=== PATIENT | male | born 1975 | race Caucasian/White ===

== ENCOUNTER 2018-07-30 11:19 | Emergency (ER) | payer BC, OTHER ==
[~2018-07-30] VITALS: Ht 188 cm; Wt 99.8 kg
[2018-07-30] MEDS ORDERED: ONDANSETRON HCL 4 MG/2 ML VIAL IV ONE (11:45)
[2018-07-30 11:51] LABS: Basophils # (auto) 0.1 uL; Basophils % (auto) 0.5 % (0.0-2.0); Eosinophils # (auto) 0 uL; Eosinophils % (auto) 0.3 % (0.0-7.0); Hematocrit 48.7 % (41.0-53.0); Hemoglobin 16.9 g/dL (13.5-17.5); Lymphocytes # (auto) 1.5 uL; Lymphocytes % (auto) 13.5 % (10.0-50.0); Mean Corpuscular Hemoglobin 31.6 pg (28.0-32.0); Mean Corpuscular Hgb Conc. 34.6 g/dL (32.0-36.0); Mean Corpuscular Volume 91.2 fL (80.0-100.0); Monocytes # (auto) 1.6 uL; Monocytes % (auto) 14.3 % (0.0-12.0); Neutrophils # (auto) 8.2 uL; Neutrophils % (auto) 71.4 % (37.0-80.0); Nucleated Red Blood Cells % 0.1 %; Platelet Count (auto) 261 10^3/uL (140-450); Red Blood Cells 5.34 10^6/uL (4.5-5.90); Red Cell Distribution Width 14.4 % (11.8-14.3); White Blood Cell 11.4 10^3/uL (4.4-10.8)
[2018-07-30] MEDS ORDERED: SODIUM CHLORIDE 0.9% 1,000 ML IV ONE ×2 (11:54→14:00)
[2018-07-30] MEDS ORDERED: PANTOPRAZOLE 40 MG/10 ML VIAL IV ONE (12:00)
[2018-07-30 12:18] LABS: Albumin 3.6 g/dL (3.4-5.0); Calcium 9.1 mg/dL (8.5-10.1)
[2018-07-30 12:30] LABS: BUN/Creatinine Ratio 10.8; Bilirubin, Total 0.7 mg/dL (0.2-1.0); Total Protein 7.4 g/dL (6.4-8.2)
[2018-07-30 16:08] VITALS: BP 125/68
== END 2018-07-30 16:57 | disposition home or self-care (01) ==
LOC: ER 11:24
DX: R11.2 Nausea with vomiting, unspecified (principal); T45.1X5A Adverse effect of antineoplastic and immunosuppressive drugs, initial encounter; E78.5 Hyperlipidemia, unspecified; F17.210 Nicotine dependence, cigarettes, uncomplicated; Z88.1 Allergy status to other antibiotic agents; Y92.89 Other specified places as the place of occurrence of the external cause
CPT/HCPCS: 36415; 70450; 80053; 83735; 85025; 94761; 96361; 96374; 96375; 99284; C9113; J2405; J7030

== ENCOUNTER 2018-08-16 15:43 | Inpatient (IN) | payer BC ==
[~2018-08-16] VITALS: Ht 188 cm; Wt 90.7 kg
[2018-08-16 16:56] LABS: Potassium 4.4 mmol/L (3.5-5.1)
[2018-08-16 16:58] LABS: Hematocrit 46.9 % (41.0-53.0); Hemoglobin 15.7 g/dL (13.5-17.5); Mean Corpuscular Hemoglobin 29.8 pg (28.0-32.0); Mean Corpuscular Hgb Conc. 33.6 g/dL (32.0-36.0); Mean Corpuscular Volume 88.9 fL (80.0-100.0); Platelet Count (auto) 380 10^3/uL (140-450); Red Blood Cells 5.27 10^6/uL (4.5-5.90); Red Cell Distribution Width 14.5 % (11.8-14.3); White Blood Cell 5.9 10^3/uL (4.4-10.8)
[2018-08-16 17:07] LABS: BUN/Creatinine Ratio 8.5; Bilirubin, Total 0.8 mg/dL (0.2-1.0); Total Protein 7.4 g/dL (6.4-8.2)
[2018-08-16 17:32] LABS: Basophils % (manual) 0 (0.0-2.0); Blast Cells 0; Metamyelocytes % 0; Myelocytes % 0; Promyelocytes % 0
[2018-08-16] MEDS ORDERED: PANTOPRAZOLE 40 MG/10 ML VIAL IV STA (18:26)
[2018-08-16] MEDS ORDERED: PROCHLORPERAZINE EDISYLATE 5 MG/ML 2ML VIAL IV ONE (18:30)
[2018-08-16 18:50] LABS: Band Neutrophils % (manual) 9; Eosinophils % (manual) 3 (0-7); Lymphocytes % (manual) 28 (10.0-50.0); Monocytes % (manual) 18 (0-12); Reactive Lymphocytes 1
[2018-08-16 19:11] LABS: Amylase 52 U/L (25-115); Lipase 428 U/L (73-393)
[2018-08-16] MEDS ORDERED: LORazepam 0.5 MG TAB PO PRN (21:45)
[2018-08-16] MEDS ORDERED: ACETAMINOPHEN 500 MG TAB PO PRN (21:45)
[2018-08-16] MEDS: SODIUM CHLORIDE 0.9% 1,000 ML IV SCH (21:55)
[2018-08-16] MEDS: PANTOPRAZOLE 40 MG/10 ML VIAL IV SCH (23:16)
--- NOTE | 2018-08-16 23:20 | NUR ---
MS admit from ER ROOT,MELANIA admitted to tele/MS after SBAR received. Patient oriented to MELIZA MAY, primary RN, unit, room, bed, and unit policies regarding patient care and visiting hours. Patient weighed by bed scale and encouraged to call if they need something. All questions and concerns addressed, patient verbalized understanding. Patient has 4 bottles of medications, will send to pharmacy. No active vomiting noted. IV fluids continued, infusing at 75ml/hr to right forearm IV. Skin intact. Denies Pain.
[2018-08-16 23:36] VITALS: BP 111/61
[2018-08-17] MEDS ORDERED: NAP500T PO (01:26)
[2018-08-17] MEDS ORDERED: SIMV5TAB50 PO (01:26)
[2018-08-17] MEDS ORDERED: METO5TAB2 PO (01:26)
[2018-08-17] MEDS ORDERED: PRO10T PO (01:26)
[2018-08-17 04:53] LABS: Hematocrit 38.9 % (41.0-53.0); Mean Corpuscular Hemoglobin 29.8 pg (28.0-32.0); Mean Corpuscular Hgb Conc. 33.5 g/dL (32.0-36.0); Mean Corpuscular Volume 88.8 fL (80.0-100.0); Platelet Count (auto) 290 10^3/uL (140-450); Red Blood Cells 4.38 10^6/uL (4.5-5.90); Red Cell Distribution Width 14.4 % (11.8-14.3); White Blood Cell 5.7 10^3/uL (4.4-10.8)
[2018-08-17 05:00] VITALS: BP 103/58
[2018-08-17 05:12] LABS: Basophils % (manual) 0 (0.0-2.0); Blast Cells 0; Metamyelocytes % 0; Myelocytes % 0; Promyelocytes % 0; Reactive Lymphocytes 0
[2018-08-17 05:15] LABS: BUN/Creatinine Ratio 12.5; Calcium 7.9 mg/dL (8.5-10.1); Potassium 4.3 mmol/L (3.5-5.1)
--- NOTE | 2018-08-17 07:20 | NUR ---
Opening Shift Note Assumed care of patient, awake and alert. No S/S of distress/SOB or pain. Instructed on POC and to call for assist PRN, will continue to monitor for changes Q1hr and PRN.
[2018-08-17 07:33] LABS: Band Neutrophils % (manual) 5; Eosinophils % (manual) 1 (0-7); Lymphocytes % (manual) 26 (10.0-50.0); Monocytes % (manual) 15 (0-12)
[2018-08-17 08:00] VITALS: BP 98/64
[2018-08-17 09:00] VITALS: BP 98/64
[2018-08-17] MEDS: PANTOPRAZOLE 40 MG/10 ML VIAL IV SCH ×2 (09:25→22:01)
[2018-08-17] MEDS: NICOTINE 21MG/24 HR TOPICAL PATCH TD SCH (09:25)
[2018-08-17] MEDS: SODIUM CHLORIDE 0.9% 1,000 ML IV SCH ×2 (09:26→22:14)
[2018-08-17 12:50] VITALS: BP 100/61
[2018-08-17] MEDS ORDERED: GOLYTELY 4L KIT PO ONE (14:45)
[2018-08-17 17:27] VITALS: BP 123/77
--- NOTE | 2018-08-17 19:20 | NUR ---
Opening Shift Note Assumed care of patient, awake and alert. No S/S of distress/SOB or pain. Instructed on POC and to call for assist PRN. Bed in lowest locked position, call light within reach, side rails up x2. Will continue to monitor for changes Q1hr and PRN.
[2018-08-17 20:29] LABS: Urine Bacteria NONE SEEN /hpf (None Seen); Urine Blood Negative /uL (Negative); Urine Specific Gravity 1.013 (1.001-1.035); Urine WBC 1 /hpf (0 - 3)
[2018-08-17 22:00] VITALS: BP 119/72
[2018-08-18 05:12] VITALS: BP 96/60
[2018-08-18 05:54] LABS: Hematocrit 36.9 % (41.0-53.0); Hemoglobin 12.7 g/dL (13.5-17.5); Mean Corpuscular Hemoglobin 30.8 pg (28.0-32.0); Mean Corpuscular Hgb Conc. 34.4 g/dL (32.0-36.0); Mean Corpuscular Volume 89.4 fL (80.0-100.0); Platelet Count (auto) 278 10^3/uL (140-450); Red Blood Cells 4.13 10^6/uL (4.5-5.90); Red Cell Distribution Width 14.3 % (11.8-14.3); White Blood Cell 5.5 10^3/uL (4.4-10.8)
[2018-08-18] MEDS ORDERED: GOLYTELY 4L KIT PO ONE (06:00)
[2018-08-18 06:06] LABS: INR 1.03 (0.9-1.15)
[2018-08-18 06:14] LABS: Basophils % (manual) 0 (0.0-2.0); Blast Cells 0; Metamyelocytes % 0; Myelocytes % 0; Promyelocytes % 0; Reactive Lymphocytes 0
[2018-08-18 06:18] LABS: Potassium 3.8 mmol/L (3.5-5.1)
--- NOTE | 2018-08-18 07:00 | NUR ---
Opening Shift Note Assumed care of the patient from the supervisor grading RN. The patient is A&Ox4, no signs or symptoms of distress. Educated the patient on POC and patient verbalized understanding. The patient's call light is within reach and bed is in the lowest, locked position. Will round hourly and continue to monitor.
[2018-08-18 08:00] VITALS: BP 103/61
[2018-08-18 08:01] LABS: Band Neutrophils % (manual) 15; Eosinophils % (manual) 2 (0-7); Lymphocytes % (manual) 24 (10.0-50.0); Monocytes % (manual) 28 (0-12)
[2018-08-18 09:00] VITALS: BP 103/61
[2018-08-18] MEDS: PANTOPRAZOLE 40 MG/10 ML VIAL IV SCH (09:41)
[2018-08-18] MEDS ORDERED: NALOXONE HCL 0.4 MG/ML VIAL ONE (10:40)
[2018-08-18] MEDS ORDERED: SODIUM CHLORIDE LOCK 10 ML ONE (10:40)
[2018-08-18] MEDS ORDERED: FLUMAZENIL 0.1 MG/ML INJ 10ML MDV IV ONE (10:40)
[2018-08-18] MEDS ORDERED: LIDOCAINE VISCOUS 2% 15ML UD ONE (10:40)
[2018-08-18] MEDS ORDERED: diphenhdrAMINE HCL 50 MG/1 ML VL ONE (10:41)
[2018-08-18] MEDS ORDERED: MIDAZOLAM HCL 5 MG/ML-1ML VIAL ONE (10:42)
[2018-08-18] MEDS ORDERED: fentaNYL CITRATE 100 MCG/2 ML VL ONE (10:43)
--- NOTE | 2018-08-18 11:10 | NUR ---
Patient down for procedure. Taken by myself via wheelchair. Patient is stable with no signs or symptoms of distress.
[2018-08-18] MEDS: MIDAZOLAM HCL 5 MG/ML-1ML VIAL ONE ×3 (11:54→12:08)
[2018-08-18] MEDS: fentaNYL CITRATE 100 MCG/2 ML VL ONE ×3 (11:54→15:05)
--- NOTE | 2018-08-18 12:00 | NUR ---
UNABLE TO OBTAIN VITALS, PT IS NOT IN THE ROOM AT THIS TIME.
--- NOTE | 2018-08-18 12:45 | NUR ---
Patient back on floor Patient A&Ox4 and says he's hungry. Will carry out dietary order.
[2018-08-18] MEDS: NICOTINE 21MG/24 HR TOPICAL PATCH TD SCH (13:50)
[2018-08-18] MEDS: SODIUM CHLORIDE 0.9% 1,000 ML IV SCH (13:50)
[2018-08-18 17:00] VITALS: BP 115/69
[2018-08-18] MEDS: ONDANSETRON HCL 4 MG/2 ML VIAL IV PRN (17:16)
[2018-08-18] MEDS: PANTOPRAZOLE 40 MG TAB PO SCH (21:33)
[2018-08-18 21:56] VITALS: BP 104/67
[2018-08-19] MEDS: SODIUM CHLORIDE 0.9% 1,000 ML IV SCH (03:05)
[2018-08-19 05:17] VITALS: BP 111/69
--- NOTE | 2018-08-19 07:00 | NUR ---
Opening Shift Note Assumed care of the patient from the shiftman RN. The patient is A&Ox4, no signs or symptoms of distress. Educated the patient on POC and patient verbalized understanding.The patient's call light is within reach and bed is in the lowest, locked position. Will round hourly and continue to monitor.
[2018-08-19 07:51] VITALS: BP 101/60
[2018-08-19 08:00] VITALS: BP 101/60
[2018-08-19] MEDS ORDERED: metroNIDAZOLE 500 MG TAB PO ONE (09:30)
[2018-08-19] MEDS ORDERED: LEVOFLOXACIN 500 MG TAB PO ONE (09:30)
[2018-08-19] MEDS: PANTOPRAZOLE 40 MG TAB PO SCH (09:36)
[2018-08-19] MEDS: NICOTINE 21MG/24 HR TOPICAL PATCH TD SCH (09:36)
[2018-08-19 10:11] VITALS: BP 101/60
[2018-08-19] MEDS: ONDANSETRON HCL 4 MG/2 ML VIAL IV PRN (12:40)
[2018-08-19 14:18] VITALS: BP 100/63
--- NOTE | 2018-08-19 15:10 | NUR ---
Reported to Dr. Givens that the patient has had no nausea or vomiting since eating his lunch. He is cleared for discharge. Will carryout discharge orders.
--- NOTE | 2018-08-19 15:40 | NUR ---
Discharge instructions given as ordered. Encourage to follow up with PMD as instructed. All questions and concerns addressed. Patient verbalized understanding. Medication reconciliation form completed and copy given to patient. Home medications held in Pharmacy returned to patient, and needed vaccines given. IV removed with catheter intact, pressure dressing applied.Patient taken to vehicle via wheelchair with all personal belongings, accompanied by staff and family member. No distress noted at time of departure.
--- NOTE | 2018-08-19 15:50 | NUR ---
Spoke with patient's brother The patient's brother gave a 2 RN lieutenant shift supervisor for authorization for records from [facility] from his last admission. The 2nd RN is Rema. Will sign and fax order.
== END 2018-08-19 15:40 | disposition home or self-care (01) | DRG 379 ==
LOC: ER 15:43 → OVERFLOW 21:43 → CENTRAL 23:01
PROVIDERS: ADMIT Nurse Practitioner Family; ATTEND Internal Medicine
PROC: 0DB68ZX Excision of Stomach, Via Natural or Artificial Opening Endoscopic, Diagnostic (ICD-10-PCS; principal; 2018-08-18 11:50)
PROC: 0DBE8ZX Excision of Large Intestine, Via Natural or Artificial Opening Endoscopic, Diagnostic (ICD-10-PCS; 2018-08-18 11:50)
DX: K29.71 Gastritis, unspecified, with bleeding (principal); E78.5 Hyperlipidemia, unspecified; F17.210 Nicotine dependence, cigarettes, uncomplicated; K20.9 Esophagitis, unspecified; K52.9 Noninfective gastroenteritis and colitis, unspecified; K57.90 Diverticulosis of intestine, part unspecified, without perforation or abscess without bleeding; Z85.820 Personal history of malignant melanoma of skin; Z92.21 Personal history of antineoplastic chemotherapy; Z88.1 Allergy status to other antibiotic agents
CPT/HCPCS: 36415; 74176; 80048; 80053; 81001; 82150; 83690; 85007; 85027; 85610; 85730; 86850; 86900; 86901; 87045; 87493; 87899; 94761; 96374; 96375; 96376; C9113; G0378; J2250; J2405

== ENCOUNTER 2018-09-05 19:16 | Inpatient (IN) | payer BC ==
[~2018-09-05] VITALS: Ht 188 cm; Wt 82.1 kg
[~2018-09-05 19:16] MED LIST: METO5TAB2 PO; PRO10T PO; SIMV5TAB50 PO
[2018-09-05] MEDS ORDERED: SODIUM CHLORIDE 0.9% 1,000 ML IV ONE (20:15)
[2018-09-05 20:19] LABS: Basophils # (auto) 0 uL; Eosinophils # (auto) 0 uL; Eosinophils % (auto) 0.1 % (0.0-7.0); Lymphocytes # (auto) 0.7 uL; Mean Corpuscular Hemoglobin 29.3 pg (28.0-32.0); Mean Corpuscular Hgb Conc. 34.6 g/dL (32.0-36.0); Mean Corpuscular Volume 84.5 fL (80.0-100.0)
[2018-09-05 20:25] LABS: Basophils % (auto) 0.1 % (0.0-2.0); Hematocrit 50.2 % (41.0-53.0); Hemoglobin 17.4 g/dL (13.5-17.5); Lymphocytes % (auto) 5.1 % (10.0-50.0); Monocytes % (auto) 13.7 % (0.0-12.0); Platelet Count (auto) 447 10^3/uL (140-450); Red Blood Cells 5.94 10^6/uL (4.5-5.90); Red Cell Distribution Width 14.3 % (11.8-14.3); White Blood Cell 14.8 10^3/uL (4.4-10.8)
[2018-09-05 20:29] LABS: INR 1.6 (0.9-1.15); Partial Thromboplastin Time 31.5 sec (23.78-33.04); Prothrombin Time 16.7 sec (9.27-12.13)
[2018-09-05 20:31] LABS: Alanine Aminotransferase 15 U/L (16-61); Aspartate Aminotransferase 17 U/L (15-37); BUN/Creatinine Ratio 15.9; Blood Urea Nitrogen 17 mg/dL (7-18); Calcium 8.6 mg/dL (8.5-10.1); Carbon Dioxide 20 mmol/L (21-32); GFR African American 97 mL/min; GFR Non-African American 80 mL/min; Glucose 106 mg/dL (74-106); Magnesium 2.8 mg/dL (1.6-2.6); Sodium 121 mmol/L (136-145)
[2018-09-05 20:49] LABS: Albumin 2.8 g/dL (3.4-5.0); Alkaline Phosphatase 129 U/L (45-117); Bilirubin, Total 1.2 mg/dL (0.2-1.0); Total Protein 7.1 g/dL (6.4-8.2)
[2018-09-05 21:17] LABS: Anion Gap 16 (5-15); Chloride 85 mmol/L (98-107); Potassium 2.1 mmol/L (3.5-5.1)
[2018-09-05] MEDS ORDERED: POTASSIUM CHL 20MEQ/100ML 100 ML IV ONE ×2 (21:30→23:15)
[2018-09-05] MEDS ORDERED: HYDROmorphone HCL 2 MG/ML VL IV ONE (21:30)
[2018-09-06 02:29] LABS: Urine Bacteria FEW /hpf (None Seen); Urine Blood TRACE /uL (Negative); Urine Hyaline Cast FEW /lpf (0 - 2); Urine Specific Gravity 1.019 (1.001-1.035); Urine WBC 2 /hpf (0 - 3)
[2018-09-06] MEDS ORDERED: POTASSIUM CHL 20MEQ/100ML 100 ML IV SCH (12:15)
[2018-09-06] MEDS ORDERED: POTASSIUM CHL 20 Meq TABLET PO ONE (12:15)
[2018-09-06] MEDS ORDERED: ONDANSETRON HCL 4 MG/2 ML VIAL IV PRN (12:15)
[2018-09-06] MEDS ORDERED: MORPHINE SULF INJ 2 MG/ML SYRINGE 1ML IV PRN ×2 (12:15)
[2018-09-06] MEDS ORDERED: SODIUM CHLORIDE 0.9% 1,000 ML IV ONE (12:15)
[2018-09-06] MEDS ORDERED: NITROGLYCERIN 0.4 MG SL TAB SL PRN (12:15)
[2018-09-06] MEDS ORDERED: PANTOPRAZOLE 40 MG TAB PO ONE (13:00)
[2018-09-06] MEDS ORDERED: LEVOFLOXACIN 500MG 100 ML IV ONE (13:00)
[2018-09-06] MEDS ORDERED: PROMETHAZINE HCL 25 MG/ML 1ML ONE (14:28)
[2018-09-06 14:30] LABS: BUN/Creatinine Ratio 21.7
[2018-09-06 14:32] LABS: Potassium 2.2 mmol/L (3.5-5.1)
[2018-09-06] MEDS: PROMETHAZINE HCL 25 MG/ML 1ML IV PRN (15:13)
[2018-09-06] MEDS ORDERED: POTASSIUM CHLORIDE 20 MEQ, LIDOCAINE 1% (LOCAL ANESTH.) 2 ML in SODIUM CHL 0.9% 100 ML IV ONE (16:15)
[2018-09-06] MEDS: POTASSIUM CHL 20MEQ/100ML 100 ML IV SCH ×4 (17:00→22:59)
[2018-09-06] MEDS: metroNIDAZOLE 500MG/100ML 100 ML IV SCH ×2 (17:00→21:56)
[2018-09-06 20:08] LABS: BUN/Creatinine Ratio 22.2; Calcium 8.4 mg/dL (8.5-10.1)
[2018-09-06 20:15] LABS: Potassium 2.8 mmol/L (3.5-5.1)
[2018-09-07 03:04] LABS: Basophils # (auto) 0 uL; Basophils % (auto) 0.1 % (0.0-2.0); Eosinophils # (auto) 0.1 uL; Eosinophils % (auto) 0.6 % (0.0-7.0); Hematocrit 44.5 % (41.0-53.0); Hemoglobin 15.1 g/dL (13.5-17.5); Lymphocytes # (auto) 1.3 uL; Lymphocytes % (auto) 9.1 % (10.0-50.0); Mean Corpuscular Hemoglobin 29.3 pg (28.0-32.0); Mean Corpuscular Volume 86.1 fL (80.0-100.0); Monocytes # (auto) 1.6 uL; Monocytes % (auto) 11.3 % (0.0-12.0); Neutrophils # (auto) 10.9 uL; Neutrophils % (auto) 78.9 % (37.0-80.0); Nucleated Red Blood Cells % 0.1 %; Platelet Count (auto) 347 10^3/uL (140-450); Red Blood Cells 5.17 10^6/uL (4.5-5.90); Red Cell Distribution Width 14.5 % (11.8-14.3); White Blood Cell 13.8 10^3/uL (4.4-10.8)
[2018-09-07 03:28] LABS: BUN/Creatinine Ratio 19.7; Calcium 8.1 mg/dL (8.5-10.1); Potassium 3.1 mmol/L (3.5-5.1)
[2018-09-07] MEDS: metroNIDAZOLE 500MG/100ML 100 ML IV SCH ×3 (06:17→21:00)
--- NOTE | 2018-09-07 08:30 | NUR ---
PATIENT ARRIVED TO UNIT VIA WHEELCHAIR. PT AWAKE, ALERT, ORIENTED x4 DENIES DISCOMFORT AT MOMENT. ABLE TO VERBALIZE NEEDS. IV PRESENT TO RAC#20, RIGHT HAND#20. PT REPORTS SKIN INTACT. EFFORTLESS BREATHING ON ROOM AIR. BED IN LOWEST POSITION, WHEELS LOCKED, ORIENTED TO ROOM ENVIRONMENT. CALL LIGHT WITHIN REACH.
[2018-09-07 09:00] VITALS: BP 96/61
--- NOTE | 2018-09-07 09:00 | NUR ---
MRSA NARES SPECIMEN COLLECTED, SENT TO LAB.
[2018-09-07] MEDS: PANTOPRAZOLE 40 MG/10 ML VIAL INJ IV SCH (10:00)
[2018-09-07] MEDS ORDERED: PANTOPRAZOLE 40 MG TAB PO SCH (10:00)
[2018-09-07] MEDS: LEVOFLOXACIN 500MG 100 ML IV SCH (10:22)
[2018-09-07 13:00] VITALS: BP 100/65
[2018-09-07] MEDS: POTASSIUM CHL 20MEQ/100ML 100 ML IV SCH ×3 (13:48→17:34)
[2018-09-07] MEDS: methylPREDNISolone SOD SUCC 125 MG/2 ML VL IV SCH ×2 (13:48→21:00)
[2018-09-07 17:00] VITALS: BP 102/70
--- NOTE | 2018-09-07 19:15 | NUR ---
OPENING NOTE ASSUMED CARE OF PATIENT FROM DAY SHIFT MARE BROWN. PATIENT IS A/OX4 AND IS RESTING IN BED WITH EVEN AND UNLABORED RESPIRATIONS. HE DENIES ANY PAIN OR NAUSEA AT THIS TIME. NO S/S OF DISTRESS ARE NOTED. DISCUSSED POC WITH PATIENT AND ANSWERED QUESTIONS AND CONCERNS. BED IS LOW, LOCKED, CALL LIGHT IS IN REACH. WILL CONTINUE TO MONITOR FOR CHANGES Q1 AND PRN. .
[2018-09-07] MEDS: PROMETHAZINE HCL 25 MG/ML 1ML IV PRN (21:20)
[2018-09-07 22:00] VITALS: BP 106/69
[2018-09-08 05:00] VITALS: BP 100/64
[2018-09-08] MEDS: metroNIDAZOLE 500MG/100ML 100 ML IV SCH (05:02)
[2018-09-08] MEDS: methylPREDNISolone SOD SUCC 125 MG/2 ML VL IV SCH ×3 (05:03→21:12)
[2018-09-08] MEDS: PROMETHAZINE HCL 25 MG/ML 1ML IV PRN ×3 (05:40→20:42)
[2018-09-08 06:35] LABS: Basophils # (auto) 0 uL; Basophils % (auto) 0.1 % (0.0-2.0); Eosinophils # (auto) 0 uL; Eosinophils % (auto) 0.1 % (0.0-7.0); Hematocrit 44.1 % (41.0-53.0); Hemoglobin 14.8 g/dL (13.5-17.5); Lymphocytes # (auto) 1.3 uL; Lymphocytes % (auto) 8.8 % (10.0-50.0); Mean Corpuscular Hgb Conc. 33.6 g/dL (32.0-36.0); Mean Corpuscular Volume 86.3 fL (80.0-100.0); Monocytes # (auto) 0.7 uL; Monocytes % (auto) 4.9 % (0.0-12.0); Neutrophils # (auto) 12.3 uL; Neutrophils % (auto) 86.1 % (37.0-80.0); Platelet Count (auto) 324 10^3/uL (140-450); Red Blood Cells 5.11 10^6/uL (4.5-5.90); Red Cell Distribution Width 14.8 % (11.8-14.3); White Blood Cell 14.3 10^3/uL (4.4-10.8)
[2018-09-08 06:40] LABS: Calcium 6.7 mg/dL (8.5-10.1); Magnesium 3.1 mg/dL (1.6-2.6)
[2018-09-08 06:42] LABS: BUN/Creatinine Ratio 18.1
[2018-09-08 06:57] LABS: Potassium 2.6 mmol/L (3.5-5.1)
--- NOTE | 2018-09-08 06:58 | NUR ---
CRITICAL LAB VALUE K-2.6/HOSPITALIST PAGED
--- NOTE | 2018-09-08 07:12 | NUR ---
MARINE STRUCTURAL WELDER BONDS/NEW ORDERS RECEIVED FOR K 2.6 ORDER RECEIVED FOR 60MEQ POTASSIUM IV
[2018-09-08] MEDS ORDERED: POTASSIUM CHLORIDE 60 MEQ, LIDOCAINE 1% (LOCAL ANESTH.) 6 ML in SODIUM CHL 0.9% 500 ML IV ONE (07:15)
--- NOTE | 2018-09-08 07:30 | NUR ---
OPENING SHIFT NOTE: Received report from NOC RNMichaela. Assumed care of patient. Patient resting in bed, denies pain. Attempting to eat breakfast after receiving Phengren earlier. Bed in lowest position, rails x2 up and call light within reach. Updated on plan of care. Will continue to monitor.
--- NOTE | 2018-09-08 07:30 | NUR ---
CARE TRANSFERRED TO DAY SHIFT MARE WETZEL
[2018-09-08 08:00] VITALS: BP 103/70
[2018-09-08 08:39] VITALS: BP 103/70
[2018-09-08] MEDS: PANTOPRAZOLE 40 MG/10 ML VIAL INJ IV SCH (10:00)
[2018-09-08] MEDS: LEVOFLOXACIN 500MG 100 ML IV SCH (11:01)
[2018-09-08 13:00] VITALS: BP 108/73
--- NOTE | 2018-09-08 15:08 | NUR ---
Nutrition consult/assessment Notes please see attached link for complete assessment Est. Needs BW [id number] kcal (30-33 kcal/kgBW), 78-94 gms pro (1.0-1.2 gms/kgBW). Will continue to monitor pertinent labs and reassess nutrient need prn Addendum: 09/08/18 at [address] Amended: Links added.
--- NOTE | 2018-09-08 15:30 | NUR ---
EMESIS: PATIENT HAD ONE EPISODE OF EMESIS. 500MLS OF CLOUDY EMESIS WITH FOOD PARTICLES OUT. Signed: 09/08/18 at 1928 by SN ESTIVEN <Co-Signature Required> Co-Signed: 09/08/18 at 1928 by DAMARI REIS RN
[2018-09-08 17:00] VITALS: BP 107/73
--- NOTE | 2018-09-08 19:18 | NUR ---
CLOSING SHIFT NOTE: Report given to NOC RNMichaela. Endorsed care of patient.
[2018-09-08 19:20] LABS: Calcium 8.3 mg/dL (8.5-10.1); Potassium 3.1 mmol/L (3.5-5.1)
--- NOTE | 2018-09-08 19:25 | NUR ---
OPENING NOTE ASSUMED CARE OF PATIENT FROM DAY SHIFT RN DAMARI. PATIENT IS A/OX4 AND IS RESTING IN BED WITH EVEN AND UNLABORED RESPIRATIONS. HE DENIES ANY PAIN OR NAUSEA AT THIS TIME AND IS CURRENTLY EATING DINNER. NO S/S OF DISTRESS ARE NOTED. DISCUSSED POC WITH PATIENT AND ANSWERED QUESTIONS AND CONCERNS. BED IS LOW, LOCKED, CALL LIGHT IS IN REACH. WILL CONTINUE TO MONITOR FOR CHANGES Q1 AND PRN. .
[2018-09-08 22:00] VITALS: BP 112/75
--- NOTE | 2018-09-08 23:53 | NUR ---
DINNER PATIENT ATE 25%. TOLERATED WELL. HE WAS GIVEN PHENERGAN AT 1308 AND 2042. NO VOMITING.
[2018-09-09 05:20] VITALS: BP 104/70
[2018-09-09] MEDS: methylPREDNISolone SOD SUCC 125 MG/2 ML VL IV SCH ×3 (05:48→21:55)
[2018-09-09] MEDS: PROMETHAZINE HCL 25 MG/ML 1ML IV PRN ×3 (05:48→17:59)
[2018-09-09 06:56] LABS: BUN/Creatinine Ratio 17.7; Magnesium 2.9 mg/dL (1.6-2.6)
[2018-09-09] MEDS: ENSURE CLEAR Mixed Berry 8oz Carton PO SCH ×3 (07:32→17:07)
--- NOTE | 2018-09-09 07:32 | NUR ---
CARE TRANSFERRED TO DAY SHIFT MARE ARENAS
[2018-09-09 07:33] VITALS: BP 103/72
[2018-09-09 07:33] LABS: Potassium 2.6 mmol/L (3.5-5.1)
--- NOTE | 2018-09-09 07:33 | NUR ---
Opening Shift Note Received report from Michaela GARVEY. Assumed care of patient, awake and alert. No S/S of distress/SOB or pain. Instructed on POC and to call for assist PRN, will continue to monitor for changes Q1hr and PRN.
--- NOTE | 2018-09-09 07:33 | NUR ---
RECEIVED CALL FROM LAB, POTASSIUM OF 2.6. PAGED HOSPITALIST.
--- NOTE | 2018-09-09 07:35 | NUR ---
returned call Álvaro MACHADO returned call, updated on patient status and reason for call, orders received to give patient Potassium 40meqs PO x 1. Continue care.
[2018-09-09] MEDS ORDERED: POTASSIUM CHL 20 Meq TABLET PO ONE (07:45)
[2018-09-09 08:00] VITALS: BP 103/72
[2018-09-09] MEDS: PANTOPRAZOLE 40 MG TAB PO SCH (09:36)
[2018-09-09 13:17] VITALS: BP 104/66
--- NOTE | 2018-09-09 15:45 | NUR ---
Dr. Givens at bedside. Received new verbal orders, verified. See orders.
[2018-09-09] MEDS: POTASSIUM CHL 20MEQ/100ML 100 ML IV SCH ×3 (16:35→20:59)
[2018-09-09 17:22] VITALS: BP 106/69
--- NOTE | 2018-09-09 18:12 | NUR ---
K-RIDER 1ST BAG STILL ONGOING.
--- NOTE | 2018-09-09 19:53 | NUR ---
OPENING NOTES RECEIVED REPORT FROM DAY SHIFT NURSE. PT IS A/OX4 WITH NO S/S OF DISTRESS NOR PAIN WHILE ON 2 L. PT SHOWS NO S/S OF SOB. PT CURRENTLY INFUSING POTASSIUM. BED IS IN LOWEST POSITION WITH SIDE RAILS UP X 2 AND CALL LIGHT IS WITH IN REACH. BED BRAKES ARE LOCKED AND HOB IS 30 DEGREES. DISCUSSED POC WITH PATIENT. PT VERBALIZED UNDERSTANDING.
--- NOTE | 2018-09-09 20:58 | NUR ---
2ND BAG OF POTASSIUM 2ND BAG OF POTASSIUM FINISHED, WILL INFUSE 3RD BAG OF POTASSIUM.
[2018-09-09 22:00] VITALS: BP 107/70
--- NOTE | 2018-09-09 23:09 | NUR ---
3RD BAG OF POTASSIUM INFUSED
[2018-09-10 05:43] VITALS: BP 104/66
[2018-09-10] MEDS: methylPREDNISolone SOD SUCC 125 MG/2 ML VL IV SCH ×2 (05:48→14:32)
[2018-09-10] MEDS: PROMETHAZINE HCL 25 MG/ML 1ML IV PRN ×3 (05:56→18:51)
--- NOTE | 2018-09-10 07:18 | NUR ---
CLOSING NOTES ENDORSED CARE TO DAY SHIFT NURSELINDA.
--- NOTE | 2018-09-10 07:20 | NUR ---
Opening Shift Note Assumed care of patient, awake and alert. No S/S of distress/SOB or pain. Per patient, his diarrhea is getting less watery and has some particles now compared to yesterday. Instructed on POC and to call for assist PRN, will continue to monitor for changes Q1hr and PRN.
[2018-09-10 07:43] VITALS: BP 100/64
[2018-09-10] MEDS: ENSURE CLEAR Mixed Berry 8oz Carton PO SCH ×3 (10:17→18:51)
[2018-09-10] MEDS: PANTOPRAZOLE 40 MG TAB PO SCH (10:21)
[2018-09-10 11:54] VITALS: BP 96/66
[2018-09-10 15:11] LABS: Hematocrit 39.5 % (41.0-53.0); Hemoglobin 13.3 g/dL (13.5-17.5); Mean Corpuscular Hemoglobin 29.2 pg (28.0-32.0); Mean Corpuscular Hgb Conc. 33.7 g/dL (32.0-36.0); Mean Corpuscular Volume 86.8 fL (80.0-100.0); Platelet Count (auto) 289 10^3/uL (140-450); Red Blood Cells 4.55 10^6/uL (4.5-5.90); Red Cell Distribution Width 15.1 % (11.8-14.3); White Blood Cell 16.3 10^3/uL (4.4-10.8)
[2018-09-10 15:37] LABS: Basophils % (manual) 0 (0.0-2.0); Blast Cells 0; Eosinophils % (manual) 0 (0-7); Myelocytes % 0; Promyelocytes % 0; Reactive Lymphocytes 0
[2018-09-10 16:25] VITALS: BP 97/64
[2018-09-10 17:33] LABS: Band Neutrophils % (manual) 1; Lymphocytes % (manual) 11 (10.0-50.0); Metamyelocytes % 1; Monocytes % (manual) 5 (0-12)
[2018-09-10] MEDS ORDERED: POTASSIUM CHL 20 Meq TABLET PO ONE ×3 (17:45→20:30)
[2018-09-10] MEDS ORDERED: POTASSIUM EFFERVESENT TAB 25 MEQ PO ONE (18:00)
[2018-09-10 18:26] VITALS: BP 97/64
--- NOTE | 2018-09-10 19:10 | NUR ---
Patient and mom requested to have potassium level checked before he goes home [place]. Called lab and put in a stat order for potassium. Patient was also given Potassium Effervescent tablet 50 mEq one time dose karis per Dr. Givens's order to give prior to discharge.
--- NOTE | 2018-09-10 19:15 | NUR ---
Closing Note Patient is in bed, having his dinner. Mom at bedside. Patient is awaiting potassium result and pending discharge. Endorsed care to night RN.
--- NOTE | 2018-09-10 19:25 | NUR ---
OPENING NOTES RECEIVED PASS OFF FROM DAY SHIFT RN. THE PATIENT IS A/OX4 WITH NO S/S OF DISTRESS OR PAIN WHILE ON 2 L. THE PATIENT SHOWS NO S/S OF SOB. THE PATIENT IS CURRENTLY RESTING IN BED AND HIS MOTHER IS PRESENT AT BEDSIDE. THE BED IS IN LOWEST POSITION WITH SIDE RAILS UP X 2 AND CALL LIGHT IS WITH IN REACH. BED BRAKES ARE LOCKED AND HOB IS 30 DEGREES. DISCUSSED POC WITH PATIENT. PT VERBALIZED UNDERSTANDING.
--- NOTE | 2018-09-10 20:10 | NUR ---
THE PATIENT'S POTASSIUM IS 3.[address] DIAZ ABOUT RESULTS.
--- NOTE | 2018-09-10 20:20 | NUR ---
Received new verbal orders, from Dr. Givens. Order has been verified. See orders. Dr. Givens states that patient can be discharged after he receives additional potassium PO.
[2018-09-10] MEDS ORDERED: POTASSIUM EFFERVESENT TAB 25 MEQ GT ONE (21:00)
--- NOTE | 2018-09-10 21:40 | NUR ---
The patient was educated on his discharge instruction. The patient verbalized his understanding. The patient has been transported off the unit by the DIRECTOR OF OCCUPATIONAL THERAPY.
[2018-09-10 22:00] VITALS: BP 97/58
[2018-09-13 10:19] LABS: Hepatitis B Surface Antibody Positive
[2018-09-13 10:56] LABS: Hepatitis A Total Antibody Positive
[2018-09-13 14:02] LABS: Hepatitis C Antibody Negative (Negative)
[2018-09-13 14:03] LABS: Hepatitis B Core Total AB Negative; Hepatitis B Surface Antigen Negative (Negative)
== END 2018-09-10 21:40 | disposition home or self-care (01) | DRG 394 ==
LOC: EDBD 19:16 → ER 19:23 → TELE 09-06 12:14 → TELE-EAST 09-07 08:21
PROVIDERS: ADMIT Internal Medicine; ATTEND Internal Medicine
DX: K52.1 Toxic gastroenteritis and colitis (principal); E87.1 Hypo-osmolality and hyponatremia; C79.9 Secondary malignant neoplasm of unspecified site; E44.0 Moderate protein-calorie malnutrition; R55 Syncope and collapse; C43.9 Malignant melanoma of skin, unspecified; Z92.21 Personal history of antineoplastic chemotherapy; E87.6 Hypokalemia; Z88.8 Allergy status to other drugs, medicaments and biological substances; T45.1X5A Adverse effect of antineoplastic and immunosuppressive drugs, initial encounter; Y92.89 Other specified places as the place of occurrence of the external cause; Z68.23 Body mass index [BMI] 23.0-23.9, adult; E86.0 Dehydration; F17.210 Nicotine dependence, cigarettes, uncomplicated; K21.9 Gastro-esophageal reflux disease without esophagitis; Z80.0 Family history of malignant neoplasm of digestive organs; Z82.49 Family history of ischemic heart disease and other diseases of the circulatory system; Z82.5 Family history of asthma and other chronic lower respiratory diseases
CPT/HCPCS: 36415; 70450; 71045; 74176; 80048; 80053; 81001; 82962; 83735; 84100; 84132; 84484; 85007; 85025; 85027; 85610; 85730; 86704; 86706; 86708; 86803; 87081; 87340; 87493; 93005; 96361; 96365; 96366; G0378; J1956; J2001; J3480; J3490

== ENCOUNTER 2018-09-27 17:29 | Inpatient (IN) | payer BC ==
[~2018-09-27] VITALS: Ht 188 cm; Wt 75.9 kg
[2018-09-27 18:08] LABS: Basophils # (auto) 0.1 uL; Basophils % (auto) 0.5 % (0.0-2.0); Eosinophils # (auto) 0.2 uL; Eosinophils % (auto) 1.4 % (0.0-7.0); Hematocrit 46.2 % (41.0-53.0); Hemoglobin 15.8 g/dL (13.5-17.5); Lymphocytes % (auto) 13.7 % (10.0-50.0); Mean Corpuscular Hemoglobin 29.9 pg (28.0-32.0); Mean Corpuscular Hgb Conc. 34.1 g/dL (32.0-36.0); Mean Corpuscular Volume 87.6 fL (80.0-100.0); Monocytes % (auto) 7.1 % (0.0-12.0); Neutrophils # (auto) 11.4 uL; Neutrophils % (auto) 77.3 % (37.0-80.0); Platelet Count (auto) 328 10^3/uL (140-450); Red Blood Cells 5.27 10^6/uL (4.5-5.90); Red Cell Distribution Width 17.5 % (11.8-14.3); White Blood Cell 14.7 10^3/uL (4.4-10.8)
[2018-09-27 18:25] LABS: Albumin 3.4 g/dL (3.4-5.0); Calcium 8.3 mg/dL (8.5-10.1)
[2018-09-27 18:28] LABS: Bilirubin, Total 1.4 mg/dL (0.2-1.0); Total Protein 7.1 g/dL (6.4-8.2)
[2018-09-27 18:39] LABS: Potassium 1.9 mmol/L (3.5-5.1)
[2018-09-27] MEDS ORDERED: SODIUM CHLORIDE 0.9% 1,000 ML IVB ONE (18:59)
[2018-09-27] MEDS ORDERED: ONDANSETRON HCL 4 MG/2 ML VIAL IV ONE (19:00)
[2018-09-27] MEDS ORDERED: POTASSIUM CHL 20 Meq TABLET PO ONE (19:15)
[2018-09-27] MEDS ORDERED: POTASSIUM CHL 20MEQ/100ML 100 ML IV ONE (19:15)
[2018-09-27 19:16] LABS: Magnesium 2.7 mg/dL (1.6-2.6)
[2018-09-27] MEDS ORDERED: POTASSIUM EFFERVESENT TAB 25 MEQ GT ONE (20:00)
[2018-09-27] MEDS: metroNIDAZOLE 500MG/100ML 100 ML IV SCH (22:00)
[2018-09-27 22:14] LABS: Urine Bacteria NONE SEEN /hpf (None Seen); Urine Blood Negative /uL (Negative); Urine Specific Gravity 1.005 (1.001-1.035); Urine WBC 2 /hpf (0 - 3)
[2018-09-27] MEDS ORDERED: ACETAMINOPHEN 500 MG TAB PO PRN (22:30)
[2018-09-27] MEDS ORDERED: MORPHINE SULF INJ 2 MG/ML SYRINGE 1ML IV PRN (22:30)
[2018-09-27] MEDS ORDERED: HYDROcodone-ACET 5/325MG TAB PO PRN (22:30)
[2018-09-27] MEDS: SODIUM CHLORIDE 0.9% 1,000 ML IV SCH (22:43)
[2018-09-27 23:38] VITALS: BP 121/75
--- NOTE | 2018-09-28 | NUR ---
Telemetry admit from ER ROOT,MELANIA admitted to Telemetry unit after SBAR received. Patient oriented to TAWANA AHMADI, RN primary RN, unit, room, bed, and unit policies regarding patient care and visiting hours. Patient now on continuous telemetry monitoring, tele box #[id number] and telemetry reading on arrival to unit is NSR. Patient IS ON ROOM AIR, weighed by bedscale and encouraged to call if they need something. All questions and concerns addressed, patient verbalized understanding. Note: A&O X 4, NS INFUSING AT 100ML/HR, DENIES ANY PAIN AND NAUSEA, INSTRUCTED TO COLLECT 3RD LOOSE STOOL FOR CDIFF TEST.
[2018-09-28] MEDS ORDERED: DIPH2.5T73 PO (01:45)
[2018-09-28] MEDS ORDERED: CHL4PW PO (01:45)
[2018-09-28] MEDS ORDERED: CIPR-187 PO (01:45)
[2018-09-28] MEDS ORDERED: PANT40TA2 PO (01:45)
[2018-09-28] MEDS ORDERED: FAM20T PO (01:45)
[2018-09-28 05:00] VITALS: BP 103/64
[2018-09-28] MEDS: metroNIDAZOLE 500MG/100ML 100 ML IV SCH (05:37)
[2018-09-28 06:23] LABS: Calcium 8.1 mg/dL (8.5-10.1)
[2018-09-28 06:26] LABS: Basophils # (auto) 0 uL; Basophils % (auto) 0.2 % (0.0-2.0); Eosinophils # (auto) 0.3 uL; Eosinophils % (auto) 2.4 % (0.0-7.0); Hemoglobin 14.3 g/dL (13.5-17.5); Lymphocytes # (auto) 2.9 uL; Lymphocytes % (auto) 23.1 % (10.0-50.0); Mean Corpuscular Hemoglobin 29.9 pg (28.0-32.0); Monocytes % (auto) 7.6 % (0.0-12.0); Neutrophils # (auto) 8.5 uL; Neutrophils % (auto) 66.7 % (37.0-80.0); Platelet Count (auto) 280 10^3/uL (140-450); Red Blood Cells 4.77 10^6/uL (4.5-5.90); Red Cell Distribution Width 17.4 % (11.8-14.3); White Blood Cell 12.7 10^3/uL (4.4-10.8)
[2018-09-28 06:33] LABS: Potassium 2.3 mmol/L (3.5-5.1)
--- NOTE | 2018-09-28 06:42 | NUR ---
PAGED HOSPITALIST FOR CRITICAL LAB OF K-2.3. WAITING FOR CALL BACK.
--- NOTE | 2018-09-28 07:06 | NUR ---
ORDER TO GIVE 40 MEQ POTASSIUM IVX1 AND 60MEQ POTASSIUM PO X1 PER HOSPITALIST.
[2018-09-28] MEDS ORDERED: POTASSIUM EFFERVESENT TAB 25 MEQ PO ONE ×2 (07:15→20:45)
--- NOTE | 2018-09-28 07:15 | NUR ---
STOOL FOR CDIFF SENT.
[2018-09-28] MEDS: POTASSIUM CHL 20MEQ/100ML 100 ML IV SCH ×2 (08:14→09:37)
[2018-09-28 08:38] VITALS: BP 118/72
[2018-09-28] MEDS: PANTOPRAZOLE 40 MG TAB PO SCH (09:37)
[2018-09-28] MEDS: SODIUM CHLORIDE 0.9% 1,000 ML IV SCH ×2 (09:40→18:32)
[2018-09-28 13:00] VITALS: BP 112/71
--- NOTE | 2018-09-28 16:20 | NUR ---
STOOL SAMPLE SENT TO LAB FOR STOOL WBC AND STOOL CULTURE.
[2018-09-28 17:00] VITALS: BP 98/62
--- NOTE | 2018-09-28 18:45 | NUR ---
pt had total of 7 BM watery green color in moderate amount.
--- NOTE | 2018-09-28 19:30 | NUR ---
OPENING SHIFT NOTE ASSUMED CARE OF PATIENT FROM DAY SHIFT RN BALJEET. PATIENT IS A/OX4 WITH EVEN AND UNLABORED RESPIRATIONS. NO S/S OF DISTRESS NOTED. PATIENT DENIES ANY PAIN OR NAUSEA AT THIS TIME. BED IS IN LOWEST POSITION, LOCKED, AND CALL LIGHT IS IN REACH. REVERSE ISO IN PLACE. PATIENT INSTRUCTED ON POC AND TO CALL FOR ASSIST PRN. WILL CONTINUE TO MONITOR FOR CHANGES Q1 AND PRN.
--- NOTE | 2018-09-28 20:10 | NUR ---
CRITICAL LAB POTASSIUM LEFT A MESSAGE FOR DR HERNANDEZ. WAITING FOR CALL BACK.
[2018-09-28 20:12] LABS: BUN/Creatinine Ratio 7.8; Calcium 7.8 mg/dL (8.5-10.1)
[2018-09-28 20:14] LABS: Potassium 2.2 mmol/L (3.5-5.1)
--- NOTE | 2018-09-28 20:30 | NUR ---
DR MUSTAFA RETURNED CALL UPDATED ON PATIENT STATUS AND CRITICAL POTASSIUM LEVEL. NEW ORDERS RECEIVED BY TELEPHONE AND VERIFIED BY READ BACK. WILL CONTINUE CARE.
[2018-09-28] MEDS ORDERED: POTASSIUM CHL 20 Meq TABLET PO ONE (20:45)
[2018-09-28] MEDS ORDERED: POTASSIUM CHLORIDE 40 MEQ, LIDOCAINE 1% (LOCAL ANESTH.) 4 ML in SODIUM CHL 0.9% 100 ML IV ONE (20:45)
[2018-09-28] MEDS: ONDANSETRON HCL 4 MG/2 ML VIAL IV PRN (21:30)
[2018-09-28 21:59] VITALS: BP 114/61
[2018-09-29] MEDS ORDERED: POTASSIUM EFFERVESENT TAB 25 MEQ PO ONE ×5 (01:15→23:45)
[2018-09-29] MEDS: SODIUM CHLORIDE 0.9% 1,000 ML IV SCH ×2 (04:30→14:30)
[2018-09-29 04:55] VITALS: BP 109/67
[2018-09-29] MEDS: ONDANSETRON HCL 4 MG/2 ML VIAL IV PRN ×3 (06:30→18:50)
[2018-09-29 06:45] LABS: Basophils # (auto) 0 uL; Basophils % (auto) 0.4 % (0.0-2.0); Eosinophils # (auto) 0.3 uL; Eosinophils % (auto) 2.9 % (0.0-7.0); Hematocrit 39.6 % (41.0-53.0); Hemoglobin 13.4 g/dL (13.5-17.5); Lymphocytes # (auto) 2.8 uL; Lymphocytes % (auto) 24.1 % (10.0-50.0); Mean Corpuscular Hemoglobin 29.4 pg (28.0-32.0); Mean Corpuscular Hgb Conc. 33.9 g/dL (32.0-36.0); Mean Corpuscular Volume 86.8 fL (80.0-100.0); Monocytes % (auto) 8.3 % (0.0-12.0); Neutrophils # (auto) 7.5 uL; Neutrophils % (auto) 64.3 % (37.0-80.0); Nucleated Red Blood Cells % 0.1 %; Platelet Count (auto) 277 10^3/uL (140-450); Red Blood Cells 4.56 10^6/uL (4.5-5.90); Red Cell Distribution Width 17.2 % (11.8-14.3); White Blood Cell 11.7 10^3/uL (4.4-10.8)
[2018-09-29 06:49] LABS: INR 1.06 (0.9-1.15); Partial Thromboplastin Time 27.2 sec (23.64-32.05)
[2018-09-29 07:00] LABS: BUN/Creatinine Ratio 6.2
--- NOTE | 2018-09-29 07:30 | NUR ---
CARE TRANSFERRED TO DAY SHIFT MARE GARCIA
[2018-09-29 07:31] LABS: Potassium 2.8 mmol/L (3.5-5.1)
[2018-09-29] MEDS ORDERED: POTASSIUM CHLORIDE 40 MEQ, LIDOCAINE 1% (LOCAL ANESTH.) 4 ML in SODIUM CHL 0.9% 100 ML IV ONE ×2 (07:45→16:00)
[2018-09-29] MEDS ORDERED: POTASSIUM CHL 20 Meq TABLET PO ONE ×2 (07:45→09:30)
--- NOTE | 2018-09-29 08:00 | NUR ---
ASSESSMENT NOTE PATIENT IS ALERT ORIENTED X4, RESTING IN BED COMFORTABLY, NO DISTRESS NOTED, CONTINUE SLEEPY, GENERALIS WEAKNESS SNOTED, PAIN 0/10 AT THIS TIME, ABLE TO SELF REPOSITION AND VERBALIS HIS NEEDS, CALL LIGHT WITHIN REACH.
[2018-09-29 08:38] VITALS: BP 105/63
--- NOTE | 2018-09-29 09:22 | NUR ---
DR HERNANDEZ AT BED SIDE, DISCUSSING WITH PT THE DISCHARGE PLANING FOR TODAY
[2018-09-29] MEDS: PANTOPRAZOLE 40 MG TAB PO SCH (09:48)
--- NOTE | 2018-09-29 10:15 | NUR ---
FAMILY PATIENT'S MOM AT BED SIDE OPPOSING THE DISCHARGE HOME, DR HERNANDEZ MADE AWARE
[2018-09-29] MEDS ORDERED: DIPHENOXYLATE W/ATROPINE 2.5 MG TAB PO PRN (10:30)
--- NOTE | 2018-09-29 11:15 | NUR ---
SPOKE WITH DR HERNANDEZ NEW ORDERS RECEIVED REGARDING POTASSIUM LAB LEVELS. ORDER TO GIVE 50 MEQ POTASSIUM PO EFFERVESCENT NOW AND AWAIT PENDING POTASSIUM LEVEL. IF LEVEL LESS THAN 3.3 GIVE 40 MEQ IV OVER 4 HOURS. WILL CARRY OUT NEW ORDERS. Addendum: 09/30/18 at 0023 by TEODORO ELLIOTT RN RN WRONG TIME. RIGHT TIME [id number]
[2018-09-29 12:38] VITALS: BP 106/71
[2018-09-29] MEDS ORDERED: POTA-180 PO (12:48)
--- NOTE | 2018-09-29 14:07 | NUR ---
PATIENT IS DONE WITH THE [facility]ER ORDER PER DR MAURO REQUEST.
--- NOTE | 2018-09-29 14:51 | NUR ---
ss order faxed to [facility]
[2018-09-29] MEDS: DIPHENOXYLATE W/ATROPINE 2.5 MG TAB PO PRN ×3 (14:56→21:46)
--- NOTE | 2018-09-29 14:57 | NUR ---
BM PT HAS LARGE WATERY DIARRHEA ON THE FLOOR WAS UNABLE TO MAKE IT TO BATHROOM , KEPT CLEAN AND DRY, LOMOTIL GIVEN TO PT.
--- NOTE | 2018-09-29 15:19 | NUR ---
per Estrellita from [facility], auth for is [id number]
[2018-09-29 15:28] LABS: BUN/Creatinine Ratio 8.5; Calcium 8.1 mg/dL (8.5-10.1)
--- NOTE | 2018-09-29 15:30 | NUR ---
HOME HEALTH PATIENT IS APPROVED WITH [facility]
--- NOTE | 2018-09-29 15:39 | NUR ---
PAGE DR HERNANDEZ K+ 3.0
--- NOTE | 2018-09-29 15:51 | NUR ---
DR HERNANDEZ CALLED BACK WITH NEW ORDERS TO GIVE POTASSIUM K RIDER OF 40 NOW AND 50 PO AT 1830, THEN REPEAT LAB AFTER ITS DONE
[2018-09-29 16:38] VITALS: BP 102/68
[2018-09-29 17:00] VITALS: BP 106/65
--- NOTE | 2018-09-29 18:30 | NUR ---
BM PT HAS 3 WATERY DIARRHEA TODAY
--- NOTE | 2018-09-29 19:00 | NUR ---
K RIDER CONTINUE INFUSING, PT TOLERATED WELL, REPORT GIVEN TO NAIL SETTER
--- NOTE | 2018-09-29 19:35 | NUR ---
OPENING SHIFT NOTE ASSUMED CARE OF PATIENT FROM DAY SHIFT RN JOSE. PATIENT IS A/OX4 WITH EVEN AND UNLABORED RESPIRATIONS. NO S/S OF DISTRESS NOTED. PATIENT DENIES ANY PAIN OR NAUSEA AT THIS TIME. HIS POTASSIUM IS CURRENTLY 3.0 AND HE IS RUNNING 40 MEQ IV. WILL ORDER BMP ORDERED ONE HOUR AFTER INFUSION IS FINISHED. BED IS IN LOWEST POSITION, LOCKED, AND CALL LIGHT IS IN REACH. REVERSE ISO IN PLACE. PATIENT INSTRUCTED ON POC AND TO CALL FOR ASSIST PRN. WILL CONTINUE TO MONITOR FOR CHANGES Q1 AND PRN.
[2018-09-29 22:00] VITALS: BP 99/62
[2018-09-29 23:39] LABS: Calcium 7.7 mg/dL (8.5-10.1)
[2018-09-29 23:46] LABS: BUN/Creatinine Ratio 8.6
[2018-09-29 23:47] LABS: Potassium 2.9 mmol/L (3.5-5.1)
--- NOTE | 2018-09-30 | NUR ---
CRITICAL POTASSIUM LAB 2.[address] HERNANDEZ ORDERS AND GIVE 40 MEQ IV OVER 4 HOURS
[2018-09-30] MEDS ORDERED: POTASSIUM CHLORIDE 40 MEQ, LIDOCAINE 1% (LOCAL ANESTH.) 4 ML in SODIUM CHL 0.9% 100 ML IV ONE (00:30)
[2018-09-30] MEDS ORDERED: POTASSIUM CHLORIDE 20 MEQ, LIDOCAINE 1% (LOCAL ANESTH.) 2 ML in SODIUM CHL 0.9% 100 ML IV ONE (00:45)
[2018-09-30] MEDS: SODIUM CHLORIDE 0.9% 1,000 ML IV SCH ×2 (00:56→10:51)
[2018-09-30] MEDS: POTASSIUM CHL 20MEQ/100ML 100 ML IV SCH ×2 (01:01→03:22)
[2018-09-30 05:26] VITALS: BP 95/65
[2018-09-30] MEDS: ONDANSETRON HCL 4 MG/2 ML VIAL IV PRN ×2 (05:35→11:31)
[2018-09-30] MEDS: DIPHENOXYLATE W/ATROPINE 2.5 MG TAB PO PRN (05:36)
--- NOTE | 2018-09-30 07:04 | NUR ---
K BRITTNEY DONE/POTASSIUM LAB ORDERED STAT K BRITTNEY FINISHED AT 0556. BMP ORDERED ONE HOUR LATER STAT. MORNING NURSE TO AWAIT NEW POTASSIUM LAB RESULT.
--- NOTE | 2018-09-30 07:06 | NUR ---
CARE TRANSFERRED TO DAY SHIFT RN
--- NOTE | 2018-09-30 07:20 | NUR ---
Opening Shift Note Assumed care of patient, awake and alert. No S/S of distress/SOB or pain. Instructed on POC and to call for assist PRN, will continue to monitor for changes Q1hr and PRN. Bed locked in lowest position with two side rails up and call light in reach.
[2018-09-30 07:58] LABS: BUN/Creatinine Ratio 10.4; Calcium 7.6 mg/dL (8.5-10.1)
[2018-09-30 08:00] VITALS: BP 99/58
[2018-09-30 08:05] LABS: Potassium 2.9 mmol/L (3.5-5.1)
--- NOTE | 2018-09-30 08:08 | NUR ---
RECEIVED CALL FROM LAB ([facility]) PATIENTS POTASSIUM LEVEL 2.9 . WILL PAGE DOCTOR Ada HERNANDEZ TO NOTIFY.
[2018-09-30 09:00] VITALS: BP 99/58
--- NOTE | 2018-09-30 09:44 | NUR ---
RECEIVED CALL FROM DR HERNANDEZ , ORDERS RECEIVED AND WILL IMPLEMENT FOLLOWED [facility] 4GRAMS PO X1 40 MEQ POTASSIUM IV ONCE OVER 4 HOURS LOPERIMIDE 4MG NOW AND 2MG AFTER FOR EVERY LOSE STOOL WITH MAX DOSE IN 24 HOURS OF 16 MG 50 MEQ EFFERVESCENT PO ONE NOW AND ONE REPEATED IN 4 HOURS. REPEAT BMP ONCE IV POTASSIUM IS DONE.
[2018-09-30] MEDS ORDERED: LOPERAMIDE HCL 2 MG CAP PO PRN (09:45)
[2018-09-30] MEDS ORDERED: POTASSIUM EFFERVESENT TAB 25 MEQ PO ONE (09:45)
[2018-09-30] MEDS ORDERED: CHOLESTYRAMINE 4 GM POWDER PO ONE (09:45)
[2018-09-30] MEDS ORDERED: POTASSIUM CHL 20MEQ/100ML 100 ML IV SCH ×2 (09:45→12:30)
[2018-09-30] MEDS ORDERED: LOPERAMIDE HCL 2 MG CAP PO ONE (09:45)
[2018-09-30] MEDS ORDERED: LOPE1TAB9 PO (10:59)
[2018-09-30] MEDS: PANTOPRAZOLE 40 MG TAB PO SCH (11:31)
[2018-09-30 13:07] VITALS: BP 109/65
[2018-09-30] MEDS: POTASSIUM EFFERVESENT TAB 25 MEQ PO ONE ×2 (14:39→15:48)
[2018-09-30 15:23] LABS: BUN/Creatinine Ratio 4.8; Calcium 7.8 mg/dL (8.5-10.1)
--- NOTE | 2018-09-30 15:55 | NUR ---
CALLED AND LEFT MESSAGE FOR DR Davion HERNANDEZ TO LET HIM KNOW NEW LAB VALUE POTASSIUM 4.0
[2018-09-30 16:59] VITALS: BP 98/61
--- NOTE | 2018-09-30 18:44 | NUR ---
Discharge instructions given as ordered. Encourage to follow up with PMD as instructed. All questions and concerns addressed. Patient verbalized understanding. Medication reconciliation form completed and copy given to patient. No Home medications held in Pharmacy and none to be returned to patient, and no needed vaccines given. IV removed with catheter intact, pressure dressing applied.. Telemetry unit returned to ICU. Patient taken to vehicle via wheelchair with all personal belongings, accompanied by staff and family member. No distress noted at time of departure.
== END 2018-09-30 18:40 | disposition home health service (06) | DRG 392 ==
LOC: EDBD 17:29 → ER 17:34 → TELE 22:11 → TELE-EAST 23:09
PROVIDERS: ADMIT Nurse Practitioner Family; ATTEND Internal Medicine
DX: K29.00 Acute gastritis without bleeding (principal); K52.1 Toxic gastroenteritis and colitis; T45.1X5A Adverse effect of antineoplastic and immunosuppressive drugs, initial encounter; F17.210 Nicotine dependence, cigarettes, uncomplicated; E87.6 Hypokalemia; E86.0 Dehydration; C43.9 Malignant melanoma of skin, unspecified; E78.5 Hyperlipidemia, unspecified; Z88.0 Allergy status to penicillin; Z79.899 Other long term (current) drug therapy; Y92.89 Other specified places as the place of occurrence of the external cause; Z82.5 Family history of asthma and other chronic lower respiratory diseases; Z82.49 Family history of ischemic heart disease and other diseases of the circulatory system; Z83.49 Family history of other endocrine, nutritional and metabolic diseases
CPT/HCPCS: 36415; 80048; 80053; 81001; 83690; 83735; 85025; 85048; 85610; 85730; 87045; 87081; 87493; 87899; 93005; 94761; 96361; 96365; 96375; 99291; G0378; J2001; J2405; J3480; J3490

== ENCOUNTER 2021-12-31 12:10 | Inpatient (IN) | payer BC, MEDICARE ==
[~2021-12-31] VITALS: Ht 188 cm; Wt 71.0 kg
[~2021-12-31 12:10] MED LIST changes: +CHL4PW PO; +DIPH2.5T73 PO; +FAMO20TA10 PO; +LOPE1TAB9 PO; -METO5TAB2 PO; +PANT40TA2 PO; +POTA-180 PO; -PRO10T PO; +PROC10TA2 PO
[2021-12-31] MEDS ORDERED: ACCU-CHEK COMFORT CURVE STRIP VI ONE (13:00)
[2021-12-31] MEDS ORDERED: SODIUM CHLORIDE 0.9% 1,000 ML IV ONE ×2 (13:45→16:15)
[2021-12-31 13:52] LABS: Urine Bacteria NONE SEEN /hpf (None Seen); Urine Blood Negative /uL (Negative); Urine Specific Gravity 1.017 (1.001-1.035); Urine WBC <1 /hpf (0 - 3)
[2021-12-31 13:55] LABS: Basophils # (auto) 0 10 ^3/uL (0-0.2); Basophils % (auto) 0.7 % (0.0-2.0); Eosinophils # (auto) 0.5 10 ^3/uL (0-0.8); Eosinophils % (auto) 8.3 % (0.0-7.0); Hematocrit 38.2 % (41.0-53.0); Hemoglobin 12.6 g/dL (13.5-17.5); Lymphocytes # (auto) 2.5 10 ^3/uL (0.4-5.4); Lymphocytes % (auto) 37.8 % (10.0-50.0); Mean Corpuscular Hemoglobin 28.7 pg (28.0-32.0); Mean Corpuscular Hgb Conc. 32.9 g/dL (32.0-36.0); Mean Corpuscular Volume 87.1 fL (80.0-100.0); Monocytes # (auto) 0.6 10 ^3/uL (0-1.3); Monocytes % (auto) 9.7 % (0.0-12.0); Neutrophils # (auto) 2.9 10 ^3/uL (1.6-8.6); Neutrophils % (auto) 43.5 % (37.0-80.0); Nucleated Red Blood Cells % 0.2 %; Red Blood Cells 4.39 10^6/uL (4.5-5.90); Red Cell Distribution Width 13.5 % (11.8-14.3); White Blood Cell 6.6 10^3/uL (4.4-10.8)
[2021-12-31 14:14] LABS: Albumin 2.9 g/dL (3.4-5.0); Calcium 7.7 mg/dL (8.5-10.1); Potassium 3.5 mmol/L (3.5-5.1)
[2021-12-31 14:17] LABS: BUN/Creatinine Ratio 11.8; Bilirubin, Total 0.8 mg/dL (0.2-1.0); Total Protein 5.9 g/dL (6.4-8.2)
[2021-12-31] MEDS ORDERED: FOLIC ACID 1 MG, MULTIPLE VITAMIN 10 ML, MAGNESIUM SULF SDV 50% 8 MEQ, THIAMINE INJ 100... INJ ONE ×5 (16:15)
[2021-12-31] MEDS ORDERED: MORPHINE SULFATE INJ 2 MG/ml SYRG IV PRN (17:15)
[2021-12-31] MEDS ORDERED: NITROGLYCERIN 0.4 MG SL TAB SL PRN (17:15)
[2021-12-31] MEDS: Ensure HIGH Protein Chocolate 8oz Bottle PO SCH (18:54)
[2021-12-31 22:00] VITALS: BP 83/52
[2021-12-31 22:15] VITALS: BP 87/68
[2021-12-31 23:00] VITALS: BP_SYST 90; BP_SYST 95; BP_DIAS 54; BP_DIAS 68
[2021-12-31 23:15] VITALS: BP 87/54
[2021-12-31 23:30] VITALS: BP 88/55
[2021-12-31 23:45] VITALS: BP 90/53
[2022-01-01] VITALS (77 sets, daily range): BP systolic 69–148; BP diastolic 30–95
[2022-01-01] MEDS: Ensure HIGH Protein Chocolate 8oz Bottle PO SCH ×3 (08:00→18:00)
[2022-01-01] MEDS ORDERED: SODIUM CHLORIDE 0.9% 1,000 ML IV ONE (10:45)
[2022-01-01] MEDS ORDERED: NOREPINEPHRINE 8 MG/250ML KIT 250 ML IV ONE (11:56)
[2022-01-01] MEDS: NOREPINEPHRINE 8 MG/250ML KIT 250 ML IV SCH (12:00)
[2022-01-01] MEDS ORDERED: LEVO50TA7 PO (13:13)
[2022-01-01] MEDS ORDERED: CHOL100046 PO (13:13)
[2022-01-01] MEDS ORDERED: CHOL20007 PO (13:13)
[2022-01-01] MEDS ORDERED: SUMA100T15 PO (13:15)
[2022-01-01] MEDS: ACETAMINOPHEN 325 MG TAB PO PRN (14:13)
[2022-01-01 16:26] LABS: INR 1.19 (0.9-1.15)
[2022-01-02] VITALS (90 sets, daily range): BP systolic 74–125; BP diastolic 33–80
[2022-01-02] MEDS: levoFLOXacin 750MG 150 ML IV SCH ×2 (00:27→16:30)
[2022-01-02] MEDS: NOREPINEPHRINE 8 MG/250ML KIT 250 ML IV SCH (02:00)
[2022-01-02 06:54] LABS: Basophils # (auto) 0 10 ^3/uL (0-0.2); Basophils % (auto) 0.7 % (0.0-2.0); Eosinophils # (auto) 0.5 10 ^3/uL (0-0.8); Eosinophils % (auto) 8.2 % (0.0-7.0); Hematocrit 36.9 % (41.0-53.0); Hemoglobin 12.3 g/dL (13.5-17.5); Lymphocytes # (auto) 2.4 10 ^3/uL (0.4-5.4); Lymphocytes % (auto) 39.5 % (10.0-50.0); Mean Corpuscular Hgb Conc. 33.3 g/dL (32.0-36.0); Mean Corpuscular Volume 87.3 fL (80.0-100.0); Monocytes # (auto) 0.7 10 ^3/uL (0-1.3); Monocytes % (auto) 12.5 % (0.0-12.0); Neutrophils # (auto) 2.3 10 ^3/uL (1.6-8.6); Neutrophils % (auto) 39.1 % (37.0-80.0); Nucleated Red Blood Cells % 0.1 %; Red Blood Cells 4.23 10^6/uL (4.5-5.90); Red Cell Distribution Width 13.6 % (11.8-14.3); White Blood Cell 5.9 10^3/uL (4.4-10.8)
[2022-01-02 07:11] LABS: BUN/Creatinine Ratio 5.3; Calcium 7.6 mg/dL (8.5-10.1)
[2022-01-02] MEDS: ACETAMINOPHEN 325 MG TAB PO PRN (08:32)
[2022-01-02] MEDS: Ensure HIGH Protein Chocolate 8oz Bottle PO SCH ×3 (08:34→17:51)
[2022-01-03] VITALS (94 sets, daily range): BP systolic 73–111; BP diastolic 35–69
[2022-01-03 05:01] LABS: Basophils # (auto) 0.1 10 ^3/uL (0-0.2); Basophils % (auto) 0.9 % (0.0-2.0); Eosinophils # (auto) 0.8 10 ^3/uL (0-0.8); Eosinophils % (auto) 10.5 % (0.0-7.0); Hematocrit 37.1 % (41.0-53.0); Hemoglobin 12.3 g/dL (13.5-17.5); Lymphocytes # (auto) 2.6 10 ^3/uL (0.4-5.4); Lymphocytes % (auto) 35.7 % (10.0-50.0); Mean Corpuscular Hemoglobin 29.1 pg (28.0-32.0); Mean Corpuscular Hgb Conc. 33.1 g/dL (32.0-36.0); Monocytes # (auto) 0.9 10 ^3/uL (0-1.3); Monocytes % (auto) 12.3 % (0.0-12.0); Neutrophils % (auto) 40.6 % (37.0-80.0); Nucleated Red Blood Cells % 0.1 %; Red Blood Cells 4.21 10^6/uL (4.5-5.90); Red Cell Distribution Width 13.5 % (11.8-14.3); White Blood Cell 7.3 10^3/uL (4.4-10.8)
[2022-01-03 05:27] LABS: BUN/Creatinine Ratio 5.6; Calcium 7.9 mg/dL (8.5-10.1); Potassium 3.5 mmol/L (3.5-5.1)
[2022-01-03] MEDS: Ensure HIGH Protein Chocolate 8oz Bottle PO SCH ×3 (08:19→18:36)
[2022-01-03] MEDS ORDERED: SODIUM CHLORIDE 0.9% 500 ML IV ONE (10:15)
[2022-01-03] MEDS ORDERED: VANCOMYCIN PER PHARMACY 0 MG IV SCH (10:15)
[2022-01-03] MEDS: VANCOMYCIN 1GM/250ML 250 ML IV SCH ×2 (11:34→20:42)
[2022-01-03] MEDS: NOREPINEPHRINE 8 MG/250ML KIT 250 ML IV SCH (11:36)
[2022-01-03] MEDS: ACETAMINOPHEN 325 MG TAB PO PRN (11:42)
[2022-01-03] MEDS: levoFLOXacin 750MG 150 ML IV SCH (17:47)
[2022-01-04] VITALS (95 sets, daily range): BP systolic 82–126; BP diastolic 51–73
[2022-01-04 03:15] LABS: Basophils # (auto) 0.1 10 ^3/uL (0-0.2); Basophils % (auto) 0.8 % (0.0-2.0); Eosinophils # (auto) 0.9 10 ^3/uL (0-0.8); Eosinophils % (auto) 12.8 % (0.0-7.0); Hematocrit 36.5 % (41.0-53.0); Hemoglobin 12.1 g/dL (13.5-17.5); Lymphocytes # (auto) 2.7 10 ^3/uL (0.4-5.4); Mean Corpuscular Hemoglobin 28.6 pg (28.0-32.0); Mean Corpuscular Hgb Conc. 33.2 g/dL (32.0-36.0); Mean Corpuscular Volume 86.2 fL (80.0-100.0); Monocytes # (auto) 0.8 10 ^3/uL (0-1.3); Monocytes % (auto) 12.4 % (0.0-12.0); Neutrophils # (auto) 2.3 10 ^3/uL (1.6-8.6); Nucleated Red Blood Cells % 0.1 %; Red Blood Cells 4.23 10^6/uL (4.5-5.90); Red Cell Distribution Width 13.7 % (11.8-14.3); White Blood Cell 6.8 10^3/uL (4.4-10.8)
[2022-01-04 03:35] LABS: BUN/Creatinine Ratio 5.1; Calcium 7.8 mg/dL (8.5-10.1); Potassium 3.9 mmol/L (3.5-5.1)
[2022-01-04] MEDS: VANCOMYCIN 1GM/250ML 250 ML IV SCH ×3 (04:29→20:35)
[2022-01-04] MEDS: ACETAMINOPHEN 325 MG TAB PO PRN (09:00)
[2022-01-04] MEDS: Ensure HIGH Protein Chocolate 8oz Bottle PO SCH ×3 (11:48→18:35)
[2022-01-04] MEDS: NOREPINEPHRINE 8 MG/250ML KIT 250 ML IV SCH (12:19)
[2022-01-04] MEDS ORDERED: LEVOTHYROXINE SODIUM 50 MCG TAB PO ONE (12:45)
[2022-01-04] MEDS: levoFLOXacin 750MG 150 ML IV SCH (15:30)
[2022-01-05] VITALS (95 sets, daily range): BP systolic 83–110; BP diastolic 50–73
[2022-01-05] MEDS: VANCOMYCIN 1GM/250ML 250 ML IV SCH ×2 (04:05→18:12)
[2022-01-05] MEDS: LEVOTHYROXINE SODIUM 50 MCG TAB PO SCH (06:03)
[2022-01-05 07:53] LABS: Basophils # (auto) 0 10 ^3/uL (0-0.2); Basophils % (auto) 0.8 % (0.0-2.0); Eosinophils # (auto) 0.7 10 ^3/uL (0-0.8); Eosinophils % (auto) 11.4 % (0.0-7.0); Lymphocytes # (auto) 2.6 10 ^3/uL (0.4-5.4); Lymphocytes % (auto) 42.7 % (10.0-50.0); Mean Corpuscular Hemoglobin 29.1 pg (28.0-32.0); Mean Corpuscular Hgb Conc. 33.5 g/dL (32.0-36.0); Monocytes # (auto) 0.7 10 ^3/uL (0-1.3); Monocytes % (auto) 10.9 % (0.0-12.0); Neutrophils # (auto) 2.1 10 ^3/uL (1.6-8.6); Neutrophils % (auto) 34.2 % (37.0-80.0); Nucleated Red Blood Cells % 0.2 %; Red Blood Cells 4.14 10^6/uL (4.5-5.90); Red Cell Distribution Width 13.6 % (11.8-14.3); White Blood Cell 6.2 10^3/uL (4.4-10.8)
[2022-01-05] MEDS: Ensure HIGH Protein Chocolate 8oz Bottle PO SCH ×3 (08:00→17:50)
[2022-01-05 08:05] LABS: Calcium 7.8 mg/dL (8.5-10.1); Potassium 4.4 mmol/L (3.5-5.1)
[2022-01-05 08:12] LABS: Albumin 2.6 g/dL (3.4-5.0); BUN/Creatinine Ratio 4.5; Bilirubin, Total 0.5 mg/dL (0.2-1.0)
[2022-01-05] MEDS: NOREPINEPHRINE 8 MG/250ML KIT 250 ML IV SCH (12:12)
[2022-01-05] MEDS: levoFLOXacin 750MG 150 ML IV SCH (16:27)
[2022-01-05] MEDS: ONDANSETRON HCL 4 MG/2 ML VIAL IV PRN (18:55)
[2022-01-06] VITALS (94 sets, daily range): BP systolic 80–106; BP diastolic 39–69
[2022-01-06] MEDS: LEVOTHYROXINE SODIUM 50 MCG TAB PO SCH (06:45)
[2022-01-06] MEDS: VANCOMYCIN 1GM/250ML 250 ML IV SCH ×2 (06:45→17:02)
[2022-01-06] MEDS: Ensure HIGH Protein Chocolate 8oz Bottle PO SCH ×3 (07:53→17:02)
[2022-01-06] MEDS: NOREPINEPHRINE 8 MG/250ML KIT 250 ML IV SCH (09:04)
[2022-01-06] MEDS ORDERED: MIDODRINE HCL 10 MG TAB PO ONE (10:30)
[2022-01-06] MEDS ORDERED: SODIUM CHLORIDE 0.9% 500 ML IV ONE (10:30)
[2022-01-06] MEDS: levoFLOXacin 750MG 150 ML IV SCH (14:51)
[2022-01-06] MEDS: MIDODRINE HCL 10 MG TAB PO SCH (17:03)
[2022-01-06] MEDS: ONDANSETRON HCL 4 MG/2 ML VIAL IV PRN (18:39)
[2022-01-07] VITALS (87 sets, daily range): BP systolic 78–118; BP diastolic 43–69
[2022-01-07] MEDS: MIDODRINE HCL 10 MG TAB PO SCH ×3 (02:10→17:01)
[2022-01-07 04:58] LABS: Basophils # (auto) 0.1 10 ^3/uL (0-0.2); Eosinophils # (auto) 0.7 10 ^3/uL (0-0.8); Hematocrit 36.1 % (41.0-53.0); Hemoglobin 12.1 g/dL (13.5-17.5); Lymphocytes # (auto) 2.5 10 ^3/uL (0.4-5.4); Mean Corpuscular Hemoglobin 29.2 pg (28.0-32.0); Mean Corpuscular Hgb Conc. 33.5 g/dL (32.0-36.0); Mean Corpuscular Volume 87.3 fL (80.0-100.0); Monocytes # (auto) 0.7 10 ^3/uL (0-1.3); Monocytes % (auto) 10.8 % (0.0-12.0); Neutrophils # (auto) 2.6 10 ^3/uL (1.6-8.6); Neutrophils % (auto) 39.2 % (37.0-80.0); Nucleated Red Blood Cells % 0.1 %; Red Blood Cells 4.14 10^6/uL (4.5-5.90); Red Cell Distribution Width 14.2 % (11.8-14.3); White Blood Cell 6.7 10^3/uL (4.4-10.8)
[2022-01-07 05:12] LABS: BUN/Creatinine Ratio 9.1; Potassium 4.2 mmol/L (3.5-5.1)
[2022-01-07] MEDS: VANCOMYCIN 1GM/250ML 250 ML IV SCH ×2 (06:00→17:01)
[2022-01-07] MEDS: LEVOTHYROXINE SODIUM 50 MCG TAB PO SCH (07:00)
[2022-01-07] MEDS: Ensure HIGH Protein Chocolate 8oz Bottle PO SCH ×3 (07:15→18:05)
[2022-01-07] MEDS: NOREPINEPHRINE 8 MG/250ML KIT 250 ML IV SCH (08:16)
[2022-01-07] MEDS: levoFLOXacin 750MG 150 ML IV SCH (14:51)
[2022-01-07] MEDS ORDERED: SODIUM CHLORIDE 0.9% 500 ML IV ONE (20:00)
[2022-01-07] MEDS: ACETAMINOPHEN 325 MG TAB PO PRN (20:35)
[2022-01-08] VITALS (93 sets, daily range): BP systolic 83–120; BP diastolic 41–71
[2022-01-08] MEDS: MIDODRINE HCL 10 MG TAB PO SCH ×3 (02:10→21:37)
[2022-01-08] MEDS: NOREPINEPHRINE 8 MG/250ML KIT 250 ML IV SCH ×2 (03:28→14:28)
[2022-01-08 04:35] LABS: Basophils # (auto) 0.1 10 ^3/uL (0-0.2); Basophils % (auto) 1.1 % (0.0-2.0); Eosinophils # (auto) 0.8 10 ^3/uL (0-0.8); Eosinophils % (auto) 10.8 % (0.0-7.0); Hemoglobin 12.2 g/dL (13.5-17.5); Lymphocytes # (auto) 2.9 10 ^3/uL (0.4-5.4); Lymphocytes % (auto) 37.5 % (10.0-50.0); Mean Corpuscular Hemoglobin 28.9 pg (28.0-32.0); Mean Corpuscular Volume 87.5 fL (80.0-100.0); Monocytes # (auto) 0.8 10 ^3/uL (0-1.3); Monocytes % (auto) 11.1 % (0.0-12.0); Neutrophils % (auto) 39.5 % (37.0-80.0); Nucleated Red Blood Cells % 0.2 %; Red Blood Cells 4.23 10^6/uL (4.5-5.90); Red Cell Distribution Width 13.9 % (11.8-14.3); White Blood Cell 7.6 10^3/uL (4.4-10.8)
[2022-01-08 04:50] LABS: BUN/Creatinine Ratio 7.8; Calcium 7.7 mg/dL (8.5-10.1); Potassium 3.9 mmol/L (3.5-5.1)
[2022-01-08] MEDS: LEVOTHYROXINE SODIUM 50 MCG TAB PO SCH (06:46)
[2022-01-08] MEDS: Ensure HIGH Protein Chocolate 8oz Bottle PO SCH ×3 (08:00→18:00)
[2022-01-08] MEDS ORDERED: SODIUM CHLORIDE 0.9% 1,000 ML IV ONE ×2 (11:00→11:30)
[2022-01-08] MEDS ORDERED: MEGESTROL ACET 400MG/10ML ORAL SUSP GT ONE (12:30)
[2022-01-08] MEDS ORDERED: MEGESTROL ACET 400MG/10ML ORAL SUSP PO ONE (12:45)
[2022-01-09] VITALS (80 sets, daily range): BP systolic 75–118; BP diastolic 39–70
[2022-01-09 04:32] LABS: Basophils # (auto) 0.1 10 ^3/uL (0-0.2); Basophils % (auto) 1.1 % (0.0-2.0); Eosinophils # (auto) 0.7 10 ^3/uL (0-0.8); Eosinophils % (auto) 9.7 % (0.0-7.0); Hematocrit 36.7 % (41.0-53.0); Hemoglobin 12.4 g/dL (13.5-17.5); Lymphocytes # (auto) 3.6 10 ^3/uL (0.4-5.4); Lymphocytes % (auto) 48.4 % (10.0-50.0); Mean Corpuscular Hemoglobin 29.2 pg (28.0-32.0); Mean Corpuscular Hgb Conc. 33.7 g/dL (32.0-36.0); Mean Corpuscular Volume 86.6 fL (80.0-100.0); Monocytes # (auto) 0.9 10 ^3/uL (0-1.3); Monocytes % (auto) 12.2 % (0.0-12.0); Neutrophils # (auto) 2.1 10 ^3/uL (1.6-8.6); Neutrophils % (auto) 28.6 % (37.0-80.0); Nucleated Red Blood Cells % 0.1 %; Red Blood Cells 4.24 10^6/uL (4.5-5.90); Red Cell Distribution Width 13.9 % (11.8-14.3); White Blood Cell 7.4 10^3/uL (4.4-10.8)
[2022-01-09 04:48] LABS: Calcium 8.1 mg/dL (8.5-10.1)
[2022-01-09 04:51] LABS: BUN/Creatinine Ratio 8.3
[2022-01-09] MEDS: MIDODRINE HCL 10 MG TAB PO SCH ×3 (05:54→21:38)
[2022-01-09] MEDS: LEVOTHYROXINE SODIUM 50 MCG TAB PO SCH (06:46)
[2022-01-09] MEDS: Ensure HIGH Protein Chocolate 8oz Bottle PO SCH ×3 (08:00→18:00)
[2022-01-09] MEDS: MEGESTROL ACET 400MG/10ML ORAL SUSP PO SCH (09:39)
[2022-01-09] MEDS: NOREPINEPHRINE 8 MG/250ML KIT 250 ML IV SCH (14:22)
[2022-01-10] VITALS (78 sets, daily range): BP systolic 68–115; BP diastolic 34–69
[2022-01-10 04:41] LABS: Basophils # (auto) 0.1 10 ^3/uL (0-0.2); Basophils % (auto) 1.2 % (0.0-2.0); Eosinophils # (auto) 0.5 10 ^3/uL (0-0.8); Eosinophils % (auto) 5.3 % (0.0-7.0); Hematocrit 35.5 % (41.0-53.0); Hemoglobin 11.9 g/dL (13.5-17.5); Lymphocytes # (auto) 3.2 10 ^3/uL (0.4-5.4); Lymphocytes % (auto) 36.1 % (10.0-50.0); Mean Corpuscular Hemoglobin 28.9 pg (28.0-32.0); Mean Corpuscular Hgb Conc. 33.4 g/dL (32.0-36.0); Mean Corpuscular Volume 86.6 fL (80.0-100.0); Monocytes % (auto) 11.5 % (0.0-12.0); Neutrophils # (auto) 4.1 10 ^3/uL (1.6-8.6); Neutrophils % (auto) 45.9 % (37.0-80.0); Red Cell Distribution Width 13.9 % (11.8-14.3)
[2022-01-10 04:45] LABS: Calcium 8.1 mg/dL (8.5-10.1); Potassium 4.6 mmol/L (3.5-5.1)
[2022-01-10 04:48] LABS: BUN/Creatinine Ratio 13.6
[2022-01-10] MEDS: MIDODRINE HCL 10 MG TAB PO SCH ×3 (05:32→18:30)
[2022-01-10] MEDS: LEVOTHYROXINE SODIUM 50 MCG TAB PO SCH (07:02)
[2022-01-10] MEDS: Ensure HIGH Protein Chocolate 8oz Bottle PO SCH ×3 (08:00→19:26)
[2022-01-10] MEDS: MEGESTROL ACET 400MG/10ML ORAL SUSP PO SCH (09:46)
[2022-01-10] MEDS: CHOLESTYRAMINE 4 GM POWDER PO SCH (23:14)
[2022-01-11] VITALS (41 sets, daily range): BP systolic 73–105; BP diastolic 28–58
[2022-01-11 03:46] LABS: Basophils # (auto) 0.1 10 ^3/uL (0-0.2); Basophils % (auto) 1.2 % (0.0-2.0); Eosinophils # (auto) 0.5 10 ^3/uL (0-0.8); Eosinophils % (auto) 5.7 % (0.0-7.0); Hematocrit 33.3 % (41.0-53.0); Hemoglobin 11.3 g/dL (13.5-17.5); Lymphocytes # (auto) 3.2 10 ^3/uL (0.4-5.4); Lymphocytes % (auto) 38.9 % (10.0-50.0); Mean Corpuscular Hemoglobin 29.2 pg (28.0-32.0); Mean Corpuscular Hgb Conc. 33.9 g/dL (32.0-36.0); Mean Corpuscular Volume 86.2 fL (80.0-100.0); Monocytes # (auto) 0.7 10 ^3/uL (0-1.3); Monocytes % (auto) 8.7 % (0.0-12.0); Neutrophils # (auto) 3.7 10 ^3/uL (1.6-8.6); Neutrophils % (auto) 45.5 % (37.0-80.0); Red Blood Cells 3.86 10^6/uL (4.5-5.90); Red Cell Distribution Width 14.5 % (11.8-14.3); White Blood Cell 8.1 10^3/uL (4.4-10.8)
[2022-01-11 04:01] LABS: BUN/Creatinine Ratio 16.2; Calcium 8.4 mg/dL (8.5-10.1); Potassium 4.1 mmol/L (3.5-5.1)
[2022-01-11] MEDS: LEVOTHYROXINE SODIUM 50 MCG TAB PO SCH (06:04)
[2022-01-11] MEDS: MIDODRINE HCL 10 MG TAB PO SCH ×3 (06:04→17:19)
[2022-01-11] MEDS: Ensure HIGH Protein Chocolate 8oz Bottle PO SCH ×3 (08:00→17:20)
[2022-01-11] MEDS: CHOLESTYRAMINE 4 GM POWDER PO SCH ×2 (11:14→21:59)
[2022-01-11] MEDS: MEGESTROL ACET 400MG/10ML ORAL SUSP PO SCH (11:15)
[2022-01-11] MEDS ORDERED: ENOXAPARIN SOD 30 MG/0.3 ML SYRINGE SC ONE (13:45)
[2022-01-11] MEDS ORDERED: FAMOTIDINE 20 MG TAB PO ONE (13:45)
[2022-01-11] MEDS: NOREPINEPHRINE 8 MG/250ML KIT 250 ML IV SCH (19:00)
[2022-01-12] VITALS (25 sets, daily range): BP systolic 75–108; BP diastolic 34–65
[2022-01-12 04:31] LABS: Basophils # (auto) 0.1 10 ^3/uL (0-0.2); Basophils % (auto) 0.9 % (0.0-2.0); Eosinophils # (auto) 0.3 10 ^3/uL (0-0.8); Hematocrit 33.6 % (41.0-53.0); Hemoglobin 11.4 g/dL (13.5-17.5); Lymphocytes # (auto) 3.2 10 ^3/uL (0.4-5.4); Mean Corpuscular Hemoglobin 29.4 pg (28.0-32.0); Mean Corpuscular Hgb Conc. 33.8 g/dL (32.0-36.0); Mean Corpuscular Volume 86.9 fL (80.0-100.0); Monocytes # (auto) 0.7 10 ^3/uL (0-1.3); Monocytes % (auto) 8.8 % (0.0-12.0); Neutrophils # (auto) 3.7 10 ^3/uL (1.6-8.6); Neutrophils % (auto) 46.3 % (37.0-80.0); Red Blood Cells 3.87 10^6/uL (4.5-5.90); Red Cell Distribution Width 14.2 % (11.8-14.3); White Blood Cell 8.1 10^3/uL (4.4-10.8)
[2022-01-12 04:47] LABS: Calcium 8.2 mg/dL (8.5-10.1); Potassium 4.3 mmol/L (3.5-5.1)
[2022-01-12 04:49] LABS: BUN/Creatinine Ratio 21.2
[2022-01-12] MEDS: LEVOTHYROXINE SODIUM 50 MCG TAB PO SCH (06:49)
[2022-01-12] MEDS: MIDODRINE HCL 10 MG TAB PO SCH ×3 (06:50→18:03)
[2022-01-12] MEDS: Ensure HIGH Protein Chocolate 8oz Bottle PO SCH ×3 (08:00→19:09)
[2022-01-12] MEDS: MEGESTROL ACET 400MG/10ML ORAL SUSP PO SCH (09:48)
[2022-01-12] MEDS: FAMOTIDINE 20 MG TAB PO SCH (09:49)
[2022-01-12] MEDS: ENOXAPARIN SOD 30 MG/0.3 ML SYRINGE SC SCH (09:49)
[2022-01-12] MEDS: CHOLESTYRAMINE 4 GM POWDER PO SCH ×2 (11:03→23:01)
[2022-01-12] MEDS: NOREPINEPHRINE 8 MG/250ML KIT 250 ML IV SCH (12:00)
[2022-01-13] VITALS (21 sets, daily range): BP systolic 88–100; BP diastolic 50–63
[2022-01-13] MEDS: MIDODRINE HCL 10 MG TAB PO SCH ×3 (06:06→22:07)
[2022-01-13] MEDS: LEVOTHYROXINE SODIUM 50 MCG TAB PO SCH (07:03)
[2022-01-13] MEDS: Ensure HIGH Protein Chocolate 8oz Bottle PO SCH ×3 (08:00→17:52)
[2022-01-13] MEDS: MEGESTROL ACET 400MG/10ML ORAL SUSP PO SCH (10:00)
[2022-01-13] MEDS: ENOXAPARIN SOD 30 MG/0.3 ML SYRINGE SC SCH (10:00)
[2022-01-13] MEDS: FAMOTIDINE 20 MG TAB PO SCH (10:00)
[2022-01-13] MEDS ORDERED: MID10T PO (10:49)
[2022-01-13] MEDS: CHOLESTYRAMINE 4 GM POWDER PO SCH ×2 (11:20→23:17)
[2022-01-13] MEDS: NOREPINEPHRINE 8 MG/250ML KIT 250 ML IV SCH (12:00)
[2022-01-13] MEDS ORDERED: MIDODRINE HCL 10 MG TAB PO SCH (18:00)
[2022-01-14] VITALS (15 sets, daily range): BP systolic 85–121; BP diastolic 42–65
[2022-01-14] MEDS: MIDODRINE HCL 10 MG TAB PO SCH ×2 (05:44→14:25)
[2022-01-14] MEDS: LEVOTHYROXINE SODIUM 50 MCG TAB PO SCH (07:09)
[2022-01-14] MEDS: Ensure HIGH Protein Chocolate 8oz Bottle PO SCH ×2 (09:53→12:06)
[2022-01-14] MEDS: CHOLESTYRAMINE 4 GM POWDER PO SCH (10:44)
[2022-01-14] MEDS: MEGESTROL ACET 400MG/10ML ORAL SUSP PO SCH (10:45)
[2022-01-14] MEDS: FAMOTIDINE 20 MG TAB PO SCH (10:45)
[2022-01-14] MEDS: ENOXAPARIN SOD 30 MG/0.3 ML SYRINGE SC SCH (10:46)
[2022-01-14] MEDS: NOREPINEPHRINE 8 MG/250ML KIT 250 ML IV SCH (10:59)
[2022-01-14] MEDS ORDERED: MEGE1SUS5 PO (12:09)
== END 2022-01-14 15:20 | disposition home health service (06) | DRG 872 ==
LOC: ER 12:10 → EDBD 12:10 → TELE 17:17 → DOU IN ICU 22:20 → ICU CENTRL 01-02 06:17 → ICU WEST 01-07 17:39
PROVIDERS: ADMIT Nurse Practitioner Family; ATTEND Internal Medicine Pulmonary Disease
PROC: 05H933Z Insertion of Infusion Device into Right Brachial Vein, Percutaneous Approach (ICD-10-PCS; principal; 2022-01-01)
PROC: B54MZZA Ultrasonography of Right Upper Extremity Veins, Guidance (ICD-10-PCS; 2022-01-01)
DX: A41.9 Sepsis, unspecified organism (principal); C79.9 Secondary malignant neoplasm of unspecified site; E44.0 Moderate protein-calorie malnutrition; Z20.822 Contact with and (suspected) exposure to COVID-19; E03.9 Hypothyroidism, unspecified; E86.0 Dehydration; F17.210 Nicotine dependence, cigarettes, uncomplicated; I10 Essential (primary) hypertension; E78.5 Hyperlipidemia, unspecified; B96.81 Helicobacter pylori [H. pylori] as the cause of diseases classified elsewhere; R62.7 Adult failure to thrive; Z68.21 Body mass index [BMI] 21.0-21.9, adult; Z79.899 Other long term (current) drug therapy; Z85.820 Personal history of malignant melanoma of skin; Z86.19 Personal history of other infectious and parasitic diseases; Z88.0 Allergy status to penicillin; Z88.8 Allergy status to other drugs, medicaments and biological substances; Z89.011 Acquired absence of right thumb; T45.1X5A Adverse effect of antineoplastic and immunosuppressive drugs, initial encounter
CPT/HCPCS: 36415; 71045; 71250; 74176; 76705; 80048; 80053; 80202; 81001; 82533; 82565; 82962; 83605; 83735; 83880; 84436; 84439; 84443; 84484; 85025; 85610; 87040; 87070; 87077; 87081; 87186; 87205; 93005; 93306; 96361; 96365; 97110; 97116; 97163; 97530; 99291; G0378; J1956; J2405

== ENCOUNTER 2022-02-19 09:27 | Emergency (ER) | payer MEDICARE ==
[~2022-02-19] VITALS: Ht 188 cm; Wt 80.9 kg
[~2022-02-19 09:27] MED LIST changes: +CHOL100046 PO; +LEVO50TA7 PO; +MEGE1SUS5 PO; +MID10T PO; +SUMA100T15 PO
[2022-02-19 09:39] VITALS: BP 141/76
[2022-02-19] MEDS ORDERED: CEPH-510 PO (11:01)
== END 2022-02-19 11:06 | disposition home or self-care (01) ==
LOC: ER 09:27
DX: S71.112A Laceration without foreign body, left thigh, initial encounter (principal); R22.42 Localized swelling, mass and lump, left lower limb; E78.5 Hyperlipidemia, unspecified; E03.9 Hypothyroidism, unspecified; F17.210 Nicotine dependence, cigarettes, uncomplicated; Z79.899 Other long term (current) drug therapy; Z88.0 Allergy status to penicillin; Z88.1 Allergy status to other antibiotic agents; X58.XXXA Exposure to other specified factors, initial encounter; Y93.89 Activity, other specified; Y92.89 Other specified places as the place of occurrence of the external cause; Y99.8 Other external cause status
CPT/HCPCS: 12001; 99283; J2001

== ENCOUNTER 2024-02-28 13:10 | Emergency (ER) | payer OTHER ==
[~2024-02-28] VITALS: Ht 188 cm; Wt 92.5 kg
[~2024-02-28 13:10] MED LIST changes: +ACET-1304 PO; +BACDST PO; +CEPH-510 PO; +METR-344 PO; -PROC10TA2 PO; +PROC10TA6 PO; +SIME80CH49 PO; +SIMV5TAB14 PO; -SIMV5TAB50 PO
--- NOTE | 2024-02-28 13:35 | ED.PDOC ---
General HPI Comments 48y M who presents to the ED for chief complaint of urinary issues. Pt states he has been having trouble using the restroom with voiding his bladder for the past 2 days. Pt states he has been having associated pain , rating the pain 10/10, intermittent, with no associated exacerbating or relieving factors. Pt has associated hemorrhoids and states he has been having exacerbation of pain due to his hemorrhoids. Pt states he was on antibiotics for infection and states he was on clindamycin and had recent episode of colitis. Pt states otherwise he has history of BPH, melanoma, hyperlipidemia, and hypothyroidism. Pt otherwise denies any other symptoms at this time. Pt otherwise denies nausea, vomiting, di arrhea, fever, cough, chills, hematuria, or hematemesis. Chief Complaint: Urinary Time Seen by MD: 13:29 Primary Care Provider: LOPEZ Ferguson Reviewed notes: Medications, Allergies Allergies: Coded Allergies: Amoxicillin (Verified Allergy, Severe, 12/31/21) Ciprofloxacin (Verified Allergy, Severe, projectile vomiting, weakness, shaking, 01/16/24) Penicillins (Verified Allergy, Unknown, 12/31/21) Home Meds Active Scripts Hydrocortisone Acetate (Anusol-Hc) 25 Mg Sup, 1 SUPP DE BID, #14 SUPP Prov:AMARILIS KINCAID MD 02/28/24 Tamsulosin Hcl (Flomax) 0.4 Mg Cap, 1 CAP PO DAILY, #30 CAP 11 Refills Prov:AMARILIS KINCAID MD 02/28/24 Sulfamethoxazole W/Trimethopri (Bactrim Ds Tablet) 1 Tab Tb, 1 TAB PO BID for 7 Days, #14 TAB Prov:LEONEL TERRY MD 01/16/24 Acetaminophen (Tylenol Extra Strength) 500 Mg Tab, 1000 MG PO Q6HP PRN, #30 TAB prn fever or pain Prov:MANUEL GOMEZ MD 01/16/24 Simethicone (Simethicone) 80 Mg Chw, 2-4 TAB PO Q6HP PRN, #30 TAB.CHEW prn gas Prov:MANUEL GOMEZ MD 01/16/24 Metronidazole (Flagyl) 500 Mg Tab, 1 TAB PO TID for 10 Days, #30 TAB Prov:MANUEL GOMEZ MD 01/16/24 Cephalexin ( Keflex 500) 500 Mg Cap, 1 CAP PO QID PRN, #40 CAP Prov:FREDDY PALOMARES 02/19/22 Megestrol Acetate (Appetite) (Megestrol Acetate) 625 Mg/5 Ml Pilar, 625 MG PO DAILY PRN for 30 Days, #30 EA Prov:MALATHI LEBRON MD 01/14/22 Midodrine HCl (Midodrine HCl) 10 Mg Tab, 10 MG PO TID@0600,1200,1800 for 30 Days, #90 TAB Prov:MALATHI LEBRON MD 01/13/22 Loperamide HCl (Loperamide HCl) 2 Mg Tab, 2 MG PO Q2HPRN PRN, #40 TAB Prov:TAQUERIA HERNANDEZ MD 09/30/18 Potassium Chloride (Potassium Chloride ER) 20 Meq Tab, 20 MEQ PO DAILY, #3 Prov:TAQUERIA HERNANDEZ MD 09/29/18 Reported Medications Sumatriptan Succinate (Sumatriptan Succinate) 100 Mg Tab, 100 MG PO PRN, MG 01/01/22 Cholecalciferol (KP VITAMIN D) 1,000 Unit Cap, 5000 UNIT PO DAILY, CAP 01/01/22 Levothyroxine Sodium (Levothyroxine Sodium) 50 Mcg Tab, 50 MCG PO QAM for 30 Days, MCG 01/01/22 Cholestyramine (QUESTRAN POWDER) 4 Gm Pw, 4 GM PO BID 09/28/18 Diphenoxylate W/ Atropine (Lomotil) 2.5 Mg Tab, 2 TAB PO TID PRN for FOR DIARRHEA, #30 TAB 09/28/18 Pantoprazole Sodium Sesquihydr (Protonix) 40 Mg Tab, 40 MG PO DAILY, #30 TAB 09/28/18 Famotidine (PEPCID TABLET) 20 Mg Tb, 1 TAB PO HS, #60 TAB 5 Refills 09/28/18 Simvastatin (Simvastatin) 5 Mg Tab, 5 MG PO HS, TAB 08/17/18 Prochlorperazine Maleate (Compazine) 10 Mg Tb, 0.5 TAB PO TID, #30 TAB 3 Refills 08/17/18 Information Source: Patient Mode of Arrival: Ambulatory Brought in by: self Severity: Moderate Inability to void: Moderate Timing: Days Duration: Since onset Has not urinated for: Hours Prehospital treatment: None Onset: Spontaneous Symptoms: Inability to void History of: BPH Location: Suprapubic Penile discharge: None Modifying factors: None associated signs and symptoms: Inability to Void Past Medical History PAST MEDICAL HISTORY: Cancer, High Lipids, Thyroid Surgical History: Hernia Repair Surgical History (Other): R thumb amputation, partial gastric bypass Family History Family History: Unknown Social History Smoker: Quit Greater Than 1 Year Alcohol: Occasionally Drugs: Denies Drug Use Lives In: Home Constitutional: denies: chills, diaphoresis, fatigue, fever, malaise, sweats, weakness, others EENTM: denies: blurred vision, double vision, ear bleeding, ear discharge, ear drainage, ear pain, ear ringing, eye pain, eye redness, hearing loss, mouth pain, mouth swelling, nasal discharge, nose bleeding, nose congestion, nose pain, photophobia, tearing, throat pain, throat swelling, voice changes, others Respiratory: denies: cough, hemoptysis, orthopnea, SOB at rest, shortness of breath, SOB with excertion, stridor, wheezing, others Cardiovascular: denies: chest pain, dizzy spells, diaphoresis, Dyspnea on exertion, edema, irregular heart beat, left arm pain, lightheadedness, palpitations, PND, syncope, others Gastrointestinal: denies: abdomen distended, abdominal pain, blood streaked bowels, constipated, diarrhea, dysphagia, difficulty swallowing, hematemesis, melena, nausea, poor appetite, poor fluid intake, rectal bleeding, rectal pain, vomiting, others Genitourinary: reports: others (inability to void); denies: burning, dysuria, flank pain, frequency, hematuria, incontinence, penile discharge, penile sore, pain, testicle pain, testicle swelling, urgency Neurological: denies: dizziness, fainting, headache, left sided numbness, left sided weakness, numbness, paresthesia, pre-existing deficit, right sided numbness, right sided weakness, seizure, speech problems, tingling, tremors, weakness, others Musculoskeletal: denies: back pain, gout, joint pain, joint swelling, muscle pain, muscle stiffness, neck pain, others Integumetry: denies: bruises, change in color, change in hair/nails, dryness, laceration, lesions, lumps, rash, wounds, others Allergic/Immunocompromised: denies: Difficulty Healing, Frequent Infections, Hives, Itching, others Hematologic/Lymphatic: denies: anemia, blood clots, easy bleeding, easy bruising, swollen glands, others Endocrine: denies: excessive hunger, excessive sweating, excessive thirst, excessive urination, flushing, intolerance to cold, intolerance to heat, unexplained weight gain, unexplained weight loss, others Psychiatric: denies: anxiety, bipolar disorder, depression, hopeless, panic disorder, schizophrenia, sleepless, suicidal, others All Other Systems: Reviewed and Negative Physical Exam General Appearance: Mild Distress HEENT: Normal ENT Inspection, Pharynx Normal, TMs Normal Neck: Full Range of Motion, Non-Tender, Normal, Normal Inspection Respiratory: Chest Non-Tender, Lungs Clear, No Accessory Muscle Use, No Respiratory Distress, Normal Breath Sounds Cardiovascular: No Edema, No JVD, No Murmur, No Gallop, Normal Peripheral Pulses, Regular Rate/Rhythm Breast Exam: Deferred Gastrointestinal: No Organomegaly, No Pulsatile Mass, Normal Bowel Sounds, Soft, Suprapubic, Tenderness Genitalia: Deferred Pelvic: Deferred Rectal: Deferred Extremities: No calf tenderness, Normal capillary refill, Normal inspection, Normal range of motion, Non-tender, No pedal edema Musculoskeletal : Apperance: Normal Neurologic: Alert, bulwark carpenter II-XII nml as Tested, No Motor Deficits, Normal Affect, Normal Mood, No Sensory Deficits Cerebellar Function: Normal Reflexes: Normal Skin: Dry, Normal Color, Warm Lymphatic: No Adenopathy Was a procedure done? Was a procedure done?: No Differential Diagnosis Kidney stone (Female): N/A Kidney stone (Male): Pancreatitis, Pyelonephritis, Renal failure Urinary Problem (Male): Bladder Outlet, Bladder Obstruction, Prostatitis, Urethritis, Urinary Retention, Other (BPH) X-Ray, Labs, Meds, VS Vital Signs Date Time Temp Pulse Resp B/P (MAP) Pulse Ox O2 Delivery O2 Flow Rate FiO2 02/28/24 13:24 97.8 86 20 154/94 (114) 96 Lab Test 02/28/24 13:22 Range/Units Urine Color Light-yellow Yellow Urine Clarity Clear Clear Urine pH 6.5 5.0-9.0 Urine Specific [place] 1.015 1.001-1.035 Urine Protein Negative Negative Urine Ketones Negative Negative Urine Blood Negative Negative /uL Urine Nitrite Negative Negative Urine Bilirubin Negative Negative Urine Urobilinogen Normal Negative mg/dL Urine Leukocyte Esterase Negative Negative /uL Urine RBC 1 0 - 3 /hpf Urine WBC <1 0 - 3 /hpf Urine Squamous Epithelial Cells None seen <5 /hpf Urine Bacteria None seen None Seen /hpf Urine Glucose Normal Normal mg/dL The urine test is negative for any-infection The patient had a Hammond catheter placed with a proximally 1200 cc of clear urine output The patient is being discharged on Flomax The patient was placed in a leg bag The patient will return to the emergency department's the condition worsens. Time of 1ST Reevaluation: 14:00 Reevaluation 1ST: Unchanged Patient Education/Counseling: Diagnosis, Treatment, Prognosis, Need For Follow Up Family Education/Counseling: No Family Present Departure 1 Departure Time of Disposition: 14:26 Impression: Primary Impression: Urinary retention Additional Impression: Hemorrhoids Qualified Codes: K64.9 - Unspecified hemorrhoids Disposition: 01 HOME / SELF CARE / HOMELESS Condition: Fair e-Prescriptions Hydrocortisone Acetate (Anusol-Hc) 25 Mg Sup 1 SUPP DE BID, #14 SUPP Prov: AMARILIS KINCAID MD 02/28/24 Tamsulosin Hcl (Flomax) 0.4 Mg Cap 1 CAP PO DAILY, #30 CAP 11 Refills Prov: AMARILIS KINCAID MD 02/28/24 Discharged With: Self Critical Care Note Critical Care Time?: No Stability Stability form required: No Heart Score Heart Score: Heart Score Response (Comments) Value History N/A 0 EKG N/A 0 Age N/A 0 Risk Factors N/A 0 Troponin N/A 0 Total 0 I personally scribed for AMARILIS KINCAID MD ([email or web address]) on 02/28/24 at 13:35. Electronically submitted by Lashell Trinidad ([email or web address]). AMARILIS KINCAID MD Feb 28, 2024 13:35
[2024-02-28 14:04] LABS: Urine Bacteria None Seen /hpf (None Seen)
[2024-02-28 14:13] LABS: Urine Blood Negative /uL (Negative); Urine Clarity Clear (Clear); Urine Color Light-Yellow (Yellow); Urine Protein, UAD Negative (Negative); Urine Specific Gravity 1.015 (1.001-1.035); Urine Urobilinogen Normal (Negative); Urine WBC <1 /hpf (0 - 3); Urine pH 6.5 (5.0-9.0)
[2024-02-28] MEDS ORDERED: TAMS-35 PO (14:24)
[2024-02-28] MEDS ORDERED: HYDR25SU21 PR (14:24)
--- NOTE | 2024-02-28 16:13 | DVH ---
Exam: CT CT AB PEL WO CON-NO ORAL OR IV History: pain Comparison Study: 01/16/2024 Technique: Multidetector CT of the abdomen and pelvis without contrast. Axial, coronal and sagittal m ultiplanar reformats were performed by the technologist on a separate workstation. Radiation Dose Information: CT Dose: CTDI volume is 15.83 mGy. Dose-length product is 1129.51 mGy*cm Findings: The lung bases are clear. Partially visualized heart is unremarkable. Liver, spleen, moderately distended gallbladder, pancreas and adrenal glands are unremarkable. Kidneys, and ureters are unremarkable. Hammond catheter is noted within the mildly distended urinary bl adder. Foci of air within the urinary bladder which is most likely iatrogenic. Prostate is unremarkab le. Postsurgical changes of gastric bypass. Mild gastric wall thickening. Small bowel loops unremarkable. Appendix is unremarkable. Moderate to large amount of fecal material within the colon. Mild distal r ectal wall edema. 1.5 cm lipoma of the rectosigmoid. 1.9 cm partially calcified epiploic appendage wi thin the left hemipelvis. No evidence of intraperitoneal free air or free fluid. No evidence of aortic aneurysm. Mild atherosclerotic calcification of the aorta. No significant lymphadenopathy. 2.6 x 1.2 cm fluid density of the left anterior pelvis adjacent to the origin of the left inguinal ca nal ; unchanged from prior imaging. The soft tissues are unremarkable. No destructive osseous lesions are noted. IMPRESSION: Postsurgical changes of gastric bypass mild gastric wall thickening. Correlate for mild gastritis. Mild distal rectal wall edema. Correlate for proctitis. Additional findings as above.
[2024-02-28 16:36] VITALS: BP 136/91; PULSE 76; RESP 17; TEMP 99.2; O2SAT 98
== END 2024-02-28 17:05 | disposition home or self-care (01) ==
LOC: ER 13:10
DX: R33.8 Other retention of urine (principal); K64.9 Unspecified hemorrhoids; E78.5 Hyperlipidemia, unspecified; E03.9 Hypothyroidism, unspecified; Z79.899 Other long term (current) drug therapy; Z98.890 Other specified postprocedural states
CPT/HCPCS: 51702; 74176; 81001

== ENCOUNTER 2024-05-30 20:42 | Inpatient (IN) | payer OTHER ==
[~2024-05-30] VITALS: Ht 188 cm; Wt 108.9 kg
[~2024-05-30 20:42] MED LIST changes: +HYDR25SU21 PR; +TAMS-35 PO
[2024-05-30] MEDS: SODIUM CHLORIDE 0.9% 1,000 ML IV ONE (21:15)
--- NOTE | 2024-05-30 21:22 | ED.PDOC ---
History of Present Illness HPI Comments 48 y/o M is BIBA for c/o chills and generalized weakness, today. Per EMS report, patient endorses on having chill symptoms, intermittently, for the past 2x weeks, with additional onset of weakness all day, today. At time of assessment, patient comments on starting vancomycin, today, following recent C. Diff diagnosis. He denies having any chest pain, shortness of breath, nausea, vomiting, fever, or other associated symptoms or modifiers at this time. Patient's vitals were commented by EMS staff to have been stable and within normal limits on scene and en route. Chief Complaint: General Weakness Time Seen by MD: 21:00 Primary Care Provider: LOPEZ Ferguson Reviewed Notes: Nurses Notes, Top Lift Compressor Notes, Medications, Allergies Allergies: Coded Allergies: Amoxicillin (Verified Allergy, Severe, 12/31/21) Ciprofloxacin (Verified Allergy, Severe, projectile vomiting, weakness, shaking, 01/16/24) Penicillins (Verified Allergy, Unknown, 12/31/21) Home Meds Active Scripts Hydrocortisone Acetate (Anusol-Hc) 25 Mg Sup, 1 SUPP [place] BID, #14 SUPP Prov:AMARILIS KINCAID MD 02/28/24 Tamsulosin Hcl (Flomax) 0.4 Mg Cap, 1 CAP PO DAILY, #30 CAP 11 Refills Prov:AMARILIS KNICAID MD 02/28/24 Sulfamethoxazole W/Trimethopri (Bactrim Ds Tablet) 1 Tab Tb, 1 TAB PO BID for 7 Days, #14 TAB Prov:LEONEL TERRY MD 01/16/24 Acetaminophen (Tylenol Extra Strength) 500 Mg Tab, 1000 MG PO Q6HP PRN, #30 TAB prn fever or pain Prov:MANUEL GOMEZ MD 01/16/24 Simethicone (Simethicone) 80 Mg Chw, 2-4 TAB PO Q6HP PRN, #30 TAB.CHEW prn gas Prov:MANUEL GOMEZ MD 01/16/24 Metronidazole (Flagyl) 500 Mg Tab, 1 TAB PO TID for 10 Days, #30 TAB Prov:MANUEL GOMEZ MD 01/16/24 Cephalexin ( Keflex 500) 500 Mg Cap, 1 CAP PO QID PRN, #40 CAP Prov:FREDDY PALOMARES 02/19/22 Megestrol Acetate (Appetite) (Megestrol Acetate) 625 Mg/5 Ml Pilar, 625 MG PO DAILY PRN for 30 Days, #30 EA Prov:MALATHI LEBRON MD 01/14/22 Midodrine HCl (Midodrine HCl) 10 Mg Tab, 10 MG PO TID@0600,1200,1800 for 30 Days, #90 TAB Prov:MALATHI LEBRON MD 01/13/22 Loperamide HCl (Loperamide HCl) 2 Mg Tab, 2 MG PO Q2HPRN PRN, #40 TAB Prov:TAQUERIA HERNANDEZ MD 09/30/18 Potassium Chloride (Potassium Chloride ER) 20 Meq Tab, 20 MEQ PO DAILY, #3 Prov:TAQUERIA HERNANDEZ MD 09/29/18 Reported Medications Sumatriptan Succinate (Sumatriptan Succinate) 100 Mg Tab, 100 MG PO PRN, MG 01/01/22 Cholecalciferol (KP VITAMIN D) 1,000 Unit Cap, 5000 UNIT PO DAILY, CAP 01/01/22 Levothyroxine Sodium (Levothyroxine Sodium) 50 Mcg Tab, 50 MCG PO QAM for 30 Days, MCG 01/01/22 Cholestyramine (QUESTRAN POWDER) 4 Gm Pw, 4 GM PO BID 09/28/18 Diphenoxylate W/ Atropine (Lomotil) 2.5 Mg Tab, 2 TAB PO TID PRN for FOR DIARRHEA, #30 TAB 09/28/18 Pantoprazole Sodium Sesquihydr (Protonix) 40 Mg Tab, 40 MG PO DAILY, #30 TAB 09/28/18 Famotidine (PEPCID TABLET) 20 Mg Tb, 1 TAB PO HS, #60 TAB 5 Refills 09/28/18 Simvastatin (Simvastatin) 5 Mg Tab, 5 MG PO HS, TAB 08/17/18 Prochlorperazine Maleate (Compazine) 10 Mg Tb, 0.5 TAB PO TID, #30 TAB 3 Refills 08/17/18 Information Source: Patient, Emergency Med Personnel Mode of Arrival: EMS Severity: Moderate Timing: Weeks Duration: Since onset Prehospital treatment: 12 Lead EKG, Care Companion Past Medical History PAST MEDICAL HISTORY: Cancer, High Lipids, Thyroid (hypothyroidism ) Past Medical History (Other): C. Diff. chronic pain syndrome Surgical History: Hernia Repair Surgical History (Other): R thumb amputation, partial gastric bypass Family History Family History: Unknown Social History Smoker: Quit Greater Than 1 Year Alcohol: Occasionally Drugs: Denies Drug Use Lives In: Home Constitutional: reports: chills Neurological: reports: weakness All Other Systems: Reviewed and Negative (negative unless otherwise stated above or in HPI) Physical Exam General Appearance: Normal, Severe Distress HEENT: Normal ENT Inspection, Pharynx Normal, TMs Normal Neck: Full Range of Motion, Non-Tender, Normal, Normal Inspection Respiratory: Chest Non-Tender, Lungs Clear, No Accessory Muscle Use, No Respiratory Distress, Normal Breath Sounds Cardiovascular: No Edema, No JVD, No Murmur, No Gallop, Normal Peripheral Pulses, Regular Rate/Rhythm Breast Exam: Deferred Gastrointestinal: No Organomegaly, Non Tender, No Pulsatile Mass, Normal Bowel Sounds, Soft Genitalia: Deferred Pelvic: Deferred Rectal: Deferred Extremities: No calf tenderness, Normal capillary refill, Normal inspection, Normal range of motion, Non-tender, No pedal edema Musculoskeletal : Apperance: Normal Neurologic: Alert, quiller hand II-XII nml as Tested, No Motor Deficits, Normal Affect, Normal Mood, No Sensory Deficits Cerebellar Function: Normal Reflexes: Normal Skin: Dry, Pallor, Warm, Other (multiple sores to bilateral lower extremities ) Lymphatic: No Adenopathy Was a procedure done? Was a procedure done?: No Differential Dx Considerations may include: C. diff., inappropriate antibiotic medication, cellulitis X-Ray, Labs, Meds, VS Vital Signs Date Time Temp Pulse Resp B/P (MAP) Pulse Ox O2 Delivery O2 Flow Rate FiO2 05/31/24 02:45 91/55 05/31/24 01:47 94 05/31/24 01:25 68/37 05/30/24 23:47 102 05/30/24 22:54 128 05/30/24 20:57 97.9 100 24 100/58 (72) 95 05/30/24 20:57 100 24 95 Room Air 0 Lab Test 05/31/24 02:27 05/31/24 02:16 05/31/24 00:44 05/31/24 00:00 Range/Units Lactic Acid Level 1.9 3.5 *H 0.4-2.0 mmol/L Urine Color Yellow Yellow Urine Clarity Clear Clear Urine pH 6.0 5.0-9.0 Urine Specific [place] 1.021 1.001-1.035 Urine Protein 1+ H Negative Urine Ketones 2+ H Negative Urine Blood 1+ H Negative /uL Urine Nitrite Negative Negative Urine Bilirubin Negative Negative Urine Urobilinogen Normal Negative mg/dL Urine Leukocyte Esterase Negative Negative /uL Urine RBC 5 0 - 3 /hpf Urine Microscopic WBC 1 0-3 /HPF Urine Squamous Epithelial Cells Few <5 /hpf Urine Bacteria None seen None Seen /hpf Urine Hyaline Casts Few 0 - 2 /lpf Urine Glucose Normal Normal mg/dL Troponin I High Sensitivity 563 *H </=54 ng/L Test 05/30/24 22:45 05/30/24 21:39 Range/Units Sodium Level 133 L 136-145 mmol/L Potassium Level 3.5 3.5-5.1 mmol/L Chloride Level 102 98-107 mmol/L Carbon Dioxide Level 14 L 20-31 mmol/L Anion Gap 17 H 5-15 Blood Urea Nitrogen 9 9-23 mg/dL Creatinine 1.09 0.700-1.30 mg/dL Glomerular Filtration Rate Calc 83 >90 mL/min BUN/Creatinine Ratio 8.3 L 10.0-20.0 Serum Glucose 86 74-106 mg/dL Calcium Level 9.6 8.7-10.4 mg/dL Magnesium Level 1.9 1.6-2.6 mg/dL Total Bilirubin 1.0 0.2-1.0 mg/dL Aspartate Amino Transferase (AST) 56 H 13-40 U/L Alanine Aminotransferase (ALT) 42 H 7-40 U/L Alkaline Phosphatase 513 H 46-116 U/L Troponin I High Sensitivity 461 *H 425 *H </=54 ng/L Total Protein 7.4 5.7-8.2 g/dL Albumin 4.0 3.2-4.8 g/dL White Blood Count 14.1 H 4.4-10.8 10^3/uL Red Blood Count 3.82 L 4.5-5.90 10^6/uL Hemoglobin 11.0 L 13.5-17.5 g/dL Hematocrit 34.2 L 41.0-53.0 % Mean Corpuscular Volume 89.3 80.0-100.0 fL Mean Corpuscular Hemoglobin 28.6 28.0-32.0 pg Mean Corpuscular Hemoglobin Concent 32.1 32.0-36.0 g/dL Red Cell Distribution Width 14.8 H 11.8-14.3 % Platelet Count 462 H 140-450 10^3/uL Mean Platelet Volume 7.5 6.9-10.8 fL Neutrophils (%) (Auto) 73.4 37.0-80.0 % Lymphocytes (%) (Auto) 14.1 10.0-50.0 % Monocytes (%) (Auto) 9.9 0.0-12.0 % Eosinophils (%) (Auto) 2.3 0.0-7.0 % Basophils (%) (Auto) 0.3 0.0-2.0 % Neutrophils # (Auto) 10.3 H 1.6-8.6 10 ^3/uL Lymphocytes # (Auto) 2.0 0.4-5.4 10 ^3/uL Monocytes # (Auto) 1.4 H 0-1.3 10 ^3/uL Eosinophils # (Auto) 0.3 0-0.8 10 ^3/uL Basophils # (Auto) 0 0-0.2 10 ^3/uL Nucleated Red Blood Cells 0.0 % Lactic Acid Level 1.8 0.4-2.0 mmol/L Current Medications Medications (Trade) Dose Ordered Sig/Amanda Route Start Time Stop Time Status Last Admin Sodium Chloride 1,000 ml @ 1,000 mls/hr Q1H ONCE IV 05/30/24 21:15 05/30/24 22:14 DC 05/30/24 21:15 Ondansetron HCl (Zofran) 4 mg ONCE ONCE IV 05/30/24 21:15 05/30/24 21:16 DC 05/31/24 00:19 Ketorolac Tromethamine (Toradol Injection) 30 mg ONCE ONCE IV 05/30/24 21:15 05/30/24 21:16 DC 05/31/24 00:19 Aspirin (Ecotrin Enteric Coated Tablet) 325 mg ONCE ONCE PO 05/30/24 23:15 05/30/24 23:16 DC 05/31/24 00:18 Enoxaparin Sodium (Lovenox) 90 mg ONCE ONCE SC 05/30/24 23:15 05/30/24 23:16 DC 05/31/24 00:18 Sodium Chloride 2,000 ml @ 1,000 mls/hr Q2H ONCE IV 05/30/24 23:15 05/31/24 01:14 DC 05/30/24 23:29 Vancomycin HCl 250 ml @ 250 mls/hr ONCE ONCE IV 05/30/24 23:15 05/31/24 00:14 DC 05/31/24 00:26 Ceftriaxone Sodium 50 ml @ 100 mls/hr ONCE ONCE IV 05/31/24 00:00 05/31/24 00:29 DC 05/31/24 00:00 Norepinephrine Bitartrate 250 ml @ 3.75 mls/hr Q24H IV 05/31/24 01:15 05/31/24 01:25 Dopamine HCl/ Dextrose 250 ml @ 16.444 mls/ hr [id number] IV 05/31/24 02:30 05/31/24 02:45 [place] [id number] Ph: [phone] DIAGNOSTIC IMAGING Diagnostic Imaging Report : [id number] Signed PATIENT: MELANIA MAGUIRE ACCT: [id number] UNIT: [id number] : 1975 LOC: ER ROOM / BED: / AGE / SEX: 48 / M ADM STATUS: REG ER SERVICE 02 ORDERING PHYSICIAN: RAMSEY MACE MD PROCEDURE(s): CXRP - CHEST PORTABLE REASON: chills ORDER NUMBER(s): [id number], ACCESSION NUMBER(s): [id number] CHEST RADIOGRAPH Indication: chills Technique: Single frontal view of the chest was obtained COMPARISON: CHEST PORTABLE on DOS: 12/31/21, CXRP on DOS: 12/31/21 FINDINGS: Lines and Tubes: None Lungs: Left basilar subsegmental atelectasis. Pleura: No effusion. No pneumothorax. Cardiomediastinal contours: Unremarkable Bones: Unremarkable IMPRESSION: Left basilar subsegmental atelectasis. ATED BY: EFREN DOE MD DICTATED DATE/TIME: 05/30/242346 SIGNED BY: EFREN DOE MD SIGNED DATE/TIME: 05/30/242346 CC: PATIENT: MELANIA MAGUIRE ACCT: [id number] UNIT: [id number] : 1975 LOC: ER ROOM / BED: / AGE / SEX: 48 / M ADM STATUS: REG ER SERVICE 02 ORDERING PHYSICIAN: RAMSEY MACE MD PROCEDURE(s): ABPL - CT AB PEL WO CON-NO ORAL OR IV REASON: diarrhea ORDER NUMBER(s): [id number], ACCESSION NUMBER(s): [id number] Exam: CT CT AB PEL WO CON-NO ORAL OR IV History: diarrhea Comparison Study: CT CT AB PEL WO CON-NO ORAL OR IV on DOS: 02/28/24, CT CT AB PEL WO CON-NO ORAL OR IV on DOS: 01/16/24, ECIDC on DOS: 01/01/22 Technique: Multidetector spiral CT of the abdomen was performed from lung bases to pubic symphysis. Imaging was performed without IV contrast. Axial, coronal and sagittal multiplanar reformats were obtained from the axial data set by the technologist. Radiation Dose : 1. Abdomen/Pelvis: CTDIvol 14.8 mGy, DLP 826.03 mGy*cm. Findings: Evaluation of solid organs is limited due to lack of intravenous contrast use. Lung Bases: Left basilar subsegmental atelectasis. Liver: The liver is normal in size. No focal lesions. Gallbladder and Biliary Tree: Unremarkable Spleen: Unremarkable Pancreas: The pancreas is grossly normal in appearance. Adrenal Glands: Unremarkable Kidneys: Kidneys are grossly normal without calculi or hydronephrosis. Bladder: Grossly unremarkable for degree of distention. Bowel: The stomach is grossly normal in appearance. Moderate diffuse fluid- filled distended loops of colon. Moderate colonic bowel wall thickening involving the descending colon. The appendix is not visualized; however, no secondary findings of acute appendicitis identified. Ascites: Absent Lymphadenopathy: No mesenteric, retroperitoneal or periportal lymphadenopathy. Abdominal Wall and Mesentery: Unremarkable. Vasculature: The visualized abdominal aorta is normal in size and caliber. Evaluation of abdominal and pelvic vessels is limited due to lack of intravenous contrast. Pelvic Organs: Unremarkable Musculoskeletal: No aggressive focal bony lesions, acute fractures or dislocation. Degenerative changes of the spine. IMPRESSION: Findings are suspicious for diarrhea/ colitis. Radiation optimization: All CT scans at this facility use at least one of these dose optimization techniques: automated exposure control mA and/or kV adjustment per patient size (includes targeted exams where dose is matched to clinical indication) or iterative reconstruction. ATED BY: EFREN DOE MD DICTATED DATE/TIME: 05/31/2410 SIGNED BY: EFREN DOE MD SIGNED DATE/TIME: 05/31/2410 CC: 3.5. Second lactic acid is pending. The UA is negative Troponin is 461 and 563. EKG shows left bundle branch block. I spoke to Dr. Henri Weller and said he will consult the patient for catheterization in echo. The patient was placed on Lovenox and aspirin CT scan shows colitis. The patient is given vancomycin and Rocephin. The patient also has a lower extremity rash which he was told by the [facility] is in conjunction with alyse pretty. The patient will be admitted to the hospitalist for further evaluation and care. Time of 1ST Reevaluation: 21:30 Reevaluation 1ST: Unchanged Patient Education/Counseling: Diagnosis, Treatment Family Education/Counseling: No Family Present Departure 1 Departure Time of Disposition: 03:08 Impression: Primary Impression: Colitis Additional Impressions: Dehydration Sepsis Qualified Codes: A41.9 - Sepsis, unspecified organism Acute coronary syndrome Disposition: ADMITTED INPATIENT Admit to: ICU Condition: Critical Critical Care Note Critical Care Time?: Yes (55 min-critical care time only) Stability Stability form required: No Heart Score Heart Score: Heart Score Response (Comments) Value History N/A 0 EKG N/A 0 Age N/A 0 Risk Factors N/A 0 Troponin N/A 0 Total 0 I personally scribed for RAMSEY MACE MD ([email or web address]) on 05/30/24 at 21:22. Electronically submitted by Lino Corona ([email or web address]). I personally scribed for RAMSEY MACE MD ([email or web address]) on 05/30/24 at 21:48. Electronically submitted by Lino Corona ([email or web address]). RAMSEY MACE MD May 30, 2024 21:22
[2024-05-30 21:56] LABS: Basophils # (auto) 0 10 ^3/uL (0-0.2); Basophils % (auto) 0.3 % (0.0-2.0); Eosinophils # (auto) 0.3 10 ^3/uL (0-0.8); Eosinophils % (auto) 2.3 % (0.0-7.0); Hematocrit 34.2 % (41.0-53.0); Lymphocytes % (auto) 14.1 % (10.0-50.0); Mean Corpuscular Hemoglobin 28.6 pg (28.0-32.0); Mean Corpuscular Hgb Conc. 32.1 g/dL (32.0-36.0); Mean Corpuscular Volume 89.3 fL (80.0-100.0); Monocytes # (auto) 1.4 10 ^3/uL (0-1.3); Monocytes % (auto) 9.9 % (0.0-12.0); Neutrophils # (auto) 10.3 10 ^3/uL (1.6-8.6); Neutrophils % (auto) 73.4 % (37.0-80.0); Platelet Count (auto) 462 10^3/uL (140-450); Red Blood Cells 3.82 10^6/uL (4.5-5.90); Red Cell Distribution Width 14.8 % (11.8-14.3); White Blood Cell 14.1 10^3/uL (4.4-10.8)
[2024-05-30] MEDS: SODIUM CHLORIDE 0.9% 2,000 ML IV ONE (23:29)
[2024-05-30 23:30] VITALS: PULSE 110; RESP 26; O2SAT 94
[2024-05-30 23:37] LABS: Anion Gap 17 (5-15); BUN/Creatinine Ratio 8.3 (10.0-20.0); Calcium 9.6 mg/dL (8.7-10.4); Chloride 102 mmol/L (98-107); Glucose 86 mg/dL (74-106); Magnesium 1.9 mg/dL (1.6-2.6); Potassium 3.5 mmol/L (3.5-5.1)
[2024-05-30 23:38] LABS: Total Protein 7.4 g/dL (5.7-8.2)
[2024-05-30 23:45] LABS: Alanine Aminotransferase 42 U/L (7-40); Alkaline Phosphatase 513 U/L (46-116); Aspartate Aminotransferase 56 U/L (13-40); Blood Urea Nitrogen 9 mg/dL (9-23); Carbon Dioxide 14 mmol/L (20-31); Sodium 133 mmol/L (136-145)
--- NOTE | 2024-05-30 23:52 | DVH ---
CHEST RADIOGRAPH Indication: chills Technique: Single frontal view of the chest was obtained COMPARISON: CHEST PORTABLE on DOS: 12/31/21, CXRP on DOS: 12/31/21 FINDINGS: Lines and Tubes: None Lungs: Left basilar subsegmental atelectasis. Pleura: No effusion. No pneumothorax. Cardiomediastinal contours: Unremarkable Bones: Unremarkable IMPRESSION: Left basilar subsegmental atelectasis.
[2024-05-31] MEDS: cefTRIAXone 1GM/50ML D5W 50 ML IV ONE
--- NOTE | 2024-05-31 00:15 | DVH ---
Exam: CT CT AB PEL WO CON-NO ORAL OR IV History: diarrhea Comparison Study: CT CT AB PEL WO CON-NO ORAL OR IV on DOS: 02/28/24, CT CT AB PEL WO CON-NO ORAL OR IV on DOS: 01/16/24, ECIDC on DOS: 01/01/22 Technique: Multidetector spiral CT of the abdomen was performed from lung bases to pubic symphysis. Imaging was performed without IV contrast. Axial, coronal and sagittal multiplanar reformats were ob tained from the axial data set by the technologist. Radiation Dose : 1. Abdomen/Pelvis: CTDIvol 14.8 mGy, DLP 826.03 mGy*cm. Findings: Evaluation of solid organs is limited due to lack of intravenous contrast use. Lung Bases: Left basilar subsegmental atelectasis. Liver: The liver is normal in size. No focal lesions. Gallbladder and Biliary Tree: Unremarkable Spleen: Unremarkable Pancreas: The pancreas is grossly normal in appearance. Adrenal Glands: Unremarkable Kidneys: Kidneys are grossly normal without calculi or hydronephrosis. Bladder: Grossly unremarkable for degree of distention. Bowel: The stomach is grossly normal in appearance. Moderate diffuse fluid-filled distended loops of colon. Moderate colonic bowel wall thickening involving the descending colon. The appendix is not v isualized; however, no secondary findings of acute appendicitis identified. Ascites: Absent Lymphadenopathy: No mesenteric, retroperitoneal or periportal lymphadenopathy. Abdominal Wall and Mesentery: Unremarkable. Vasculature: The visualized abdominal aorta is normal in size and caliber. Evaluation of abdominal a nd pelvic vessels is limited due to lack of intravenous contrast. Pelvic Organs: Unremarkable Musculoskeletal: No aggressive focal bony lesions, acute fractures or dislocation. Degenerative escobar es of the spine. IMPRESSION: Findings are suspicious for diarrhea/ colitis. Radiation optimization: All CT scans at this facility use at least one of these dose optimization jennifer hniques: automated exposure control mA and/or kV adjustment per patient size (includes targeted exam s where dose is matched to clinical indication) or iterative reconstruction.
[2024-05-31] MEDS: ASPirin-EC 325mg tab PO ONE (00:18)
[2024-05-31] MEDS: ENOXAPARIN SOD 100 MG/1 ML SYRINGE SC ONE (00:18)
[2024-05-31] MEDS: ONDANSETRON HCL 4 MG/2 ML VIAL IV ONE (00:19)
[2024-05-31] MEDS: KETOROLAC TROMETH 30 MG/ML 1ML VIAL IV ONE (00:19)
[2024-05-31] MEDS: VANCOMYCIN 1GM/250ML KIT 250 ML IV ONE (00:26)
[2024-05-31 00:34] LABS: Lactic Acid w/Reflex 3.5 mmol/L (0.4-2.0)
--- NOTE | 2024-05-31 00:41 | ECG ---
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
[2024-05-31] MEDS: NOREPINEPHRINE 8 MG/250ML KIT 250 ML IV SCH (01:25)
[2024-05-31 02:18] LABS: Urine Bacteria None Seen /hpf (None Seen)
[2024-05-31 02:24] LABS: Urine Blood 1+ /uL (Negative); Urine Clarity Clear (Clear); Urine Color Yellow (Yellow); Urine Hyaline Cast FEW /lpf (0 - 2); Urine Protein, UAD 1+ (Negative); Urine Specific Gravity 1.021 (1.001-1.035); Urine Squamous Epithelial Cell FEW /hpf (<5); Urine Urobilinogen Normal (Negative); Urine WBC 1 /HPF (0-3)
[2024-05-31] MEDS: DOPamine 1600MCG/ML D5W 250 ML IV SCH (02:45)
[2024-05-31] MEDS: SODIUM CHLORIDE 0.9% 1,000 ML IV SCH (04:30)
[2024-05-31] MEDS ORDERED: VANCOMYCIN PER PHARMACY 0 MG IV SCH (04:30)
[2024-05-31] MEDS ORDERED: ONDANSETRON HCL 4 MG/2 ML VIAL IV PRN (04:30)
[2024-05-31] MEDS ORDERED: MORPHINE SULFATE INJ 2 MG/ml SYRG IV PRN (04:30)
[2024-05-31] MEDS ORDERED: NITROGLYCERIN 0.4 MG SL TAB SL PRN (04:30)
[2024-05-31] MEDS: SODIUM CHLORIDE 0.9% 1,000 ML IV ONE (04:36)
--- NOTE | 2024-05-31 04:55 | DVHHP2 ---
Admitting Diagnosis: Acute Colitis, Diarrhea, Dehydration, Sepsis, Elevated troponin, History of Present Illness History Source: Patient Exam Limitations: No limitations HPI Mr. Rolando Lu is a 48 year old male who presents with a chief complaint of chills and generalized weakness. Patient endorses having chills intermittently for the past 2x weeks, with additional onset of weakness all day, yesterday. Estela rubio reports he started vancomycin, yesterday following recent C. Diff diagnosis. Patient CT abdomen and pelvis resulted Findings are suspicious for diarrhea/ colitis. Patient WBC 14.1, H&H 11/34.2, Platelets 462, Na 133, K 3.5, BUN 9/1.09, Lactic 3.5, 1.9, AST 56, ALT 42, ALP 513, Troponin 461, 563. Patient admitted for further evaluation. Home Meds Active Scripts Hydrocortisone Acetate (Anusol-Hc) 25 Mg Sup, [address] BID, #14 SUPP Prov:AMARILIS KINCAID MD 02/28/24 Tamsulosin Hcl (Flomax) 0.4 Mg Cap, 1 CAP PO DAILY, #30 CAP 11 Refills Prov:AMARILIS KINCAID MD 02/28/24 Sulfamethoxazole W/Trimethopri (Bactrim Ds Tablet) 1 Tab Tb, 1 TAB PO BID for 7 Days, #14 TAB Prov:LEONEL TERRY MD 01/16/24 Acetaminophen (Tylenol Extra Strength) 500 Mg Tab, 1000 MG PO Q6HP PRN, #30 TAB prn fever or pain Prov:MANUEL GOMEZ MD 01/16/24 Simethicone (Simethicone) 80 Mg Chw, 2-4 TAB PO Q6HP PRN, #30 TAB.CHEW prn gas Prov:MANUEL GOMEZ MD 01/16/24 Metronidazole (Flagyl) 500 Mg Tab, 1 TAB PO TID for 10 Days, #30 TAB Prov:MANUEL GOMEZ MD 01/16/24 Cephalexin ( Keflex 500) 500 Mg Cap, 1 CAP PO QID PRN, #40 CAP Prov:FREDDY PALOMARES 02/19/22 Megestrol Acetate (Appetite) (Megestrol Acetate) 625 Mg/5 Ml Pilar, 625 MG PO DAILY PRN for 30 Days, #30 EA Prov:MALATHI LEBRON MD 01/14/22 Midodrine HCl (Midodrine HCl) 10 Mg Tab, 10 MG PO TID@0600,1200,1800 for 30 Days, #90 TAB Prov:MALATHI LEBRON MD 01/13/22 Loperamide HCl (Loperamide HCl) 2 Mg Tab, 2 MG PO Q2HPRN PRN, #40 TAB Prov:TAQUERIA HERNANDEZ MD 09/30/18 Potassium Chloride (Potassium Chloride ER) 20 Meq Tab, 20 MEQ PO DAILY, #3 Prov:TAQUERIA HERNANDEZ MD 09/29/18 Reported Medications Sumatriptan Succinate (Sumatriptan Succinate) 100 Mg Tab, 100 MG PO PRN, MG 01/01/22 Cholecalciferol (KP VITAMIN D) 1,000 Unit Cap, 5000 UNIT PO DAILY, CAP 01/01/22 Levothyroxine Sodium (Levothyroxine Sodium) 50 Mcg Tab, 50 MCG PO QAM for 30 Days, MCG 01/01/22 Cholestyramine (QUESTRAN POWDER) 4 Gm Pw, 4 GM PO BID 09/28/18 Diphenoxylate W/ Atropine (Lomotil) 2.5 Mg Tab, 2 TAB PO TID PRN for FOR DIARRHEA, #30 TAB 09/28/18 Pantoprazole Sodium Sesquihydr (Protonix) 40 Mg Tab, 40 MG PO DAILY, #30 TAB 09/28/18 Famotidine (PEPCID TABLET) 20 Mg Tb, 1 TAB PO HS, #60 TAB 5 Refills 09/28/18 Simvastatin (Simvastatin) 5 Mg Tab, 5 MG PO HS, TAB 08/17/18 Prochlorperazine Maleate (Compazine) 10 Mg Tb, 0.5 TAB PO TID, #30 TAB 3 Refills 08/17/18 Past Medical History Cardiac: No pertinent Hx Pulmonary: No pertinent Hx Central Nervous System: No pertinent Hx GI: No pertinent Hx Hemotology/Oncology: No pertinent Hx Hepatobiliary: No pertinent Hx Psychiatric: No pertinent Hx Musculoskeletal: No pertinent Hx Rheumotologic: No pertinent Hx Infectious Disease: No peritnent Hx ENT: No pertinent Hx Renal/: No pertinent Hx Endocrine: No pertinent Hx Dermatology: No pertinent Hx Patient Family History: Asthma G8 SISTER, Onset:Unknown Hypercholesterolemia G8 MOTHER, Onset:Unknown Hypertension G8 MOTHER, Onset:Unknown Smoker: No Hx (Negative) Alocohol: None Drugs: None Lives with: With family Domestic Violence: Neg Review of Systems Constitutional: Chills, Diaphoresis, Sweats, Weakness Ears, Nose, & Throat: No symptom reported Eyes: No symptom reported Pulmonary/Respiratory: No symptom reported Cardiovascular: No symptom reported Gastrointestinal: Diarrhea (x2 weeks) Genitourinary: No symptom reported Musculoskeletal: No symptom reported Skin: No symptom reported Psychiatric: No symptom reported Endocrine: No symptom reported Hemotologic/Lymphatic: No symptom reported H&P Exam Vital Signs Vital Signs Date Time Temp Pulse Resp B/P (MAP) Pulse Ox O2 Delivery O2 Flow Rate FiO2 05/31/24 04:00 111 05/31/24 04:00 22 104/52 (69) 90 05/30/24 23:30 98.3 98.3 05/30/24 20:57 Room Air 0 General Appeara: Well developed, Well nourished, Other (ill appearing) Head Exam: Normal inspection Neck Exam: Normal inspection, Non-tender, Normal alignment Eye Exam: bilateral eye Normal inspection, bilateral eye PERRL, bilateral eye EOMI Ear Exam: bilateral ear Auricle normal Nasal Exam: Normal inspection Mouth: Normal Inspection Pulmonary/Respiratory: Normal inspection, Normal breath sounds, Chest non- tender, Lungs clear Cardiovascular/Chest: Normal inspection, Regular rate, Normal Rhythm Peripheral Pulses: 2+ dorsalis pedis (R), 2+ dorsalis pedis (L), 2+ Radial (R), 2+ Radial (L) Abdominal Exam: Normal bowel sounds, Soft Abdominal Pain Onset Location: Generalized abdomen Rectal Exam: Deferred Back Exam: Normal inspection [employer]OR [employer] Exam: Normal hearing, Normal speech, PERRL Motor/Sensory: Normal sensory function, Normal motor function Neuro/Mental St: Alert, Oriented Appearance: Appropriate appearance, Appropriate insight Eye contact/ Speech: Cooperative, Good eye contact, Normal speech Thoughts/Psych: Normal thought pattern Skin Exam: Normal inspection, Other (pallor) Labs/Xrays Labs Test 05/31/24 02:27 05/31/24 02:16 05/31/24 00:44 05/30/24 22:45 Range/Units Lactic Acid Level 1.9 0.4-2.0 mmol/L Urine Color Yellow Yellow Urine Clarity Clear Clear Urine pH 6.0 5.0-9.0 Urine Specific [place] 1.021 1.001-1.035 Urine Protein 1+ H Negative Urine Ketones 2+ H Negative Urine Blood 1+ H Negative /uL Urine Nitrite Negative Negative Urine Bilirubin Negative Negative Urine Urobilinogen Normal Negative mg/dL Urine Leukocyte Esterase Negative Negative /uL Urine RBC 5 0 - 3 /hpf Urine Microscopic WBC 1 0-3 /HPF Urine Squamous Epithelial Cells Few <5 /hpf Urine Bacteria None seen None Seen /hpf Urine Hyaline Casts Few 0 - 2 /lpf Urine Glucose Normal Normal mg/dL Troponin I High Sensitivity 563 *H </=54 ng/L Sodium Level 133 L 136-145 mmol/L Potassium Level 3.5 3.5-5.1 mmol/L Chloride Level 102 98-107 mmol/L Carbon Dioxide Level 14 L 20-31 mmol/L Anion Gap 17 H 5-15 Blood Urea Nitrogen 9 9-23 mg/dL Creatinine 1.09 0.700-1.30 mg/dL Glomerular Filtration Rate Calc 83 >90 mL/min BUN/Creatinine Ratio 8.3 L 10.0-20.0 Serum Glucose 86 74-106 mg/dL Calcium Level 9.6 8.7-10.4 mg/dL Magnesium Level 1.9 1.6-2.6 mg/dL Total Bilirubin 1.0 0.2-1.0 mg/dL Aspartate Amino Transferase (AST) 56 H 13-40 U/L Alanine Aminotransferase (ALT) 42 H 7-40 U/L Alkaline Phosphatase 513 H 46-116 U/L Total Protein 7.4 5.7-8.2 g/dL Albumin 4.0 3.2-4.8 g/dL Test 05/30/24 21:39 Range/Units White Blood Count 14.1 H 4.4-10.8 10^3/uL Red Blood Count 3.82 L 4.5-5.90 10^6/uL Hemoglobin 11.0 L 13.5-17.5 g/dL Hematocrit 34.2 L 41.0-53.0 % Mean Corpuscular Volume 89.3 80.0-100.0 fL Mean Corpuscular Hemoglobin 28.6 28.0-32.0 pg Mean Corpuscular Hemoglobin Concent 32.1 32.0-36.0 g/dL Red Cell Distribution Width 14.8 H 11.8-14.3 % Platelet Count 462 H 140-450 10^3/uL Mean Platelet Volume 7.5 6.9-10.8 fL Neutrophils (%) (Auto) 73.4 37.0-80.0 % Lymphocytes (%) (Auto) 14.1 10.0-50.0 % Monocytes (%) (Auto) 9.9 0.0-12.0 % Eosinophils (%) (Auto) 2.3 0.0-7.0 % Basophils (%) (Auto) 0.3 0.0-2.0 % Neutrophils # (Auto) 10.3 H 1.6-8.6 10 ^3/uL Lymphocytes # (Auto) 2.0 0.4-5.4 10 ^3/uL Monocytes # (Auto) 1.4 H 0-1.3 10 ^3/uL Eosinophils # (Auto) 0.3 0-0.8 10 ^3/uL Basophils # (Auto) 0 0-0.2 10 ^3/uL Nucleated Red Blood Cells 0.0 % Assessment/Plan Problem List: (1) Colitis (2) Dehydration (3) Sepsis (4) Acute coronary syndrome Plan This is a 48 yo male who presents with chills and diarrhea. Patient was found to have 1. Acute colitis/Diarrhea 2. Hypovolemic shock 3. NSTEMI 4. rule out C diff 5. Dehydration Plan Admit ICU GI consultation, IV fluids, NPO Infectious Disease consultation, IV antibiotics Vancomycin per pharmacy protocol, Flagyl Blood cultures x2, urine culture, stool for C diff , leukocytes, culture Cardiology consultation , 2D echo, serial troponin levels, ASA, Statin, Lovenox SC Pulmonology consultation GI ppx Protonix Monitor electrolytes replenish as needed Monitor CBC, BMP, IV fluid resuscitation NS Vasopressors as needed for optimal blood pressure management Discussed all above with patient who verbalizes agreement and understanding of care plan. All questions were answered. Discussed assessment and care plan with supervising MD. Plan discussed with: Patient, Other Code Visit Code Visit Total Time (mins): 45 Additional Comments Additional Comments Additional Comments 48-year-old male with a known history of malignant melanoma, history of rectal fistula and fissures presented to the hospital with abdominal pain nausea vom iting found to have 1. Septic shock secondary to colitis 2. C diff colitis 3. Campylobacter enteritis 4. Left bundle branch block suspect NSTEMI 5. Hypovolemic and septic shock 6. History of Melanoma 7. Rectal fistulas and fistulas status post recent surgery at [facility] -vancomycin p.o. for C diff colitis, infectious disease consultation -patient was remains critical prognosis remained guarded, GI consultation. -please titrate IV vasopressor for systolic blood pressure more than 90. SHAQUILLE SCHOFIELD May 31, 2024 04:55 MARLENA DIAZ MD May 31, 2024 16:49
[2024-05-31] MEDS: VANCOMYCIN 1GM/250mL NS or D5W KIT IV ONE (05:07)
[2024-05-31 05:09] LABS: Basophils # (auto) 0.1 10 ^3/uL (0-0.2); Eosinophils # (auto) 0.6 10 ^3/uL (0-0.8); Mean Corpuscular Hemoglobin 28.9 pg (28.0-32.0); Red Cell Distribution Width 14.8 % (11.8-14.3)
[2024-05-31 05:10] LABS: Basophils % (auto) 0.5 % (0.0-2.0); Eosinophils % (auto) 2.9 % (0.0-7.0); Hematocrit 33.5 % (41.0-53.0); Hemoglobin 10.9 g/dL (13.5-17.5); Lymphocytes % (auto) 9.9 % (10.0-50.0); Mean Corpuscular Hgb Conc. 32.6 g/dL (32.0-36.0); Mean Corpuscular Volume 88.6 fL (80.0-100.0); Monocytes # (auto) 1.9 10 ^3/uL (0-1.3); Monocytes % (auto) 9.4 % (0.0-12.0); Neutrophils # (auto) 15.4 10 ^3/uL (1.6-8.6); Neutrophils % (auto) 77.3 % (37.0-80.0); Platelet Count (auto) 503 10^3/uL (140-450); Red Blood Cells 3.78 10^6/uL (4.5-5.90)
[2024-05-31 05:22] LABS: Chloride 107 mmol/L (98-107); Sodium 137 mmol/L (136-145)
[2024-05-31 05:23] LABS: Anion Gap 11 (5-15)
[2024-05-31 05:28] LABS: BUN/Creatinine Ratio 9.7 (10.0-20.0); Blood Urea Nitrogen 11 mg/dL (9-23)
[2024-05-31 05:29] LABS: Magnesium 1.7 mg/dL (1.6-2.6)
[2024-05-31 05:41] LABS: Calcium 8.1 mg/dL (8.7-10.4); Carbon Dioxide 19 mmol/L (20-31); Glucose 107 mg/dL (74-106); Potassium 2.6 mmol/L (3.5-5.1)
--- NOTE | 2024-05-31 06:43 | ECG ---
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
--- NOTE | 2024-05-31 06:43 | ECG ---
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
[2024-05-31] MEDS: POTASSIUM CHLORIDE 80 MEQ, LIDOCAINE 1% (LOCAL ANESTH.) 6 ML in SODIUM CHL 0.9% 500 ML IV ONE (07:15)
--- NOTE | 2024-05-31 07:57 | DVHNC2 ---
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: Attending Physician Indication: Hypotension, CVP monitoring Room prepared for procedure: Yes Building Trades Instructor performed hand hygien: Yes Maximal sterile barrier precau: Mask/Eye shield, Sterile gown Skin Preparation: Chlorhexidine gluconate, Providine iodine Skin preparation completely dr: Yes Insertion site: Right, Internal jugular Central line catheter type: Oiu-[id number] dialysis Number of lumens: 3 Antiseptic ointment applied to: Yes Post Assessment: Chest X-Ray Notes Tolerated the procedure Date of Service: May 31, 2024 Billing Provider: HUSSAIN ALEXADNRE MD Common Visit Codes: 13380-DLYEMCA INP/OBS CARE (HIGH) Secondary Visit Codes: 76261-[id number] STANDBY SERVICE Consultation Codes: 19862-IPYUKIUEM CONSULT <45MIN Procedure Codes: 50365-IVMQNF NON-TUNNEL CV CATH HUSSAIN ALEXANDRE MD May 31, 2024 07:57
[2024-05-31] MEDS: VASOPRESSIN 20 UNITS in SODIUM CHL 0.9% 99 ML IV SCH (08:13)
--- NOTE | 2024-05-31 08:24 | DVH ---
CHEST RADIOGRAPH Indication: S/P CENTRAL LINE PLACEMENT Technique: Single frontal view of the chest was obtained COMPARISON: XY CHEST PORTABLE on DOS: 05/30/24, CHEST PORTABLE on DOS: 12/31/21, CXRP on DOS: 12/31/21 FINDINGS: Lines and Tubes: Right central venous catheter in satisfactory position. Lungs: Clear Pleura: No effusion. No pneumothorax. Cardiomediastinal contours: Unremarkable Bones: Unremarkable IMPRESSION: Right central venous catheter in satisfactory position overlying the superior vena cava.
[2024-05-31 08:28] VITALS: PULSE 104; RESP 16; O2SAT 97
[2024-05-31] MEDS: metroNIDAZOLE 500MG/100ML 100 ML IV SCH (08:56)
[2024-05-31] MEDS ORDERED: cefTRIAXone 1GM/50ML D5W 50 ML IV SCH (10:00)
[2024-05-31] MEDS: PANTOPRAZOLE 40 MG/10 ML VIAL INJ IV SCH (10:03)
[2024-05-31] MEDS: ASPirin-EC 81 mg tab PO SCH (10:04)
[2024-05-31] MEDS: ENOXAPARIN SOD 100 MG/1 ML SYRINGE SC SCH (10:06)
--- NOTE | 2024-05-31 12:34 | DVHINCON2 ---
Date of service: May 31, 2024 History of Present Illness 48 yo M without previous CV history , recent being sick and bedbound for 5 months for colitis, admitted for c diff colitis and septic shock. pt found to have nstemi and LBBB on ecg Past Medical History reviewed Family History: Asthma G8 SISTER, Onset:Unknown Hypercholesterolemia G8 MOTHER, Onset:Unknown Hypertension G8 MOTHER, Onset:Unknown Allergies: Coded Allergies: Amoxicillin (Verified Allergy, Severe, 12/31/21) Ciprofloxacin (Verified Allergy, Severe, projectile vomiting, weakness, shaking, 01/16/24) Penicillins (Verified Allergy, Unknown, 12/31/21) Home Meds Active Scripts Hydrocortisone Acetate (Anusol-Hc) 25 Mg Sup, 1 SUPP [place] BID, #14 SUPP Prov:AMARILIS KINCAID MD 02/28/24 Tamsulosin Hcl (Flomax) 0.4 Mg Cap, 1 CAP PO DAILY, #30 CAP 11 Refills Prov:AMARILIS KINCAID MD 02/28/24 Sulfamethoxazole W/Trimethopri (Bactrim Ds Tablet) 1 Tab Tb, 1 TAB PO BID for 7 Days, #14 TAB Prov:LEONEL TERRY MD 01/16/24 Acetaminophen (Tylenol Extra Strength) 500 Mg Tab, 1000 MG PO Q6HP PRN, #30 TAB prn fever or pain Prov:MANUEL GOMEZ MD 01/16/24 Simethicone (Simethicone) 80 Mg Chw, 2-4 TAB PO Q6HP PRN, #30 TAB.CHEW prn gas Prov:MANUEL GOMEZ MD 01/16/24 Metronidazole (Flagyl) 500 Mg Tab, 1 TAB PO TID for 10 Days, #30 TAB Prov:MANUEL GOMEZ MD 01/16/24 Cephalexin ( Keflex 500) 500 Mg Cap, 1 CAP PO QID PRN, #40 CAP Prov:FREDDY PALOMARES 02/19/22 Megestrol Acetate (Appetite) (Megestrol Acetate) 625 Mg/5 Ml Pilar, 625 MG PO DAILY PRN for 30 Days, #30 EA Prov:MALATHI LEBRON MD 01/14/22 Midodrine HCl (Midodrine HCl) 10 Mg Tab, 10 MG PO TID@0600,1200,1800 for 30 Days, #90 TAB Prov:MALATHI LEBRON MD 01/13/22 Loperamide HCl (Loperamide HCl) 2 Mg Tab, 2 MG PO Q2HPRN PRN, #40 TAB Prov:TAQUERIA HERNANDEZ MD 09/30/18 Potassium Chloride (Potassium Chloride ER) 20 Meq Tab, 20 MEQ PO DAILY, #3 Prov:TAQUERIA HERNANDEZ MD 09/29/18 Reported Medications Sumatriptan Succinate (Sumatriptan Succinate) 100 Mg Tab, 100 MG PO PRN, MG 01/01/22 Cholecalciferol (KP VITAMIN D) 1,000 Unit Cap, 5000 UNIT PO DAILY, CAP 01/01/22 Levothyroxine Sodium (Levothyroxine Sodium) 50 Mcg Tab, 50 MCG PO QAM for 30 Days, MCG 01/01/22 Cholestyramine (QUESTRAN POWDER) 4 Gm Pw, 4 GM PO BID 09/28/18 Diphenoxylate W/ Atropine (Lomotil) 2.5 Mg Tab, 2 TAB PO TID PRN for FOR DIARRHEA, #30 TAB 09/28/18 Pantoprazole Sodium Sesquihydr (Protonix) 40 Mg Tab, 40 MG PO DAILY, #30 TAB 09/28/18 Famotidine (PEPCID TABLET) 20 Mg Tb, 1 TAB PO HS, #60 TAB 5 Refills 09/28/18 Simvastatin (Simvastatin) 5 Mg Tab, 5 MG PO HS, TAB 08/17/18 Prochlorperazine Maleate (Compazine) 10 Mg Tb, 0.5 TAB PO TID, #30 TAB 3 Refills 08/17/18 Current Medications Current Medications Medications (Trade) Dose Ordered Sig/Amanda Route PRN Reason Start Time Stop Time Status Last Admin Norepinephrine Bitartrate 250 ml @ 3.75 mls/hr Q24H IV 05/31/24 01:15 05/31/24 11:15 Dopamine HCl/ Dextrose 250 ml @ 16.444 mls/ hr [id number] IV 05/31/24 02:30 05/31/24 02:45 Nitroglycerin (Ntrostat Sublingual) 0.4 mg Q5MINP PRN SL FOR CHEST PAIN 05/31/24 04:30 Morphine Sulfate 2 mg Q30M PRN IV FOR CHEST PAIN 05/31/24 04:30 Vancomycin HCl 0 ml @ 0 mls/hr UD IV 05/31/24 04:30 Ceftriaxone Sodium 50 ml @ 100 mls/hr DAILY IV 05/31/24 10:00 05/31/24 04:46 DC Ondansetron HCl (Zofran) 4 mg Q6HP PRN IV NAUSEA / VOMITING 05/31/24 04:30 Atorvastatin Calcium (Lipitor) 40 mg HS PO 05/31/24 22:00 Pantoprazole Sodium (Protonix) 40 mg DAILY IV 05/31/24 10:00 05/31/24 10:03 Aspirin (Ecotrin Enteric Coated Tablet) 81 mg DAILY PO 05/31/24 10:00 05/31/24 10:04 Sodium Chloride 1,000 ml @ 125 mls/hr Q8H IV 05/31/24 04:30 05/31/24 04:30 Enoxaparin Sodium (Lovenox) 90 mg Q12HR SC 05/31/24 10:00 05/31/24 10:06 Metronidazole 100 ml @ 100 mls/hr Q8HR IV 05/31/24 06:00 05/31/24 08:56 Vasopressin 20 units/Sodium Chloride 100 ml @ 9 mls/hr Q11H7M IV 05/31/24 07:30 05/31/24 08:13 Review of Systems +diarrhea +fatigue 10 pt ros otherwise negative Vital Signs Vital Signs Date Time Temp Pulse Resp B/P (MAP) Pulse Ox O2 Delivery O2 Flow Rate FiO2 05/31/24 11:15 110/75 05/31/24 11:00 103 28 96 05/31/24 08:28 Nasal Cannula* 4 36 05/31/24 07:15 98.9 98.9 Physical Exam mild distress, frail ,pale s1 s2 rrr diffuse rhonchi abd soft nt/ Labs/Diagnostic Data Labs Test 05/31/24 11:43 05/31/24 08:38 05/31/24 04:52 05/31/24 02:16 Range/Units POC Glucose 94 70-106 mg/dl White Blood Count 20.0 #H 4.4-10.8 10^3/uL Red Blood Count 3.78 L 4.5-5.90 10^6/uL Hemoglobin 10.9 L 13.5-17.5 g/dL Hematocrit 33.5 L 41.0-53.0 % Mean Corpuscular Volume 88.6 80.0-100.0 fL Mean Corpuscular Hemoglobin 28.9 28.0-32.0 pg Mean Corpuscular Hemoglobin Concent 32.6 32.0-36.0 g/dL Red Cell Distribution Width 14.8 H 11.8-14.3 % Platelet Count 503 H 140-450 10^3/uL Mean Platelet Volume 6.9 6.9-10.8 fL Neutrophils (%) (Auto) 77.3 37.0-80.0 % Lymphocytes (%) (Auto) 9.9 L 10.0-50.0 % Monocytes (%) (Auto) 9.4 0.0-12.0 % Eosinophils (%) (Auto) 2.9 0.0-7.0 % Basophils (%) (Auto) 0.5 0.0-2.0 % Neutrophils # (Auto) 15.4 H 1.6-8.6 10 ^3/uL Lymphocytes # (Auto) 2.0 0.4-5.4 10 ^3/uL Monocytes # (Auto) 1.9 H 0-1.3 10 ^3/uL Eosinophils # (Auto) 0.6 0-0.8 10 ^3/uL Basophils # (Auto) 0.1 0-0.2 10 ^3/uL Nucleated Red Blood Cells 0.0 % Sodium Level 137 136-145 mmol/L Potassium Level 2.6 L 3.5-5.1 mmol/L Chloride Level 107 98-107 mmol/L Carbon Dioxide Level 19 L 20-31 mmol/L Anion Gap 11 5-15 Blood Urea Nitrogen 11 9-23 mg/dL Creatinine 1.13 0.700-1.30 mg/dL Glomerular Filtration Rate Calc 80 >90 mL/min BUN/Creatinine Ratio 9.7 L 10.0-20.0 Serum Glucose 107 H 74-106 mg/dL Lactic Acid Level 2.0 0.4-2.0 mmol/L Calcium Level 8.1 L 8.7-10.4 mg/dL Magnesium Level 1.7 1.6-2.6 mg/dL Troponin I High Sensitivity 703 *H </=54 ng/L Urine Color Yellow Yellow Urine Clarity Clear Clear Urine pH 6.0 5.0-9.0 Urine Specific [place] 1.021 1.001-1.035 Urine Protein 1+ H Negative Urine Ketones 2+ H Negative Urine Blood 1+ H Negative /uL Urine Nitrite Negative Negative Urine Bilirubin Negative Negative Urine Urobilinogen Normal Negative mg/dL Urine Leukocyte Esterase Negative Negative /uL Urine RBC 5 0 - 3 /hpf Urine Microscopic WBC 1 0-3 /HPF Urine Squamous Epithelial Cells Few <5 /hpf Urine Bacteria None seen None Seen /hpf Urine Hyaline Casts Few 0 - 2 /lpf Urine Glucose Normal Normal mg/dL Test 05/30/24 22:45 Range/Units Total Bilirubin 1.0 0.2-1.0 mg/dL Aspartate Amino Transferase (AST) 56 H 13-40 U/L Alanine Aminotransferase (ALT) 42 H 7-40 U/L Alkaline Phosphatase 513 H 46-116 U/L Total Protein 7.4 5.7-8.2 g/dL Albumin 4.0 3.2-4.8 g/dL Assessment cdiff colitis septic shock on pressor support LBBB nstemi hypokalemia Plan/Recommendation IVF pressors as needed abx--vanco per hospitalistk check echo to r/o cardiomyopathy given lbbb type 2 nstemi, no anticoag for now, no chest pain will eventually need cv workup once improved given hx of LBBB 40 mins critical care etime spent Plan discussed with: Patient, Other (rn) ALEENA ROACH MD May 31, 2024 12:34
--- NOTE | 2024-05-31 12:37 | DVHSR ---
APPROVED REPORT EXAM: Two-dimensional and M-mode echocardiogram with Doppler and color Doppler. Blood Pressure: 109/66 mmHg INDICATION NSTEMI RISK FACTORS Height: 74, Weight: 193 DIMENSIONS LVDd5.7 (3.8-5.7cm)LA (2D)4.2 (1.9-4.0cm)Aortic Root3.7 (2.0-3.7cm) LVDs5.0 (2.5-4.0cm)LA (MM) (1.9-4.0cm)Aortic Cusp Exc2.0 (1.5-2.0cm) EF (%) 25.0 (55-70%)Rt. Atrium4.5 (1.9-4.0cm)Asc. Aorta cm IVSd1.0 (0.7-1.1cm)RV (D) (1.8-2.4cm) PWd0.8 (0.7-1.1cm) Mitral Valve MitralMitral Stenosis E wave0.80m/sMV Mean GR.mmHg A wave1.00m/sMV Peak GR.110mmHg E/A ratio0.82D MVAcm2 DECEL [id number] 1/2 Qcfs69ls IVRTmsDop MVA3.92cm2 Aortic Valve Aortic ValveAortic Stenosis V10.97m/Sharad Mean GR.4mmHg V21.31m/Sharad Peak GR.7mmHg LVOT Diameter2.2 (1.8-2.4cm)Doppler AVA2.81cm2 Pulmonic Valve V20.82m/s Tricuspid Valve TR Velocity2.30m/s [id number] Other Information Technically limited study due to body habitus and patient laying flat on his back. Conclusion lvef 25-30% by visual estimate abnormal septal motion c/w LBBB dilated LV normal RV function left atrium mild enlarged no severe valve abnormalities noted
--- NOTE | 2024-05-31 15:56 | MEDREC ---
[facility] Intervention Section I [facility] Intervention: Review courses of therapy (PLEASE CONSIDER D/C VANCOMYCIN IV PER RX PROTOCOL SINCE IT IS NOT AN APPROPRIATE ROUTE OF ADMINISTRATION FOR C.DIFF TREATMENT) JESSICA RAO PHARMACIST May 31, 2024 15:56
[2024-05-31] MEDS: cefTRIAXone 2GM/50ML D5W 50 ML IV ONE (16:10)
[2024-05-31] MEDS: AZITHROMYCIN 500MG/ 250ML 250 ML IV ONE (16:58)
[2024-05-31] MEDS ORDERED: VANCOMYCIN HCL 250 MG CAP PO SCH (18:00)
--- NOTE | 2024-05-31 18:46 | CONS ---
Pharmacy Clinical Information: QTc = 501, consider changing azithromycin to doxycycline TRES BISWAS PHARMACIST May 31, 2024 18:46
[2024-05-31] MEDS: VANCOMYCIN HCL 250 MG CAP PO SCH (19:00)
--- NOTE | 2024-05-31 19:06 | DVHINCON2 ---
SAIDA MONROE RESIDENT 05/31/24 1906: Date of service: May 31, 2024 Referring Physician Adam Reason for Consultation Sepsis History of Present Illness Patient is a 48-year-old male with past medical history of malignant melanoma, diffuse colitis, esophagitis, receiving immunotherapy and received radiation therapy for same who came to the hospital with a chief complaint of worsening diarrhea over the past three weeks, as per patient he continued to have watery diarrhea , and he was recently diagnosed with C diff and start taking oral vancomycin few days however he continued to feel generalized weak, fatigued, not able to move around that leads to call ambulance to come to the hospital. Patient also complaining of fever of greater than 100 F at home, however not complaining of feeling feverish at the time of evaluation, continued to have today at least 3-4 bowel movements, during hospitalization patient continued to be on vasopressor to maintain blood pressure, IV fluid, started on oral vancomycin. CT scan of the abdomen pelvis suspicious for diarrhea and acute colitis. Stool culture came back positive for Campylobacter. No any other complaints from patient. Past Medical History Thyroidism, hyperlipidemia, melanoma with metastasis, H pylori infection, diffu se colitis Past Surgical History Cholecystectomy, gastric bypass Family History: Asthma G8 SISTER, Onset:Unknown Hypercholesterolemia G8 MOTHER, Onset:Unknown Hypertension G8 MOTHER, Onset:Unknown Family History As per HPI Social History As per HPI Allergies: Coded Allergies: Amoxicillin (Verified Allergy, Severe, 12/31/21) Ciprofloxacin (Verified Allergy, Severe, projectile vomiting, weakness, shaking, 01/16/24) Penicillins (Verified Allergy, Unknown, 12/31/21) Allergies As per HPI Home Meds Active Scripts Hydrocortisone Acetate (Anusol-Hc) 25 Mg Sup, 1 SUPP PA BID, #14 SUPP Prov:AMARILIS KINCAID MD 02/28/24 Tamsulosin Hcl (Flomax) 0.4 Mg Cap, 1 CAP PO DAILY, #30 CAP 11 Refills Prov:AMARILIS KINCAID MD 02/28/24 Sulfamethoxazole W/Trimethopri (Bactrim Ds Tablet) 1 Tab Tb, 1 TAB PO BID for 7 Days, #14 TAB Prov:LEONEL TERRY MD 01/16/24 Acetaminophen (Tylenol Extra Strength) 500 Mg Tab, 1000 MG PO Q6HP PRN, #30 TAB prn fever or pain Prov:MANUEL GOMEZ MD 01/16/24 Simethicone (Simethicone) 80 Mg Chw, 2-4 TAB PO Q6HP PRN, #30 TAB.CHEW prn gas Prov:MANUEL GOMEZ MD 01/16/24 Metronidazole (Flagyl) 500 Mg Tab, 1 TAB PO TID for 10 Days, #30 TAB Prov:MANUEL GOMEZ MD 01/16/24 Cephalexin ( Keflex 500) 500 Mg Cap, 1 CAP PO QID PRN, #40 CAP Prov:FREDDY PALOMARES 02/19/22 Megestrol Acetate (Appetite) (Megestrol Acetate) 625 Mg/5 Ml Pilar, 625 MG PO DAILY PRN for 30 Days, #30 EA Prov:MALATHI LEBRON MD 01/14/22 Midodrine HCl (Midodrine HCl) 10 Mg Tab, 10 MG PO TID@0600,1200,1800 for 30 Days, #90 TAB Prov:MALATHI LEBRON MD 01/13/22 Loperamide HCl (Loperamide HCl) 2 Mg Tab, 2 MG PO Q2HPRN PRN, #40 TAB Prov:TAQUERIA HERNANDEZ MD 09/30/18 Potassium Chloride (Potassium Chloride ER) 20 Meq Tab, 20 MEQ PO DAILY, #3 Prov:TAQUERIA HERNANDEZ MD 09/29/18 Reported Medications Sumatriptan Succinate (Sumatriptan Succinate) 100 Mg Tab, 100 MG PO PRN, MG 01/01/22 Cholecalciferol (KP VITAMIN D) 1,000 Unit Cap, 5000 UNIT PO DAILY, CAP 01/01/22 Levothyroxine Sodium (Levothyroxine Sodium) 50 Mcg Tab, 50 MCG PO QAM for 30 Days, MCG 01/01/22 Cholestyramine (QUESTRAN POWDER) 4 Gm Pw, 4 GM PO BID 09/28/18 Diphenoxylate W/ Atropine (Lomotil) 2.5 Mg Tab, 2 TAB PO TID PRN for FOR DIARRHEA, #30 TAB 09/28/18 Pantoprazole Sodium Sesquihydr (Protonix) 40 Mg Tab, 40 MG PO DAILY, #30 TAB 09/28/18 Famotidine (PEPCID TABLET) 20 Mg Tb, 1 TAB PO HS, #60 TAB 5 Refills 09/28/18 Simvastatin (Simvastatin) 5 Mg Tab, 5 MG PO HS, TAB 08/17/18 Prochlorperazine Maleate (Compazine) 10 Mg Tb, 0.5 TAB PO TID, #30 TAB 3 Refills 08/17/18 Current Medications Current Medications Medications (Trade) Dose Ordered Sig/Amanda Route PRN Reason Start Time Stop Time Status Last Admin Norepinephrine Bitartrate 250 ml @ 3.75 mls/hr Q24H IV 05/31/24 01:15 05/31/24 15:30 Dopamine HCl/ Dextrose 250 ml @ 16.444 mls/ hr [id number] IV 05/31/24 02:30 05/31/24 02:45 Nitroglycerin (Ntrostat Sublingual) 0.4 mg Q5MINP PRN SL FOR CHEST PAIN 05/31/24 04:30 Morphine Sulfate 2 mg Q30M PRN IV FOR CHEST PAIN 05/31/24 04:30 Vancomycin HCl 0 ml @ 0 mls/hr UD IV 05/31/24 04:30 05/31/24 15:51 DC Ceftriaxone Sodium 50 ml @ 100 mls/hr DAILY IV 05/31/24 10:00 05/31/24 04:46 DC Ondansetron HCl (Zofran) 4 mg Q6HP PRN IV NAUSEA / VOMITING 05/31/24 04:30 Atorvastatin Calcium (Lipitor) 40 mg HS PO 05/31/24 22:00 Pantoprazole Sodium (Protonix) 40 mg DAILY IV 05/31/24 10:00 05/31/24 10:03 Aspirin (Ecotrin Enteric Coated Tablet) 81 mg DAILY PO 05/31/24 10:00 05/31/24 10:04 Sodium Chloride 1,000 ml @ 125 mls/hr Q8H IV 05/31/24 04:30 05/31/24 12:30 Enoxaparin Sodium (Lovenox) 90 mg Q12HR SC 05/31/24 10:00 05/31/24 16:45 DC 05/31/24 10:06 Metronidazole 100 ml @ 100 mls/hr Q8HR IV 05/31/24 06:00 05/31/24 15:51 DC 05/31/24 13:54 Vasopressin 20 units/Sodium Chloride 100 ml @ 9 mls/hr Q11H7M IV 05/31/24 07:30 05/31/24 14:30 Vancomycin HCl (Vancomycin Hydrochloride) 250 mg QID PO 05/31/24 18:00 05/31/24 15:55 DC Vancomycin HCl (Vancomycin Hydrochloride) 500 mg QID PO 05/31/24 18:00 Hold Ceftriaxone Sodium/Dextrose 50 ml @ 50 mls/hr DAILY@0900 IV 06/01/24 09:00 Azithromycin 250 ml @ 125 mls/hr DAILY IV 06/01/24 10:00 Vancomycin HCl 0 ml @ 0 mls/hr UD IV 06/01/24 10:00 UNV Review of Systems general : worsening diarrhea for past three weeks, worsening generalized weakness, low energy, not able to move around, feels thirsty, generalized body ache gastrointestinal : worsening diarrhea for past three weeks Other review of system negative. Vital Signs Vital Signs Date Time Temp Pulse Resp B/P (MAP) Pulse Ox O2 Delivery O2 Flow Rate FiO2 05/31/24 18:30 96/54 05/31/24 18:30 101 29 93 05/31/24 08:28 Nasal Cannula* 4 36 05/31/24 07:15 98.9 98.9 Physical Exam general appearance : Tired,Generalized weakness cardiovascular : Tachycardia,Sinus rhythm,No murmurs gastrointestinal : Soft abdomen,Presence of bowel sounds neurological : Normal neurological examination musculoskeletal : Lower extremity sensory and motor intact Labs/Diagnostic Data Labs Test 05/31/24 13:41 05/31/24 11:43 05/31/24 08:38 05/31/24 04:52 Range/Units Potassium Level 3.9 3.5-5.1 mmol/L Stool for White Cells Moderate POC Glucose 94 70-106 mg/dl White Blood Count 20.0 #H 4.4-10.8 10^3/uL Red Blood Count 3.78 L 4.5-5.90 10^6/uL Hemoglobin 10.9 L 13.5-17.5 g/dL Hematocrit 33.5 L 41.0-53.0 % Mean Corpuscular Volume 88.6 80.0-100.0 fL Mean Corpuscular Hemoglobin 28.9 28.0-32.0 pg Mean Corpuscular Hemoglobin Concent 32.6 32.0-36.0 g/dL Red Cell Distribution Width 14.8 H 11.8-14.3 % Platelet Count 503 H 140-450 10^3/uL Mean Platelet Volume 6.9 6.9-10.8 fL Neutrophils (%) (Auto) 77.3 37.0-80.0 % Lymphocytes (%) (Auto) 9.9 L 10.0-50.0 % Monocytes (%) (Auto) 9.4 0.0-12.0 % Eosinophils (%) (Auto) 2.9 0.0-7.0 % Basophils (%) (Auto) 0.5 0.0-2.0 % Neutrophils # (Auto) 15.4 H 1.6-8.6 10 ^3/uL Lymphocytes # (Auto) 2.0 0.4-5.4 10 ^3/uL Monocytes # (Auto) 1.9 H 0-1.3 10 ^3/uL Eosinophils # (Auto) 0.6 0-0.8 10 ^3/uL Basophils # (Auto) 0.1 0-0.2 10 ^3/uL Nucleated Red Blood Cells 0.0 % Sodium Level 137 136-145 mmol/L Chloride Level 107 98-107 mmol/L Carbon Dioxide Level 19 L 20-31 mmol/L Anion Gap 11 5-15 Blood Urea Nitrogen 11 9-23 mg/dL Creatinine 1.13 0.700-1.30 mg/dL Glomerular Filtration Rate Calc 80 >90 mL/min BUN/Creatinine Ratio 9.7 L 10.0-20.0 Serum Glucose 107 H 74-106 mg/dL Lactic Acid Level 2.0 0.4-2.0 mmol/L Calcium Level 8.1 L 8.7-10.4 mg/dL Magnesium Level 1.7 1.6-2.6 mg/dL Troponin I High Sensitivity 703 *H </=54 ng/L Test 05/31/24 02:16 05/30/24 22:45 Range/Units Urine Color Yellow Yellow Urine Clarity Clear Clear Urine pH 6.0 5.0-9.0 Urine Specific [place] 1.021 1.001-1.035 Urine Protein 1+ H Negative Urine Ketones 2+ H Negative Urine Blood 1+ H Negative /uL Urine Nitrite Negative Negative Urine Bilirubin Negative Negative Urine Urobilinogen Normal Negative mg/dL Urine Leukocyte Esterase Negative Negative /uL Urine RBC 5 0 - 3 /hpf Urine Microscopic WBC 1 0-3 /HPF Urine Squamous Epithelial Cells Few <5 /hpf Urine Bacteria None seen None Seen /hpf Urine Hyaline Casts Few 0 - 2 /lpf Urine Glucose Normal Normal mg/dL Total Bilirubin 1.0 0.2-1.0 mg/dL Aspartate Amino Transferase (AST) 56 H 13-40 U/L Alanine Aminotransferase (ALT) 42 H 7-40 U/L Alkaline Phosphatase 513 H 46-116 U/L Total Protein 7.4 5.7-8.2 g/dL Albumin 4.0 3.2-4.8 g/dL Microbiology Date/Time Source Procedure Growth Status 05/31/24 11:43 Stool Stool Culture - Preliminary Resulted 05/31/24 11:43 Stool Shiga Toxin I & II - Final Resulted Assessment Septic shock Hypovolemic shock Acute colitis ? Due to C diff infection, immunotherapy or radiation therapy induced Acute diarrhea ? C diff infection NSTEMI type 2 likely due to shock Lactic acidosis Severe dehydration Hypokalemia Left bundle branch block Prolonged QTC Plan/recommendation -continue IV antibiotic with ceftriaxone and vancomycin for septic shock, pending panculture including urine culture, sputum culture, blood culture. -Continue oral vancomycin 500 mg q.i.d. for C diff, sent out left for C diff toxin a and B EIA. -patient came positive for Campylobacter, negative for shiga toxin. Continue IV azithromycin 500 mg once daily, recommend continue follow-up daily EKG for prolonged QTC. -Rigorous IV fluid resuscitation. -CT abdominal pelvis:Findings are suspicious for diarrhea/ colitis. -recommend Hematology Oncology consultation given possible diarrhea likely due to immunotherapy and radiation, patient receives treatment Hematology Oncology Service at [facility] [place] -continue cardiology recommendation: Prolonged QTC, LBB, we will in continue azithromycin for now, continue to monitor QTC, recommend regular daily EKG. -recommend stress dose corticosteroids, as per patient he takes hydrocortisone 10 mg p.o. twice daily for adrenal insufficiency. -continue closely follow up. -rest of the management as per primary care team Plan discussed with: Patient, Other (RN) DEBORAH MÉNDEZ MD 06/03/24 [id number]: Family History: Asthma G8 SISTER, Onset:Unknown Hypercholesterolemia G8 MOTHER, Onset:Unknown Hypertension G8 MOTHER, Onset:Unknown Allergies: Coded Allergies: Amoxicillin (Verified Allergy, Severe, 12/31/21) Ciprofloxacin (Verified Allergy, Severe, projectile vomiting, weakness, shaking, 01/16/24) Penicillins (Verified Allergy, Unknown, 12/31/21) Home Meds Active Scripts Hydrocortisone Acetate (Anusol-Hc) 25 Mg Sup, 1 SUPP PA BID, #14 SUPP Prov:AMARILIS KINCAID MD 02/28/24 Tamsulosin Hcl (Flomax) 0.4 Mg Cap, 1 CAP PO DAILY, #30 CAP 11 Refills Prov:AMARILIS KINCAID MD 02/28/24 Sulfamethoxazole W/Trimethopri (Bactrim Ds Tablet) 1 Tab Tb, 1 TAB PO BID for 7 Days, #14 TAB Prov:LEONEL TERRY MD 01/16/24 Acetaminophen (Tylenol Extra Strength) 500 Mg Tab, 1000 MG PO Q6HP PRN, #30 TAB prn fever or pain Prov:MANUEL GOMEZ MD 01/16/24 Simethicone (Simethicone) 80 Mg Chw, 2-4 TAB PO Q6HP PRN, #30 TAB.CHEW prn gas Prov:MANUEL GOMEZ MD 01/16/24 Metronidazole (Flagyl) 500 Mg Tab, 1 TAB PO TID for 10 Days, #30 TAB Prov:MANUEL GOMEZ MD 01/16/24 Cephalexin ( Keflex 500) 500 Mg Cap, 1 CAP PO QID PRN, #40 CAP Prov:FREDDY PALOMARES 02/19/22 Megestrol Acetate (Appetite) (Megestrol Acetate) 625 Mg/5 Ml Pilar, 625 MG PO DAILY PRN for 30 Days, #30 EA Prov:MALATHI LEBRON MD 01/14/22 Midodrine HCl (Midodrine HCl) 10 Mg Tab, 10 MG PO TID@0600,1200,1800 for 30 Days, #90 TAB Prov:MALATHI LEBRON MD 01/13/22 Loperamide HCl (Loperamide HCl) 2 Mg Tab, 2 MG PO Q2HPRN PRN, #40 TAB Prov:TAQUERIA HERNANDEZ MD 09/30/18 Potassium Chloride (Potassium Chloride ER) 20 Meq Tab, 20 MEQ PO DAILY, #3 Prov:TAQUERIA HERNANDEZ MD 09/29/18 Reported Medications Sumatriptan Succinate (Sumatriptan Succinate) 100 Mg Tab, 100 MG PO PRN, MG 01/01/22 Cholecalciferol (KP VITAMIN D) 1,000 Unit Cap, 5000 UNIT PO DAILY, CAP 01/01/22 Levothyroxine Sodium (Levothyroxine Sodium) 50 Mcg Tab, 50 MCG PO QAM for 30 Days, MCG 01/01/22 Cholestyramine (QUESTRAN POWDER) 4 Gm Pw, 4 GM PO BID 09/28/18 Diphenoxylate W/ Atropine (Lomotil) 2.5 Mg Tab, 2 TAB PO TID PRN for FOR DIARRHE A, #30 TAB 09/28/18 Pantoprazole Sodium Sesquihydr (Protonix) 40 Mg Tab, 40 MG PO DAILY, #30 TAB 09/28/18 Famotidine (PEPCID TABLET) 20 Mg Tb, 1 TAB PO HS, #60 TAB 5 Refills 09/28/18 Simvastatin (Simvastatin) 5 Mg Tab, 5 MG PO HS, TAB 08/17/18 Prochlorperazine Maleate (Compazine) 10 Mg Tb, 0.5 TAB PO TID, #30 TAB 3 Refills 08/17/18 Assessment _ Attending Addendum: Case discussed with Dr. Monroe. at the time of visit. Seen by Dr Monroe and reviewed assessment and plan . patient is a 48 year old male with a past medical history of malignant melanoma and malignancies on the thigh and diffuse colitis of prior infectious ideologies, esophagitis , on immuno therapy , adrenal insufficiency . taking hydrochloric 2x a day and is on Yurvy immunotherapy and radiation . presents with worsening diarrhea for last 3 weeks , watery and was recently diagnosed with C diff infection 6 months ago and was on vancomycin but continued to have weakness. Patient states had positive C diff test at outpatient facility but was unable to confirm this. temp of 100 at home and now currently on levofed and vasopressin to maintain blood pressures and started on oral vancomycin. Has surgical history of cholecystectomy and gastric bypass and is allergic to penicillins and ciprofloxacin . Patient was tachycardic to 101 and having a fever as high as 99.5 and requiring levofed to keep MAPS in the 60s . whitecount was 14.1, hemoglobin 111 , platelet count 462 , BUN of 8. On physical exam patient was malnourished , weak , diaphoretic with hyperactive bowel sounds and having diarrhea. Patient has been admitted for septic shock . other problems listed on patients problem list include: malignant melanoma , hypovolemic shock , possible c diff infection , acute colitis , acute diarrhea , lactic acidosis , severe dehydration, left branch block . prolonged QTC above [address] abdomen and pelvis shows patient with finding of moderate diffuse fluid filled distended loops of the colon , moderate colonic ball wall thickening involving the descending colon. finding concerning for diarrhea and colitis . Plan would be to follow up on stool culture , was notified by lab that stool is positive for camperabactor antigen so will start patient on azithromycin 500 milligrams daily, will require a prolonged course given he is immunocompromised . Continue hydrocortisone , recommend endocrinology consult to see if patients in need of stressosteroids , recommend consulting hematology and oncology to evaluate chemotherapy and or immunotherapy is resulting in patients diarrhea and colitis symptoms . follow up on blood and urine cultures givent hat patient is immunocompromised from recent chemotherapy would continue patient on broadened antibiotic therapy with vancomycin and cefepime , continue IV flagyl . NPO vancomycin for presumed c diff colitis until results have returned . defer management of Nstemy to primary team. Saw Patient with Dr. Monroe and reviewed Dr Leal finding , assessment and plan . did a 12 point review of systems and patient was found positive for fever, diarrhea and other relevant findings from Dr. Monroe . Assessment and Plan reviewed with Dr. Monroe and agree with finding written above SAIDA MONROE RESIDENT May 31, 2024 19:06 DEBORAH MÉNDEZ MD Jun 03, 2024 16:49
[2024-05-31 19:20] VITALS: PULSE 99; RESP 20; O2SAT 97
[2024-05-31] MEDS: VANCOMYCIN 750MG KIT 100 ML IV SCH (20:49)
[2024-05-31] MEDS: ATORVASTATIN 20 MG TAB PO SCH (21:40)
--- NOTE | 2024-05-31 21:40 | DVHINCON2 ---
DATE OF CONSULTATION: 05/31/2024 GASTROENTEROLOGY CONSULTATION REFERRING PHYSICIAN: Dr. Jim Givens. REASON FOR CONSULTATION: Evaluation of hypovolemic shock, sepsis and suspected C. diff related diarrhea. HISTORY OF PRESENT ILLNESS: The patient is a 48-year-old male with past medical history significant for gastroesophageal reflux, hyperlipidemia, metastatic melanoma, hypothyroidism, H. pylori, gastroduodenoscopy with reconstruction Billroth 1 fashion, who was admitted for evaluation of acute onset diarrhea and generalized weakness. The patient states he has been having diarrheal symptoms for the past 3-1/2 weeks. He reports having 3-5 loose watery, nonbloody bowel movements per day associated with generalized weakness. He went to the [facility] this past Thursday and was seen by the ER physician where he provided a stool sample. The patient was notified at 11:30 at night this past Thursday that he had Clostridium difficile. He was given a prescription for oral vancomycin, loperamide and dicyclomine. Due to persistent symptoms, the patient went back to [facility] this past Thursday night and was discharged from there. He returns to the hospital now with worsening diarrhea. The patient also reports having chills, but denies any fevers. On arrival to the hospital, he was found to have a white blood cell count of 14.1 and has since increased to 20,000, hemoglobin is 11.0, hematocrit 34.2, platelet count is 462,000. Fecal occult blood test shows fecal leukocytes. Basic basic metabolic panel shows sodium is 137, potassium 2.6, chloride 107, bicarbonate 19, BUN 11, creatinine 1.13. Abdominal pelvic CT scan obtained on admission was significant for diffuse fluid-filled distended loops of bowel with moderate colon wall bowel thickening involving the descending colon. The remainder of the abdominal CT is unremarkable. The patient is known to our practice as he was previously seen for evaluation of intractable nausea and vomiting dating back to 2020. The patient has a history of a partial antrectomy with a gastroduodenostomy reconstruction Billroth 1 fashion. This was secondary to a gastric outlet obstruction from peptic ulcer disease. Gastroenterology service has been asked for input regarding his symptoms. DRUG ALLERGIES: AMOXICILLIN, CIPROFLOXACIN, PENICILLIN. PAST MEDICAL HISTORY: Reflux, hyperlipidemia, nausea, metastatic melanoma, hypothyroidism, H. pylori. PAST SURGICAL HISTORY: He has had a thumb amputation. He has had a colonoscopy in July 2018, EGD in August of 2020, bladder surgery, bilateral inguinal hernia repair, EGD in 03/2019, pyloric sphincter surgery for gastric outlet obstruction secondary to peptic ulcer disease in 2020. FAMILY HISTORY: Parents are . He had a paternal grandfather of colon cancer. REVIEW OF SYSTEMS: A 12-point review of systems is limited, but as stated in the HPI. PHYSICAL EXAMINATION: VITAL SIGNS: Temperature is afebrile, heart rate is 104, respirations 32, blood pressure is 86/47, O2 saturation 95%. GENERAL: This is a very ill-appearing 48-year-old male. He is awake, alert, oriented x3. HEENT: Unremarkable. CARDIOVASCULAR: Tachycardic, otherwise regular rhythm. RESPIRATORY: Clear to auscultation. GASTROINTESTINAL: Soft, nontender, nondistended. EXTREMITIES: No clubbing, no cyanosis or edema. LABORATORY EXAMINATION: Sodium 137, potassium 2.6, chloride 107, bicarbonate 19, BUN is 11, creatinine is 1.13, blood glucose is 107. Troponin is 703. White blood cell count 20, hemoglobin 10.9, hematocrit 33.5, MCV is 88.6, platelet count is 502,000. FOBT is positive for fecal leukocytes. Imaging as summarized above in the HPI. Chest x-ray is essentially unremarkable. ASSESSMENT: * Clostridium difficile related colitis. * Sepsis. * Hypovolemia. * Hypokalemia secondary to diarrhea. * Non-ST segment elevation myocardial infarction. * Leukocytosis secondary to infectious etiology. * Personal history of distal antrectomy with Billroth 1 reconstruction. * Reflux. * Hyperlipidemia. * History of metastatic melanoma. RECOMMENDATION: * Agree with oral vancomycin therapy. Discontinue intravenous Flagyl. * We will hold any antidiarrheals at this time. Agree with Bentyl. * Volume resuscitation with IV fluid hydration. * Keep n.p.o. * Monitor serial abdominal x-ray to exclude toxic megacolon. * General surgery evaluation. * Overall prognosis remains guarded. DO STACIA Willard/MCKINLEY TID: [id number] RECEIPT: [id number]
[2024-06-01] MEDS: VASOPRESSIN 20 UNIT/ML ONE (01:00)
[2024-06-01 06:51] LABS: Anion Gap 9 (5-15); Carbon Dioxide 21 mmol/L (20-31); Potassium 3.8 mmol/L (3.5-5.1); Sodium 137 mmol/L (136-145)
[2024-06-01 06:57] LABS: BUN/Creatinine Ratio 8.7 (10.0-20.0); Glucose 81 mg/dL (74-106)
[2024-06-01 07:01] LABS: Basophils # (auto) 0 10 ^3/uL (0-0.2); Basophils % (auto) 0.5 % (0.0-2.0); Eosinophils # (auto) 0.4 10 ^3/uL (0-0.8); Eosinophils % (auto) 4.2 % (0.0-7.0); Hematocrit 31.5 % (41.0-53.0); Hemoglobin 10.2 g/dL (13.5-17.5); Mean Corpuscular Hemoglobin 28.6 pg (28.0-32.0); Mean Corpuscular Hgb Conc. 32.5 g/dL (32.0-36.0); Mean Corpuscular Volume 87.8 fL (80.0-100.0); Monocytes # (auto) 1.3 10 ^3/uL (0-1.3); Monocytes % (auto) 13.6 % (0.0-12.0); Neutrophils % (auto) 71.7 % (37.0-80.0); Platelet Count (auto) 420 10^3/uL (140-450); Red Blood Cells 3.59 10^6/uL (4.5-5.90); Red Cell Distribution Width 14.7 % (11.8-14.3); White Blood Cell 9.8 10^3/uL (4.4-10.8)
[2024-06-01 07:03] LABS: Blood Urea Nitrogen 8 mg/dL (9-23); Calcium 8.2 mg/dL (8.7-10.4); Chloride 107 mmol/L (98-107)
[2024-06-01 07:40] VITALS: PULSE 94; RESP 22; O2SAT 98
[2024-06-01] MEDS: cefTRIAXone 2GM/50ML D5W 50 ML IV SCH (09:14)
[2024-06-01] MEDS ORDERED: VANCOMYCIN PER PHARMACY 0 MG IV SCH (10:00)
[2024-06-01] MEDS: AZITHROMYCIN 500MG/ 250ML 250 ML IV SCH (10:23)
--- NOTE | 2024-06-01 11:25 | DVH ---
Date: 06/01/2024 11:01 AM Examination: XY KUB ABDOMEN SINGLE VIEW History: toxic megacolon Comparison: None TECHNIQUE: Frontal views of the abdomen was obtained. FINDINGS: Diffusely prominent loops of small bowel measuring up to 6.5 cm. The lung bases are unremarkable. No acute osseous abnormality identified. IMPRESSION: Diffusely prominent loops of small bowel measuring up to 6.5 cm.
[2024-06-01] MEDS: NOREPINEPHRINE BITARTRATE 16 MG in SODIUM CHL 0.9% 234 ML IV SCH (13:15)
--- NOTE | 2024-06-01 14:21 | DVHPN2 ---
Subjective Lead meds noted. Patient currently on 2 vasopressors. 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 Medications Current Medications Medications Dose Ordered Sig/Amanda Route Start Time Stop Time Status Last Admin Dose Admin Nitroglycerin 0.4 mg Q5MINP PRN SL 05/31/24 04:30 Morphine Sulfate 2 mg Q30M PRN IV 05/31/24 04:30 Ondansetron HCl 4 mg Q6HP PRN IV 05/31/24 04:30 Atorvastatin Calcium 40 mg HS PO 05/31/24 22:00 05/31/24 21:40 40 MG Pantoprazole Sodium 40 mg DAILY IV 05/31/24 10:00 06/01/24 10:23 40 MG Aspirin 81 mg DAILY PO 05/31/24 10:00 06/01/24 10:23 81 MG Sodium Chloride 1,000 ml @ 125 mls/hr Q8H IV 05/31/24 04:30 06/01/24 12:04 125 MLS/HR Vasopressin 20 units/Sodium Chloride 100 ml @ 9 mls/hr Q11H7M IV 05/31/24 07:30 06/01/24 14:03 9 MLS/HR Vancomycin HCl 500 mg QID PO 05/31/24 18:00 06/01/24 12:04 500 MG Ceftriaxone Sodium/Dextrose 50 ml @ 50 mls/hr DAILY@0900 IV 06/01/24 09:00 06/01/24 09:14 50 MLS/HR Azithromycin 250 ml @ 125 mls/hr DAILY IV 06/01/24 10:00 06/01/24 10:23 125 MLS/HR Vancomycin HCl 0 ml @ 0 mls/hr UD IV 06/01/24 10:00 Vancomycin HCl 100 ml @ 100 mls/hr Q12H IV 05/31/24 20:00 06/01/24 08:11 100 MLS/HR Midodrine 5 mg TID@0600,1200,1800 PO 06/01/24 18:00 Norepinephrine Bitartrate 16 mg/ Sodium Chloride 250 ml @ 1.875 mls/ hr Q24H IV 06/01/24 12:45 06/01/24 13:15 28.125 MLS/HR Laboratory Results Laboratory Tests 06/01/24 06:21 Chemistry Test 06/01/24 06:21 Calcium Level 8.2 mg/dL (8.7-10.4) L Urinalysis Test 05/31/24 02:16 Urine Color Yellow (Yellow) Urine Clarity Clear (Clear) Urine pH 6.0 (5.0-9.0) Urine Specific [place] 1.021 (1.001-1.035) Urine Protein 1+ (Negative) H Urine Ketones 2+ (Negative) H Urine Blood 1+ /uL (Negative) H Urine Nitrite Negative (Negative) Urine Bilirubin Negative (Negative) Urine Urobilinogen Normal mg/dL (Negative) Urine Leukocyte Esterase Negative /uL (Negative) Urine RBC 5 /hpf (0 - 3) Urine Microscopic WBC 1 /HPF (0-3) Urine Squamous Epithelial Cells Few /hpf (<5) Urine Bacteria None seen /hpf (None Seen) Urine Hyaline Casts Few /lpf (0 - 2) Urine Glucose Normal mg/dL (Normal) Microbiology Microbiology Date/Time Source Procedure Growth Status 05/31/24 11:43 Stool Stool Culture - Preliminary Resulted 05/31/24 11:43 Stool Shiga Toxin I & II - Final Resulted 05/31/24 02:16 Voided Urine Urine Culture - Preliminary Resulted 05/30/24 21:39 Blood Blood Culture - Preliminary NO GROWTH AFTER 24 HOURS OF INCUBATION. Resulted Assessment/Plan Assessment/Plan 48-year-old male with a known history of malignant melanoma, history of rectal fistula and fissures presented to the hospital with abdominal pain nausea vomiting found to have 1. Septic shock secondary to colitis 2. C diff colitis 3. Campylobacter enteritis 4. Left bundle branch block suspect NSTEMI type 2 5. Hypovolemic and septic shock 6. History of malignant Melanoma s/p surgery -continue vancomycin p.o. start midodrine 5 mg t.i.d. Titrate vasopressors Follow up Infectious Disease and GI recommendations - Plan discussed with: Patient My Orders Orders - MARLENA DIAZ MD Procedure Category Date Status Time Clear Liq Diet DIET 05/31/24 Transmitted Dinner Midodrine Tablet PHA 06/01/24 In Process (Proamatine Tablet) 18:00 Sodium Chl 0.9% PHA 06/01/24 In Process (Ns... 12:45 Communication Order ORDERS 06/01/24 Transmitted 13:09 Date of Service: Jun 01, 2024 Billing Provider: MARLENA DIAZ MD Common Visit Codes: NOT BILLABLE MARLENA DIAZ MD Jun 01, 2024 14:21
[2024-06-01] MEDS: MIDODRINE HCL 10 MG TAB PO SCH (18:12)
--- NOTE | 2024-06-01 19:11 | DVHPN2 ---
SAIDA RASMUSSEN RESIDENT 06/01/241909: Consult Progress Note Date Seen: Jun 01, 2024 Subjective Patient reports: No new complaints Other Systems: Patient continued to feel lethargic, and thirsty. Patient had 2-3 watery bowel movements. Continued to be on vasopressors levo and vasopressors. Being tachycardic, no any other new complaints. Physical Exam general appearance : Tired,Generalized weakness cardiovascular : Tachycardia,Sinus rhythm,No murmurs gastrointestinal : Soft abdomen,Presence of bowel sounds, distended abdomen. neurological : Normal neurological examination musculoskeletal : Lower extremity sensory and motor intact Objective vital signs Vital Sign Date Time Temp Pulse Resp B/P (MAP) Pulse Ox O2 Delivery O2 Flow Rate FiO2 06/01/24 19:00 95 24 127/66 (86) 97 06/01/24 18:00 98.0 98.0 06/01/24 07:40 Nasal Cannula* 3 32 Total Intake and Output 05/31/24 05/31/24 06/01/24 15:00 23:00 07:00 Intake Total 1977.00 ml 1752.75 ml 1000 ml Output Total 600 ml 625 ml 1400 ml Balance 1377.00 ml 1127.75 ml -400 ml medications Current Medications Medications Dose Ordered Sig/Amanda Route Start Time Stop Time Status Last Admin Dose Admin Nitroglycerin 0.4 mg Q5MINP PRN SL 05/31/24 04:30 Morphine Sulfate 2 mg Q30M PRN IV 05/31/24 04:30 Ondansetron HCl 4 mg Q6HP PRN IV 05/31/24 04:30 Atorvastatin Calcium 40 mg HS PO 05/31/24 22:00 05/31/24 21:40 40 MG Pantoprazole Sodium 40 mg DAILY IV 05/31/24 10:00 06/01/24 10:23 40 MG Aspirin 81 mg DAILY PO 05/31/24 10:00 06/01/24 10:23 81 MG Sodium Chloride 1,000 ml @ 125 mls/hr Q8H IV 05/31/24 04:30 06/01/24 12:04 125 MLS/HR Vasopressin 20 units/Sodium Chloride 100 ml @ 9 mls/hr Q11H7M IV 05/31/24 07:30 06/01/24 14:03 9 MLS/HR Vancomycin HCl 500 mg QID PO 05/31/24 18:00 2/5/25 18:12 500 MG Ceftriaxone Sodium/Dextrose 50 ml @ 50 mls/hr DAILY@0900 IV 06/01/24 09:00 06/01/24 09:14 50 MLS/HR Azithromycin 250 ml @ 125 mls/hr DAILY IV 06/01/24 10:00 06/01/24 10:23 125 MLS/HR Vancomycin HCl 0 ml @ 0 mls/hr UD IV 06/01/24 10:00 Vancomycin HCl 100 ml @ 100 mls/hr Q12H IV 05/31/24 20:00 06/01/24 08:11 100 MLS/HR Midodrine 5 mg TID@0600,1200,1800 PO 06/01/24 18:00 06/01/24 18:12 5 MG Norepinephrine Bitartrate 16 mg/ Sodium Chloride 250 ml @ 1.875 mls/ hr Q24H IV 06/01/24 12:45 06/01/24 13:15 28.125 MLS/HR laboratory and microbiology Laboratory Tests 06/01/24 06:21 Test 06/01/24 06:21 Range/Units Serum Glucose 81 74-106 mg/dL Problem List/Assessment/Plan Problem List/Assessment/Plan Septic shock Hypovolemic shock Acute colitis ? Due to C diff infection, immunotherapy or radiation therapy induced Acute diarrhea ? C diff infection NSTEMI type 2 likely due to shock Lactic acidosis Severe dehydration Hypokalemia Left bundle branch block Prolonged QTC Plan/recommendation -continue IV antibiotic with cefepime and vancomycin for septic shock, pending panculture including urine culture, sputum culture, blood culture. Given septic shock with underlying C diff infection, we will add IV Flagyl as well. -Continue oral vancomycin 500 mg q.i.d. for C diff, sent out left for C diff toxin a and B EIA. -patient came positive for Campylobacter, negative for shiga toxin. Continue IV azithromycin 500 mg once daily, recommend continue follow-up daily EKG for prolonged QTC. -Rigorous IV fluid resuscitation. -CT abdominal pelvis:Findings are suspicious for diarrhea/ colitis. -recommend Hematology Oncology consultation given possible diarrhea likely due to immunotherapy and radiation, patient receives treatment Hematology Oncology Service at [facility] [place] -continue cardiology recommendation: Prolonged QTC, LBB, we will in continue azithromycin for now, continue to monitor QTC, recommend regular daily EKG. -recommend stress dose corticosteroids, as per patient he takes hydrocortisone 10 mg p.o. twice daily for adrenal insufficiency. -continue closely follow up. -rest of the management as per primary care team Plan discussed with: Patient, Other (RN) DEBORAH MÉNDEZ MD 06/04/241950: Consult Progress Note Problem List/Assessment/Plan Problem List/Assessment/Plan _ Attending Addendum: Case discussed with Dr. Rasmussen. at the time of visit. Seen by Dr Rasmussen and reviewed assessment and plan . patient is a 48 year old male with a past medical history of malignant melanoma and malignancies on the thigh and diffuse colitis of prior infectious ideologies, esophagitis , on immuno therapy , adrenal insufficiency . taking hydrochloric 2x a day and is on Yurvy immunotherapy and radiation . presents with worsening diarrhea for last 3 weeks , watery and was recently diagnosed with C diff infection 6 months ago and was on vancomycin but continued to have weakness. Patient states had positive C diff test at outpatient facility but was unable to confirm this. temp of 100 at home and now currently on levofed and vasopressin to maintain blood pressures and started on oral vancomycin. Has surgical history of cholecystectomy and gastric bypass and is allergic to penicillins and ciprofloxacin . Patient was tachycardic to 101 and having a fever as high as 99.5 and requiring levofed to keep MAPS in the 60s . whitecount was 14.1, hemoglobin 111 , platelet count 462 , BUN of 8. On physical exam patient was malnourished , weak , diaphoretic with hyperactive bowel sounds and having diarrhea. Patient has been admitted for septic shock . other problems listed on patients problem list include: malignant melanoma , hypovolemic shock , possible c diff infection , acute colitis , acute diarrhea , lactic acidosis , severe dehydration, left branch block . prolonged QTC above [address] abdomen and pelvis shows patient with finding of moderate diffuse fluid filled distended loops of the colon , moderate colonic ball wall thickening involving the descending colon. finding concerning for diarrhea and colitis . Plan would be to follow up on stool culture , was notified by lab that stool is positive for camperabactor antigen so will start patient on azithromycin 500 milligrams daily, will require a prolonged course given he is immunocompromised . Continue hydrocortisone , recommend endocrinology consult to see if patients in need of stressosteroids , recommend consulting hematology and oncology to evaluate chemotherapy and or immunotherapy is resulting in patients diarrhea and colitis symptoms . follow up on blood and urine cultures givent hat patient is immunocompromised from recent chemotherapy would continue patient on broadened antibiotic therapy with vancomycin and cefepime , continue IV flagyl . NPO vancomycin for presumed c diff colitis until results have returned . defer management of Nstemy to primary team. 06/01: Patient is coming down off levofed and had 1 large bowel movement this morning but still watery , no fevers . whitecount is 9.8 and clinically patients abdomen is still distended therefore will continue patient on broad antibiotic treatments . continue vancomycin and cefepine, continue IV flagyl and vancomycin , azithromycin. recommend evaluation for hematology oncology to see if chemotherapy and immunotherapy is related to patient colitis and diarrhea symptoms Saw Patient with Dr. Rasmussen and reviewed Dr Leal finding , assessment and plan . did a 12 point review of systems and patient was found positive for fever, diarrhea and other relevant findings from Dr. Rasmussen . Assessment and Plan reviewed with Dr. Rasmussen and agree with finding written above Physical Exam general appearance : Tired,Generalized weakness cardiovascular : Tachycardia,Sinus rhythm,No murmurs gastrointestinal : Soft abdomen,Presence of bowel sounds neurological : Normal neurological examination musculoskeletal : Lower extremity sensory and motor intact SAIDA RASMUSSEN Jun 01, 2024 19:10 DEBORAH MÉNDEZ MD Jun 04, 2024 19:51
[2024-06-01 19:30] VITALS: PULSE 95; RESP 26; O2SAT 96
[2024-06-01] MEDS: CEFEPIME 2GM/50ML NS 50 ML IV SCH (22:35)
[2024-06-01] MEDS: metroNIDAZOLE 500MG/100ML 100 ML IV SCH (22:39)
[2024-06-02] MEDS: VASOPRESSIN 20 UNIT/ML ONE (02:49)
[2024-06-02] MEDS: NOREPINEPHRINE BITARTRATE 0 ML IV ONE (02:51)
[2024-06-02 05:42] LABS: Basophils # (auto) 0 10 ^3/uL (0-0.2); Basophils % (auto) 0.6 % (0.0-2.0); Eosinophils # (auto) 0.5 10 ^3/uL (0-0.8); Eosinophils % (auto) 8.7 % (0.0-7.0); Hematocrit 27.4 % (41.0-53.0); Hemoglobin 9.1 g/dL (13.5-17.5); Lymphocytes # (auto) 0.7 10 ^3/uL (0.4-5.4); Lymphocytes % (auto) 12.1 % (10.0-50.0); Mean Corpuscular Hgb Conc. 33.2 g/dL (32.0-36.0); Mean Corpuscular Volume 87.4 fL (80.0-100.0); Monocytes # (auto) 0.8 10 ^3/uL (0-1.3); Monocytes % (auto) 13.6 % (0.0-12.0); Neutrophils # (auto) 3.8 10 ^3/uL (1.6-8.6); Platelet Count (auto) 300 10^3/uL (140-450); Red Blood Cells 3.14 10^6/uL (4.5-5.90); Red Cell Distribution Width 14.5 % (11.8-14.3); White Blood Cell 5.8 10^3/uL (4.4-10.8)
[2024-06-02 06:03] LABS: Anion Gap 7 (5-15); Carbon Dioxide 24 mmol/L (20-31); Chloride 101 mmol/L (98-107)
[2024-06-02 06:10] LABS: Blood Urea Nitrogen < 5 mg/dL (9-23); Calcium 8.3 mg/dL (8.7-10.4); Glucose 69 mg/dL (74-106); Potassium 3.4 mmol/L (3.5-5.1); Sodium 132 mmol/L (136-145)
[2024-06-02 08:00] VITALS: PULSE 96; RESP 25; O2SAT 97
--- NOTE | 2024-06-02 10:00 | MEDREC ---
[facility] Intervention Section I [facility] Intervention: Deescalate AB based on CS (THE FINAL STOOL CULTURE ON 06/02 DETECTED CAMPYLOBACTER ANTIGEN, BUT NEGATIVE ON SHIGA TOXINS. PLEASE CONSIDER DISCONTINUING VANCOMYCIN PO IF THERE ARE NO NEW CONCERNS FOR C.DIFF INFECTION) ANGUS CAPPS Jun 02, 2024 10:00
[2024-06-02] MEDS: FAMOTIDINE (10MG/ML) 2ML VL IV SCH (11:06)
[2024-06-02] MEDS: SODIUM CHLORIDE 0.9% 250 ML IV SCH (11:45)
--- NOTE | 2024-06-02 12:42 | DVH ---
Date: 06/02/2024 11:45 AM Examination: XY KUB ABDOMEN SINGLE VIEW History: c diff Megacolon Comparison: XY KUB ABDOMEN SINGLE VIEW on DOS: 06/01/24 TECHNIQUE: Frontal views of the abdomen was obtained. FINDINGS: Bowel gas pattern is unremarkable. The lung bases are unremarkable. No acute osseous abnormality identified. IMPRESSION: Nonobstructive bowel gas pattern.
--- NOTE | 2024-06-02 15:02 | DVHPN2 ---
Subjective Overnight events noted. Patient currently on two vasopressors, continue with the midodrine, add hydrocortisone with a history of adrenal insufficiency as he takes hydrocortisone 10 mg p.o. twice a day at home. Otherwise still complaining of watery diarrhea. 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 Medications Current Medications Medications Dose Ordered Sig/Amanda Route Start Time Stop Time Status Last Admin Dose Admin Nitroglycerin 0.4 mg Q5MINP PRN SL 05/31/24 04:30 Morphine Sulfate 2 mg Q30M PRN IV 05/31/24 04:30 Ondansetron HCl 4 mg Q6HP PRN IV 05/31/24 04:30 Atorvastatin Calcium 40 mg HS PO 05/31/24 22:00 06/01/24 22:54 40 MG Aspirin 81 mg DAILY PO 05/31/24 10:00 06/02/24 09:51 81 MG Sodium Chloride 1,000 ml @ 125 mls/hr Q8H IV 05/31/24 04:30 06/02/24 12:46 125 MLS/HR Vasopressin 20 units/Sodium Chloride 100 ml @ 9 mls/hr Q11H7M IV 05/31/24 07:30 06/02/24 02:34 9 MLS/HR Vancomycin HCl 500 mg QID PO 05/31/24 18:00 06/02/24 12:16 500 MG Azithromycin 250 ml @ 125 mls/hr DAILY IV 06/01/24 10:00 06/02/24 09:52 125 MLS/HR Vancomycin HCl 0 ml @ 0 mls/hr UD IV 06/01/24 10:00 Midodrine 5 mg TID@0600,1200,1800 PO 06/01/24 18:00 06/02/24 12:16 5 MG Norepinephrine Bitartrate 16 mg/ Sodium Chloride 250 ml @ 1.875 mls/ hr Q24H IV 06/01/24 12:45 06/01/24 13:15 28.125 MLS/HR Cefepime HCl 50 ml @ 12.5 mls/hr Q8HR IV 06/01/24 22:00 06/02/24 13:34 12.5 MLS/HR Metronidazole 100 ml @ 100 mls/hr Q8HR IV 06/01/24 22:00 06/02/24 13:30 100 MLS/HR Vancomycin HCl 300 ml @ 200 mls/hr Q12H IV 06/02/24 20:00 Famotidine 20 mg Q12HR IV 06/02/24 10:00 06/02/24 11:06 20 MG Sodium Chloride 250 ml @ 250 mls/hr Q1H IV 06/02/24 11:45 06/02/24 13:45 250 MLS/HR Laboratory Results Laboratory Tests 06/02/24 04:40 Chemistry Test 06/02/24 04:40 Calcium Level 8.3 mg/dL (8.7-10.4) L Urinalysis Test 05/31/24 02:16 Urine Color Yellow (Yellow) Urine Clarity Clear (Clear) Urine pH 6.0 (5.0-9.0) Urine Specific [place] 1.021 (1.001-1.035) Urine Protein 1+ (Negative) H Urine Ketones 2+ (Negative) H Urine Blood 1+ /uL (Negative) H Urine Nitrite Negative (Negative) Urine Bilirubin Negative (Negative) Urine Urobilinogen Normal mg/dL (Negative) Urine Leukocyte Esterase Negative /uL (Negative) Urine RBC 5 /hpf (0 - 3) Urine Microscopic WBC 1 /HPF (0-3) Urine Squamous Epithelial Cells Few /hpf (<5) Urine Bacteria None seen /hpf (None Seen) Urine Hyaline Casts Few /lpf (0 - 2) Urine Glucose Normal mg/dL (Normal) Microbiology Microbiology Date/Time Source Procedure Growth Status 05/31/24 11:43 Stool Stool Culture - Final Complete 05/31/24 11:43 Stool Shiga Toxin I & II - Final Complete 05/31/24 02:16 Voided Urine Urine Culture - Final Complete 05/30/24 21:39 Blood Blood Culture - Preliminary NO GROWTH AFTER 48 HOURS OF INCUBATION. Resulted Assessment/Plan Assessment/Plan 48-year-old male with a known history of malignant melanoma, history of rectal fistula and fissures presented to the hospital with abdominal pain nausea vomiting found to have 1. Septic shock secondary to colitis 2. C diff colitis 3. Campylobacter enteritis 4. Left bundle branch block suspect NSTEMI type 2 5. Hypovolemic and septic shock 6. History of malignant Melanoma s/p surgery, [place] [facility] [place] 7. Adrenal insufficiency currently hydrocortisone 10 mg p.o. twice a day at home -add IV hydrocortisone 50 mg IV q.12 hours -continue vancomycin p.o. start midodrine 5 mg t.i.d. Titrate vasopressors Follow up Infectious Disease and GI recommendations - Plan discussed with: Patient My Orders Orders - MARLENA DIAZ MD Procedure Category Date Status Time Hydrocortisone PHA 06/02/24 Verified Succinate Inj 15:00 Date of Service: Jun 02, 2024 Billing Provider: MARLENA DIAZ MD Common Visit Codes: NOT BILLABLE MARLENA DIAZ MD Jun 02, 2024 15:02
[2024-06-02] MEDS: HYDROCORTISONE SOD SUCC 100 MG/2ML INJ VIAL IV SCH (16:46)
--- NOTE | 2024-06-02 19:06 | DVHPN2 ---
SAIDA RASMUSSEN RESIDENT 06/02/24 1906: Consult Progress Note Date Seen: Jun 02, 2024 Subjective Other Systems: Patient seen and examined at bedside. Continue requiring vasopressors, had two large watery diarrhea during nighttime. Patient continued complaining of distention of abdomen. No any other new complaints. Physical Exam general appearance : Tired,Generalized weakness cardiovascular : Tachycardia,Sinus rhythm,No murmurs gastrointestinal : Soft abdomen,Presence of bowel sounds, distended abdomen. neurological : Normal neurological examination musculoskeletal : Lower extremity sensory and motor intact Objective vital signs Vital Sign Date Time Temp Pulse Resp B/P (MAP) Pulse Ox O2 Delivery O2 Flow Rate FiO2 06/02/24 18:30 90 22 94/53 (67) 96 06/02/24 08:00 97.9 97.9 06/02/24 08:00 Nasal Cannula* 3 32 Total Intake and Output 06/01/24 06/01/24 06/02/24 15:00 23:00 07:00 Intake Total 1275 ml 1186.625 ml 1264.6550 ml Output Total 2650 ml Balance 1275 ml -1463.375 ml 1264.6550 ml medications Current Medications Medications Dose Ordered Sig/Amanda Route Start Time Stop Time Status Last Admin Dose Admin Nitroglycerin 0.4 mg Q5MINP PRN SL 05/31/24 04:30 Morphine Sulfate 2 mg Q30M PRN IV 05/31/24 04:30 Ondansetron HCl 4 mg Q6HP PRN IV 05/31/24 04:30 Atorvastatin Calcium 40 mg HS PO 05/31/24 22:00 06/01/24 22:54 40 MG Aspirin 81 mg DAILY PO 05/31/24 10:00 06/02/24 09:51 81 MG Sodium Chloride 1,000 ml @ 125 mls/hr Q8H IV 05/31/24 04:30 06/02/24 12:46 125 MLS/HR Vasopressin 20 units/Sodium Chloride 100 ml @ 9 mls/hr Q11H7M IV 05/31/24 07:30 06/02/24 02:34 9 MLS/HR Azithromycin 250 ml @ 125 mls/hr DAILY IV 06/01/24 10:00 06/02/24 09:52 125 MLS/HR Midodrine 5 mg TID@0600,1200,1800 PO 06/01/24 18:00 2/6/25 17:49 5 MG Norepinephrine Bitartrate 16 mg/ Sodium Chloride 250 ml @ 1.875 mls/ hr Q24H IV 06/01/24 12:45 06/01/24 13:15 28.125 MLS/HR Cefepime HCl 50 ml @ 12.5 mls/hr Q8HR IV 06/01/24 22:00 06/02/24 13:34 12.5 MLS/HR Famotidine 20 mg Q12HR IV 06/02/24 10:00 06/02/24 11:06 20 MG Sodium Chloride 250 ml @ 250 mls/hr Q1H IV 06/02/24 11:45 06/02/24 14:45 250 MLS/HR Hydrocortisone Sodium Succinate 50 mg Q12HR IV 06/02/24 15:00 06/02/24 16:46 50 MG Metronidazole 500 mg Q8HR PO 06/02/24 22:00 laboratory and microbiology Laboratory Tests 06/02/24 04:40 Test 06/02/24 04:40 Range/Units Serum Glucose 69 L 74-106 mg/dL Problem List/Assessment/Plan Problem List/Assessment/Plan Septic shock Hypovolemic shock Acute colitis ? Due to C diff infection, immunotherapy or radiation therapy induced Acute diarrhea ? C diff infection NSTEMI type 2 likely due to shock Lactic acidosis Severe dehydration Hypokalemia Left bundle branch block Prolonged QTC Plan/recommendation -continue IV antibiotic with cefepime and azithromycin. Discontinued vancomycin and metronidazole given C diff is negative. -patient came positive for Campylobacter, negative for shiga toxin. Continue IV azithromycin 500 mg once daily, recommend continue follow-up daily EKG for prolonged QTC. -Rigorous IV fluid resuscitation. And maintain map gradient 65, continued to be on vasopressor. -CT abdominal pelvis:Findings are suspicious for diarrhea/ colitis. -recommend Hematology Oncology consultation given possible diarrhea likely due to immunotherapy and radiation, patient [place] [facility] [place]ology recommendation: Prolonged QTC, LBB, we will in continue azithromycin for now, continue to monitor QTC, recommend regular daily EKG. -recommend stress dose corticosteroids, as per patient he takes hydrocortisone 10 mg p.o. twice daily for adrenal insufficiency. -continue closely follow up. -rest of the management as per primary care team Plan discussed with: Patient, Other (RN) DEBORAH MÉNDEZ MD 06/05/24 5519: Consult Progress Note Problem List/Assessment/Plan Problem List/Assessment/Plan _ Attending Addendum: Case discussed with Dr. Rasmussen. at the time of visit. Seen by Dr Rasmussen and reviewed assessment and plan . patient is a 48 year old male with a past medical history of malignant melanoma and malignancies on the thigh and diffuse colitis of prior infectious ideologies, esophagitis , on immuno therapy , adrenal insufficiency . taking hydrochloric 2x a day and is on Yurvy immunotherapy and radiation . presents with worsening diarrhea for last 3 weeks , watery and was recently diagnosed with C diff infection 6 months ago and was on vancomycin but continued to have weakness. Patient states had positive C diff test at outpatient facility but was unable to confirm this. temp of 100 at home and now currently on levofed and vasopressin to maintain blood pressures and started on oral vancomycin. Has surgical history of cholecystectomy and gastric bypass and is allergic to penicillins and ciprofloxacin . Patient was tachycardic to 101 and having a fever as high as 99.5 and requiring levofed to keep MAPS in the 60s . whitecount was 14.1, hemoglobin 111 , platelet count 462 , BUN of 8. On physical exam patient was malnourished , weak , diaphoretic with hyperactive bowel sounds and having diarrhea. Patient has been admitted for septic shock . other problems listed on patients problem list include: malignant melanoma , hypovolemic shock , possible c diff infection , acute colitis , acute diarrhea , lactic acidosis , severe dehydration, left branch block . prolonged QTC above [address] abdomen and pelvis shows patient with finding of moderate diffuse fluid filled distended loops of the colon , moderate colonic ball wall thickening involving the descending colon. finding concerning for diarrhea and colitis . Plan would be to follow up on stool culture , was notified by lab that stool is positive for camperabactor antigen so will start patient on azithromycin 500 milligrams daily, will require a prolonged course given he is immunocompromised . Continue hydrocortisone , recommend endocrinology consult to see if patients in need of stressosteroids , recommend consulting hematology and oncology to evaluate chemotherapy and or immunotherapy is resulting in patients diarrhea and colitis symptoms . follow up on blood and urine cultures givent hat patient is immunocompromised from recent chemotherapy would continue patient on broadened antibiotic therapy with vancomycin and cefepime , continue IV flagyl . NPO vancomycin for presumed c diff colitis until results have returned . defer management of Nstemy to primary team. 2/5: Patient is coming down off levofed and had 1 large bowel movement this morning but still watery , no fevers . whitecount is 9.8 and clinically patients abdomen is still distended therefore will continue patient on broad antibiotic treatments . continue vancomycin and cefepine, continue IV flagyl and vancomycin , azithromycin. recommend evaluation for hematology oncology to see if chemotherapy and immunotherapy is related to patient colitis and diarrhea symptoms 2/6: feeling better and had only 1 bowel movement and appearing more euvolemic , better hydration and good capillary refill but is still intermittently tachycardic but diarrhea is improving . Plan would be to continue azithromycin and cefepime . C diff testing was negative so can discontinue all forms of vancomycin and decrease pressures as patients BP is improving and defer to primary team for management of steroid use Saw Patient with Dr. Rasmussen and reviewed Dr Leal finding , assessment and plan . did a 12 point review of systems and patient was found positive for fever, diarrhea and other relevant findings from Dr. Rasmussen . Assessment and Plan reviewed with Dr. Rasmussen and agree with finding written above Physical Exam general appearance : Tired,Generalized weakness cardiovascular : Tachycardia,Sinus rhythm,No murmurs gastrointestinal : Soft abdomen,Presence of bowel sounds neurological : Normal neurological examination musculoskeletal : Lower extremity sensory and motor intact SAIDA RASMUSSEN RESIDENT Jun 02, 2024 19:06 DEBORAH MÉNDEZ MD Jun 05, 2024 14:49
[2024-06-02 19:30] VITALS: PULSE 82; RESP 29; O2SAT 94
[2024-06-02] MEDS ORDERED: VANCOMYCIN 1.5GM/300ML 300 ML IV SCH (20:00)
[2024-06-02] MEDS: metroNIDAZOLE 500 MG TAB PO SCH (22:07)
[2024-06-03] VITALS (99 sets, daily range): BP systolic 86–118; BP diastolic 47–80; PULSE 68–122; RESP 13–35; TEMP 97.7–98.9; O2SAT 81–99
[2024-06-03] MEDS: VASOPRESSIN 20 UNIT/ML ONE (00:36)
[2024-06-03] MEDS: SODIUM CHLORIDE 0.9% 1,000 ML IV ONE (13:45)
[2024-06-03 14:36] LABS: Magnesium 1.8 mg/dL (1.6-2.6)
[2024-06-03 14:38] LABS: Potassium 2.9 mmol/L (3.5-5.1)
--- NOTE | 2024-06-03 16:51 | DVHPN2 ---
Consult Progress Note Date Seen: Jun 01, 2024 Objective vital signs Vital Sign Date Time Temp Pulse Resp B/P (MAP) Pulse Ox O2 Delivery O2 Flow Rate FiO2 06/03/24 12:00 20 94 Nasal Cannula* 2 28 06/03/24 12:00 77 06/03/24 11:45 92/59 (70) 06/03/24 08:00 97.8 97.8 Total Intake and Output 06/02/24 06/02/24 06/03/24 15:00 23:00 07:00 Intake Total 492.473 ml 584.750 ml 1276.000 ml Output Total 1630 ml Balance 492.473 ml 584.750 ml -354.000 ml medications Current Medications Medications Dose Ordered Sig/Amanda Route Start Time Stop Time Status Last Admin Dose Admin Nitroglycerin 0.4 mg Q5MINP PRN SL 05/31/24 04:30 Morphine Sulfate 2 mg Q30M PRN IV 05/31/24 04:30 Ondansetron HCl 4 mg Q6HP PRN IV 05/31/24 04:30 Atorvastatin Calcium 40 mg HS PO 05/31/24 22:00 06/02/24 22:07 40 MG Aspirin 81 mg DAILY PO 05/31/24 10:00 06/03/24 11:12 81 MG Sodium Chloride 1,000 ml @ 125 mls/hr Q8H IV 05/31/24 04:30 06/03/24 12:53 125 MLS/HR Vasopressin 20 units/Sodium Chloride 100 ml @ 9 mls/hr Q11H7M IV 05/31/24 07:30 06/03/24 01:12 9 MLS/HR Azithromycin 250 ml @ 125 mls/hr DAILY IV 06/01/24 10:00 06/03/24 10:00 125 MLS/HR Midodrine 5 mg TID@0600,1200,1800 PO 06/01/24 18:00 06/03/24 11:11 5 MG Norepinephrine Bitartrate 16 mg/ Sodium Chloride 250 ml @ 1.875 mls/ hr Q24H IV 06/01/24 12:45 06/01/24 13:15 28.125 MLS/HR Cefepime HCl 50 ml @ 12.5 mls/hr Q8HR IV 06/01/24 22:00 06/03/24 14:38 12.5 MLS/HR Famotidine 20 mg Q12HR IV 06/02/24 10:00 06/03/24 11:11 20 MG Hydrocortisone Sodium Succinate 50 mg Q12HR IV 06/02/24 15:00 06/03/24 11:14 50 MG Cholestyramine Resin 4 gm Q6HR PO 06/03/24 18:00 laboratory and microbiology Laboratory Tests 06/03/24 13:51 06/03/24 06:29 06/02/24 04:40 Test 06/02/24 04:40 Range/Units Serum Glucose 69 L 74-106 mg/dL Problem List/Assessment/Plan Problems(with codes): (1) Colitis (2) Dehydration (3) Acute coronary syndrome (4) Sepsis (5) Urinary retention (6) Hammond catheter problem (7) Hemorrhoids Problem List/Assessment/Plan _ Attending Addendum: Case discussed with Dr. Monroe. at the time of visit. Seen by Dr Monroe and reviewed assessment and plan . patient is a 48 year old male with a past medical history of malignant melanoma and malignancies on the thigh and diffuse colitis of prior infectious ideologies, esophagitis , on immuno therapy , adrenal insufficiency . taking hydrochloric 2x a day and is on Yurvy immunotherapy and radiation . presents with worsening diarrhea for last 3 weeks , watery and was recently diagnosed with C diff infection 6 months ago and was on vancomycin but continued to have weakness. Patient states had positive C diff test at outpatient facility but was unable to confirm this. temp of 100 at home and now currently on levofed and vasopressin to maintain blood pressures and started on oral vancomycin. Has surgical history of cholecystectomy and gastric bypass and is allergic to penicillins and ciprofloxacin . Patient was tachycardic to 101 and having a fever as high as 99.5 and requiring levofed to keep MAPS in the 60s . whitecount was 14.1, hemoglobin 111 , platelet count 462 , BUN of 8. On physical exam patient was malnourished , weak , diaphoretic with hyperactive bowel sounds and having diarrhea. Patient has been admitted for septic shock . other problems listed on patients problem list include: malignant melanoma , hypovolemic shock , possible c diff infection , acute colitis , acute diarrhea , lactic acidosis , severe dehydration, left branch block . prolonged QTC above [address] abdomen and pelvis shows patient with finding of moderate diffuse fluid filled distended loops of the colon , moderate colonic ball wall thickening involving the descending colon. finding concerning for diarrhea and colitis . Plan would be to follow up on stool culture , was notified by lab that stool is positive for camperabactor antigen so will start patient on azithromycin 500 milligrams daily, will require a prolonged course given he is immunocompromised . Continue hydrocortisone , recommend endocrinology consult to see if patients in need of stressosteroids , recommend consulting hematology and oncology to evaluate chemotherapy and or immunotherapy is resulting in patients diarrhea and colitis symptoms . follow up on blood and urine cultures givent hat patient is immunocompromised from recent chemotherapy would continue patient on broadened antibiotic therapy with vancomycin and cefepime , continue IV flagyl . NPO vancomycin for presumed c diff colitis until results have returned . defer management of Nstemy to primary team. 2: Patient is coming down off levofed and had 1 large bowel movement this morning but still watery , no fevers . whitecount is 9.8 and clinically patients abdomen is still distended therefore will continue patient on broad antibiotic treatments . continue vancomycin and cefepine, continue IV flagyl and vancomycin , azithromycin. recommend evaluation for hematology oncology to see if chemotherapy and immunotherapy is related to patient colitis and diarrhea symptoms Saw Patient with Dr. Monroe and reviewed Dr Leal finding , assessment and plan . did a 12 point review of systems and patient was found positive for fever, diarrhea and other relevant findings from Dr. Monroe . Assessment and Plan reviewed with Dr. Monroe and agree with finding written above Physical Exam general appearance : Tired,Generalized weakness cardiovascular : Tachycardia,Sinus rhythm,No murmurs gastrointestinal : Soft abdomen,Presence of bowel sounds neurological : Normal neurological examination musculoskeletal : Lower extremity sensory and motor intact Plan discussed with: Other DEBORAH MÉNDEZ MD Jun 03, 2024 16:51
[2024-06-03] MEDS: CHOLESTYRAMINE 4 GM POWDER PO SCH (18:11)
--- NOTE | 2024-06-03 18:29 | DVHPN2 ---
Progress Note - Dictate Date Seen: Jun 03, 2024 Medical Necessity Reason Pt with a Central, PICC or Fol: Yes Subjective Clinically stable. Off of blood pressure support overnight. Diarrhea still persistent. Patient recently treated for C diff colitis with oral vancomycin at [facility]. Patient is also on hydrocortisone orally for adrenal insufficiency. vital signs Vital Sign Date Time Temp Pulse Resp B/P (MAP) Pulse Ox O2 Delivery O2 Flow Rate FiO2 06/03/24 16:30 97.7 76 20 98/59 (72) 96 97.7 06/03/24 16:00 Nasal Cannula* 2 28 Total Intake and Output 06/02/24 06/02/24 06/03/24 15:00 23:00 07:00 Intake Total 492.473 ml 584.750 ml 1276.000 ml Output Total 1630 ml Balance 492.473 ml 584.750 ml -354.000 ml medications Current Medications Medications Dose Ordered Sig/Amanda Route Start Time Stop Time Status Last Admin Dose Admin Nitroglycerin 0.4 mg Q5MINP PRN SL 05/31/24 04:30 Morphine Sulfate 2 mg Q30M PRN IV 05/31/24 04:30 Ondansetron HCl 4 mg Q6HP PRN IV 05/31/24 04:30 Atorvastatin Calcium 40 mg HS PO 05/31/24 22:00 06/02/24 22:07 40 MG Aspirin 81 mg DAILY PO 05/31/24 10:00 06/03/24 11:12 81 MG Sodium Chloride 1,000 ml @ 125 mls/hr Q8H IV 05/31/24 04:30 06/03/24 12:53 125 MLS/HR Vasopressin 20 units/Sodium Chloride 100 ml @ 9 mls/hr Q11H7M IV 05/31/24 07:30 06/03/24 01:12 9 MLS/HR Midodrine 5 mg TID@0600,1200,1800 PO 06/01/24 18:00 06/03/24 18:11 5 MG Norepinephrine Bitartrate 16 mg/ Sodium Chloride 250 ml @ 1.875 mls/ hr Q24H IV 06/01/24 12:45 06/01/24 13:15 28.125 MLS/HR Famotidine 20 mg Q12HR IV 06/02/24 10:00 06/03/24 11:11 20 MG Hydrocortisone Sodium Succinate 50 mg Q12HR IV 06/02/24 15:00 06/03/24 11:14 50 MG Cholestyramine Resin 4 gm Q6HR PO 06/03/24 18:00 06/03/24 18:11 4 GM Vancomycin HCl 125 mg QID PO 06/03/24 22:00 UNV Potassium Chloride 40 meq/ Potassium Chloride 4 ml/ Sodium Chloride 274 ml @ 68.5 mls/hr Q4HR IV 06/03/24 18:30 06/04/24 01:59 UNV Magnesium Sulfate/ Dextrose 100 ml @ 100 mls/hr Q1HR IV 06/03/24 19:00 06/03/24 20:59 UNV objective Alert awake oriented x3. Comfortable in bed without distress. HEENT neck supple no JVD. Heart regular rate and rhythm S1-S2. Lungs fair air movement without rales wheezes. Abdomen soft tympanic to palpation nontender positive bowel sounds. Extremities trace edema around the ankles. Positive pulses. laboratory and microbiology Laboratory Tests 06/03/24 13:51 06/03/24 06:29 06/02/24 04:40 Test 06/02/24 04:40 Range/Units Serum Glucose 69 L 74-106 mg/dL Assessment/Plan We will continue to treat for C diff colitis though he is repeat C diff in the hospital is negative. We will finish the course of oral vancomycin for 10 days total. Patient tells me he only took for two days prior to coming to the hospital. His blood and urine cultures are negative for any growth therefore we will discontinue rest of IV antibiotics. I will start him on Questran to bulk the stool to minimize diarrhea. He is replace his electrolytes aggressively. Given his potassium is low we will give him 80 mEq of IV potassium overnight. Repeat care Mag in the morning. Given his QTC is prolonged on EKG I will discontinue azithromycin which he is started for Campylobacter stool infection. Otherwise continue rest of supportive care and treatment as he is on. Follow clinical management per clinical course. Discussed with the patient's nurse regarding care plan. Patient is stable to be downgraded to step-down unit overnight. Problems(with codes): (1) Nausea vomiting and diarrhea (2) Hypotension (3) Colitis Plan discussed with: Patient, Other MADISON OTT MD Jun 03, 2024 18:29
[2024-06-03] MEDS: POTASSIUM CHLORIDE 40 MEQ, LIDOCAINE 1% (LOCAL ANESTH.) 4 ML in SODIUM CHL 0.9% 250 ML IV SCH (19:41)
[2024-06-03] MEDS: MAGNESIUM SULFATE 1GM/100ML 100 ML IV SCH (20:13)
--- NOTE | 2024-06-03 21:27 | DVHPN2 ---
SAIDA MONROE RESIDENT 06/03/242126: Consult Progress Note Date Seen: Jun 03, 2024 Subjective Patient reports: No new complaints Other Systems: Patient seen and examined at bedside. Patient is bowel frequency reduced to one or two per day, abdomen soft, no pain, no fever. Continued to be on vasopressor. Physical Exam general appearance : Tired,Generalized weakness cardiovascular : Tachycardia,Sinus rhythm,No murmurs gastrointestinal : Soft abdomen,Presence of bowel sounds, distended abdomen. neurological : Normal neurological examination musculoskeletal : Lower extremity sensory and motor intact Objective vital signs Vital Sign Date Time Temp Pulse Resp B/P (MAP) Pulse Ox O2 Delivery O2 Flow Rate FiO2 06/03/24 18:30 73 29 98/59 (72) 96 06/03/24 18:00 Nasal Cannula* 2 28 06/03/24 16:30 97.7 97.7 Total Intake and Output 06/02/24 06/02/24 06/03/24 15:00 23:00 07:00 Intake Total 492.473 ml 584.750 ml 1276.000 ml Output Total 1630 ml Balance 492.473 ml 584.750 ml -354.000 ml medications Current Medications Medications Dose Ordered Sig/Amanda Route Start Time Stop Time Status Last Admin Dose Admin Nitroglycerin 0.4 mg Q5MINP PRN SL 05/31/24 04:30 Morphine Sulfate 2 mg Q30M PRN IV 05/31/24 04:30 Ondansetron HCl 4 mg Q6HP PRN IV 05/31/24 04:30 Atorvastatin Calcium 40 mg HS PO 05/31/24 22:00 06/02/24 22:07 40 MG Aspirin 81 mg DAILY PO 05/31/24 10:00 06/03/24 11:12 81 MG Sodium Chloride 1,000 ml @ 125 mls/hr Q8H IV 05/31/24 04:30 06/03/24 12:53 125 MLS/HR Vasopressin 20 units/Sodium Chloride 100 ml @ 9 mls/hr Q11H7M IV 05/31/24 07:30 06/03/24 01:12 9 MLS/HR Midodrine 5 mg TID@0600,1200,1800 PO 06/01/24 18:00 06/03/24 18:11 5 MG Norepinephrine Bitartrate 16 mg/ Sodium Chloride 250 ml @ 1.875 mls/ hr Q24H IV 06/01/24 12:45 06/01/24 13:15 28.125 MLS/HR Famotidine 20 mg Q12HR IV 06/02/24 10:00 06/03/24 11:11 20 MG Hydrocortisone Sodium Succinate 50 mg Q12HR IV 06/02/24 15:00 06/03/24 11:14 50 MG Cholestyramine Resin 4 gm Q6HR PO 06/03/24 18:00 06/03/24 18:11 4 GM Vancomycin HCl 125 mg QID PO 06/03/24 22:00 Potassium Chloride 40 meq/ Potassium Chloride 4 ml/ Sodium Chloride 274 ml @ 68.5 mls/hr Q4HR IV 06/03/24 18:30 06/04/24 01:59 06/03/24 19:41 68.5 MLS/HR laboratory and microbiology Laboratory Tests 06/03/24 13:51 06/03/24 06:29 06/02/24 04:40 Test 06/02/24 04:40 Range/Units Serum Glucose 69 L 74-106 mg/dL Problem List/Assessment/Plan Problem List/Assessment/Plan Septic shock Hypovolemic shock Acute colitis ? Due to C diff infection, immunotherapy or radiation therapy induced Acute diarrhea ? C diff infection NSTEMI type 2 likely due to shock Lactic acidosis Severe dehydration Hypokalemia Left bundle branch block Prolonged QTC Plan/recommendation -continue IV antibiotic with cefepime and azithromycin. Discontinued vancomycin and metronidazole given C diff is negative. -patient came positive for Campylobacter, negative for shiga toxin. Continue IV azithromycin 500 mg once daily, recommend continue follow-up daily EKG for prolonged QTC. -Rigorous IV fluid resuscitation. And maintain map gradient 65, continued to be on vasopressor. -CT abdominal pelvis:Findings are suspicious for diarrhea/ colitis. -recommend Hematology Oncology consultation given possible diarrhea likely due to immunotherapy and radiation, patient receives [place] [facility] [place] cardiology recommendation: Prolonged QTC, LBB, we will in continue azithromycin for now, continue to monitor QTC, recommend regular daily EKG. -recommend stress dose corticosteroids, as per patient he takes hydrocortisone 10 mg p.o. twice daily for adrenal insufficiency. -continue closely follow up. -rest of the management as per primary care team Plan discussed with: Patient, Other (RN) DEBORAH MÉNDEZ MD 06/05/24 1452: Consult Progress Note Problem List/Assessment/Plan Problem List/Assessment/Plan _ Attending Addendum: Case discussed with Dr. Monroe. at the time of visit. Seen by Dr Monroe and reviewed assessment and plan . patient is a 48 year old male with a past medical history of malignant melanoma and malignancies on the thigh and diffuse colitis of prior infectious ideologies, esophagitis , on immuno therapy , adrenal insufficiency . taking hydrochloric 2x a day and is on Yurvy immunotherapy and radiation . presents with worsening diarrhea for last 3 weeks , watery and was recently diagnosed with C diff infection 6 months ago and was on vancomycin but continued to have weakness. Patient states had positive C diff test at outpatient facility but was unable to confirm this. temp of 100 at home and now currently on levofed and vasopressin to maintain blood pressures and started on oral vancomycin. Has surgical history of cholecystectomy and gastric bypass and is allergic to penicillins and ciprofloxacin . Patient was tachycardic to 101 and having a fever as high as 99.5 and requiring levofed to keep MAPS in the 60s . whitecount was 14.1, hemoglobin 111 , platelet count 462 , BUN of 8. On physical exam patient was malnourished , weak , diaphoretic with hyperactive bowel sounds and having diarrhea. Patient has been admitted for septic shock . other problems listed on patients problem list include: malignant melanoma , hypovolemic shock , possible c diff infection , acute colitis , acute diarrhea , lactic acidosis , severe dehydration, left branch block . prolonged QTC above [address] abdomen and pelvis shows patient with finding of moderate diffuse fluid filled distended loops of the colon , moderate colonic ball wall thickening involving the descending colon. finding concerning for diarrhea and colitis . Plan would be to follow up on stool culture , was notified by lab that stool is positive for camperabactor antigen so will start patient on azithromycin 500 milligrams daily, will require a prolonged course given he is immunocompromised . Continue hydrocortisone , recommend endocrinology consult to see if patients in need of stressosteroids , recommend consulting hematology and oncology to evaluate chemotherapy and or immunotherapy is resulting in patients diarrhea and colitis symptoms . follow up on blood and urine cultures givent hat patient is immunocompromised from recent chemotherapy would continue patient on broadened antibiotic therapy with vancomycin and cefepime , continue IV flagyl . NPO vancomycin for presumed c diff colitis until results have returned . defer management of Nstemy to primary team. 2/5: Patient is coming down off levofed and had 1 large bowel movement this morning but still watery , no fevers . whitecount is 9.8 and clinically patients abdomen is still distended therefore will continue patient on broad antibiotic treatments . continue vancomycin and cefepine, continue IV flagyl and vancomycin , azithromycin. recommend evaluation for hematology oncology to see if chemotherapy and immunotherapy is related to patient colitis and diarrhea symptoms 2/6: feeling better and had only 1 bowel movement and appearing more euvolemic , better hydration and good capillary refill but is still intermittently tachycardic but diarrhea is improving . Plan would be to continue azithromycin and cefepime . C diff testing was negative so can discontinue all forms of vancomycin and decrease pressures as patients BP is improving and defer to primary team for management of steroid use 2/7: oral vancomycin was restarted due to patient having 2 loose bowel movements but not having any abdominal pain and abdominal distention has resolved . Plan would be to continue cefepime and azithromycin . if patients diarrhea improves in the next 24-48 hours would highly recommend discontinuing oral vancomycin as patient soto not demonstrate a positive C diff test that would be consistent with a c diff diagnosis Saw Patient with Dr. Monroe and reviewed Dr Leal finding , assessment and plan . did a 12 point review of systems and patient was found positive for fever, diarrhea and other relevant findings from Dr. Monroe . Assessment and Plan reviewed with Dr. Monroe and agree with finding written above Physical Exam general appearance : Tired,Generalized weakness cardiovascular : Tachycardia,Sinus rhythm,No murmurs gastrointestinal : Soft abdomen,Presence of bowel sounds neurological : Normal neurological examination musculoskeletal : Lower extremity sensory and motor intact SIADA MONROE RESIDENT Jun 03, 2024 21:27 DEBORAH MÉNDEZ MD Jun 05, 2024 14:52
[2024-06-03] MEDS: VANCOMYCIN HCL 125 MG CAP PO SCH (21:45)
[2024-06-04] VITALS (33 sets, daily range): BP systolic 109–129; BP diastolic 65–83; PULSE 72–126; RESP 13–99; TEMP 97.8–98.7; O2SAT 87–98
[2024-06-04 04:25] LABS: Sodium 141 mmol/L (136-145)
[2024-06-04 04:26] LABS: Anion Gap 11 (5-15); Carbon Dioxide 20 mmol/L (20-31); Hematocrit 30.2 % (41.0-53.0); Hemoglobin 10.2 g/dL (13.5-17.5); Mean Corpuscular Hemoglobin 29.1 pg (28.0-32.0); Mean Corpuscular Hgb Conc. 33.7 g/dL (32.0-36.0); Mean Corpuscular Volume 86.3 fL (80.0-100.0); Platelet Count (auto) 339 10^3/uL (140-450); Red Blood Cells 3.49 10^6/uL (4.5-5.90); Red Cell Distribution Width 14.5 % (11.8-14.3); White Blood Cell 8.1 10^3/uL (4.4-10.8)
[2024-06-04 04:31] LABS: Basophils % (manual) 0 (0.0-2.0); Blast Cells 0; Eosinophils % (manual) 0 (0-7); Metamyelocytes % 0; Monocytes % (manual) 0 (0-12); Myelocytes % 0; Promyelocytes % 0; Reactive Lymphocytes 0
[2024-06-04 04:32] LABS: BUN/Creatinine Ratio 12.3 (10.0-20.0); Magnesium 2.3 mg/dL (1.6-2.6)
[2024-06-04 04:36] LABS: Blood Urea Nitrogen 8 mg/dL (9-23); Calcium 8.3 mg/dL (8.7-10.4); Chloride 110 mmol/L (98-107); Glucose 136 mg/dL (74-106); Potassium 3.5 mmol/L (3.5-5.1)
[2024-06-04 05:23] LABS: Band Neutrophils % (manual) 7; Lymphocytes % (manual) 20 (10.0-50.0)
[2024-06-04 05:24] LABS: Platelet Estimate Adequate
--- NOTE | 2024-06-04 08:16 | ECG ---
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
--- NOTE | 2024-06-04 14:13 | DVHPN2 ---
Progress Note - Dictate Date Seen: Jun 04, 2024 Medical Necessity Reason Pt with a Central, PICC or Fol: Yes Subjective Clinically feeling better today. Diarrhea seems to have slightly improved. Blood pressure has normalized. vital signs Vital Sign Date Time Temp Pulse Resp B/P (MAP) Pulse Ox O2 Delivery O2 Flow Rate FiO2 06/04/24 12:00 18 96 Nasal Cannula* 2 28 06/04/24 12:00 85 06/04/24 11:00 119/78 (92) 06/04/24 08:00 97.8 97.8 Total Intake and Output 06/03/24 06/03/24 06/04/24 15:00 23:00 07:00 Intake Total 1068 ml 1724.0 ml 1587.0 ml Output Total 3200 ml 1850 ml Balance 1068 ml -1476.0 ml -263.0 ml medications Current Medications Medications Dose Ordered Sig/Amanda Route Start Time Stop Time Status Last Admin Dose Admin Nitroglycerin 0.4 mg Q5MINP PRN SL 05/31/24 04:30 Morphine Sulfate 2 mg Q30M PRN IV 05/31/24 04:30 Ondansetron HCl 4 mg Q6HP PRN IV 05/31/24 04:30 Atorvastatin Calcium 40 mg HS PO 05/31/24 22:00 06/03/24 21:43 40 MG Aspirin 81 mg DAILY PO 05/31/24 10:00 06/04/24 09:25 81 MG Midodrine 5 mg TID@0600,1200,1800 PO 06/01/24 18:00 06/04/24 12:14 5 MG Famotidine 20 mg Q12HR IV 06/02/24 10:00 06/04/24 09:28 20 MG Hydrocortisone Sodium Succinate 50 mg Q12HR IV 06/02/24 15:00 06/04/24 09:28 50 MG Cholestyramine Resin 4 gm Q6HR PO 06/03/24 18:00 06/04/24 12:14 4 GM Vancomycin HCl 125 mg QID PO 06/03/24 22:00 06/04/24 12:14 125 MG Potassium Chloride/Sodium Chloride 1,000 ml @ 75 mls/hr [id number] IV 06/04/24 12:45 Trazodone HCl 50 mg HS PRN PO 06/04/24 13:50 UNV objective Alert awake oriented x3. Comfortable in bed without distress. HEENT neck supple no JVD. Heart regular rate and rhythm S1-S2. Lungs fair air movement without rales wheezes. Abdomen soft tympanic to palpation nontender positive bowel sounds. Extremities trace edema around the ankles. Positive pulses. laboratory and microbiology Laboratory Tests 06/04/24 03:29 Test 06/04/24 03:29 Range/Units Serum Glucose 136 H 74-106 mg/dL Assessment/Plan We will continue to treat for C diff colitis though he is repeat C diff in the hospital is negative. We will finish the course of oral vancomycin for 10 days total. Downgrade to telemetry floor today. Cut down midodrine given blood pressure is normal. Advance diet to soft diet. DC Hammond catheter. Physical therapy evaluation and ambulate as tolerated. Discussed with the nurse and patient regarding care plan. Dietary Evaluation Review Comments: 1) Advance to cardiac diet when medically feasible 2) Encourage good PO intake 3) Continue to monitor electrolytes Expected Outcomes/Goals: 1) appetite and labs to improve 2) diet to advance 3) f/u in 3-5 days Plan discussed with: Other MADISON OTT MD Jun 04, 2024 14:13
[2024-06-04] MEDS: SOD CHL 0.9%/ KCL 20MEQ 1,000 ML IV SCH (14:30)
[2024-06-04] MEDS: POTASSIUM EFFERVESENT TAB 25 MEQ PO ONE (14:31)
--- NOTE | 2024-06-04 23:23 | DVHINCON2 ---
Date of service: Jun 04, 2024 Referring Physician Carmella Medina NP Reason for Consultation Septic shock History of Present Illness A 48 year old man with PMHx of cancer, hyperlipidemia, hypothyroidism, C. difficile infection, and chronic pain syndrome who presented to ED on 05/31/24 with a chief complaint of chills and generalized weakness. Patient reported intermittent chills for the past 2x weeks, with additional onset of generalized weakness on day of presentation. Patient reports he started vancomycin the day prior to presentation following recent C. diff diagnosis. On workup in ED, CT abdomen and pelvis resulted showed findings suspicious for diarrhea/ colitis. WBC was 14.1, H&H 11/34.2, Platelets 462, Na 133, K 3.5, BUN 9/1.09, Lactic acid 3.5, 1.9, AST 56, ALT 42, ALP 513, Troponin 461, 563. Patient was admitted for further care due to C. diff colitis and septic shock and pulmonary consultation is requested for evaluation and management due to the above findings. Review of Systems: 14-point review of systems negative unless otherwise noted above. Past Medical History: Cancer, hyperlipidemia, hypothyroidism, C. difficile infection (recent), and chronic pain syndrome Past Surgical History: Hernia repair, right thumb amputation, partial gastric bypass (distal antrectomy with Billroth 1 reconstruction). Medications: Reviewed. Allergies: Amoxicillin Ciprofloxacin Penicillins Family History: Asthma Hypercholesterolemia Hypertension Social History: Ex smoker, quit greater than 1 year ago Occasional alcohol use No illicit drug use Family History: Asthma G8 SISTER, Onset:Unknown Hypercholesterolemia G8 MOTHER, Onset:Unknown Hypertension G8 MOTHER, Onset:Unknown Allergies: Coded Allergies: Amoxicillin (Verified Allergy, Severe, 12/31/21) Ciprofloxacin (Verified Allergy, Severe, projectile vomiting, weakness, shaking, 01/16/24) Penicillins (Verified Allergy, Unknown, 12/31/21) Home Meds Active Scripts Hydrocortisone Acetate (Anusol-Hc) 25 Mg Sup, 1 SUPP OR BID, #14 SUPP Prov:AMARILIS KINCAID MD 02/28/24 Tamsulosin Hcl (Flomax) 0.4 Mg Cap, 1 CAP PO DAILY, #30 CAP 11 Refills Prov:AMARILIS KINCAID MD 02/28/24 Sulfamethoxazole W/Trimethopri (Bactrim Ds Tablet) 1 Tab Tb, 1 TAB PO BID for 7 Days, #14 TAB Prov:LEONEL TERRY MD 01/16/24 Acetaminophen (Tylenol Extra Strength) 500 Mg Tab, 1000 MG PO Q6HP PRN, #30 TAB prn fever or pain Prov:MANUEL GOMEZ MD 01/16/24 Simethicone (Simethicone) 80 Mg Chw, 2-4 TAB PO Q6HP PRN, #30 TAB.CHEW prn gas Prov:MANUEL GOMEZ MD 01/16/24 Metronidazole (Flagyl) 500 Mg Tab, 1 TAB PO TID for 10 Days, #30 TAB Prov:MANUEL GOMEZ MD 01/16/24 Cephalexin ( Keflex 500) 500 Mg Cap, 1 CAP PO QID PRN, #40 CAP Prov:FREDDY PALOMARES 02/19/22 Megestrol Acetate (Appetite) (Megestrol Acetate) 625 Mg/5 Ml Pilar, 625 MG PO DAILY PRN for 30 Days, #30 EA Prov:MALATHI LEBRON MD 01/14/22 Midodrine HCl (Midodrine HCl) 10 Mg Tab, 10 MG PO TID@0600,1200,1800 for 30 Days, #90 TAB Prov:MALATHI LEBRON MD 01/13/22 Loperamide HCl (Loperamide HCl) 2 Mg Tab, 2 MG PO Q2HPRN PRN, #40 TAB Prov:TAQUERIA HERNANDEZ MD 09/30/18 Potassium Chloride (Potassium Chloride ER) 20 Meq Tab, 20 MEQ PO DAILY, #3 Prov:TAQUERIA HERNANDEZ MD 09/29/18 Reported Medications Sumatriptan Succinate (Sumatriptan Succinate) 100 Mg Tab, 100 MG PO PRN, MG 01/01/22 Cholecalciferol (KP VITAMIN D) 1,000 Unit Cap, 5000 UNIT PO DAILY, CAP 01/01/22 Levothyroxine Sodium (Levothyroxine Sodium) 50 Mcg Tab, 50 MCG PO QAM for 30 Days, MCG 01/01/22 Cholestyramine (QUESTRAN POWDER) 4 Gm Pw, 4 GM PO BID 09/28/18 Diphenoxylate W/ Atropine (Lomotil) 2.5 Mg Tab, 2 TAB PO TID PRN for FOR DIARRHEA, #30 TAB 09/28/18 Pantoprazole Sodium Sesquihydr (Protonix) 40 Mg Tab, 40 MG PO DAILY, #30 TAB 09/28/18 Famotidine (PEPCID TABLET) 20 Mg Tb, 1 TAB PO HS, #60 TAB 5 Refills 09/28/18 Simvastatin (Simvastatin) 5 Mg Tab, 5 MG PO HS, TAB 08/17/18 Prochlorperazine Maleate (Compazine) 10 Mg Tb, 0.5 TAB PO TID, #30 TAB 3 Refills 08/17/18 Current Medications Current Medications Medications (Trade) Dose Ordered Sig/Amanda Route PRN Reason Start Time Stop Time Status Last Admin Potassium Chloride/Sodium Chloride 1,000 ml @ 75 mls/hr [id number] IV 06/04/24 12:45 06/04/24 14:30 Trazodone HCl (Desyrel) 50 mg HS PRN PO FOR INSOMNIA 06/04/24 13:50 Midodrine (Proamatine Tablet) 5 mg DAILY PO 06/05/24 10:00 Vital Signs Vital Signs Date Time Temp Pulse Resp B/P (MAP) Pulse Ox O2 Delivery O2 Flow Rate FiO2 06/04/24 21:00 98.1 72 19 115/68 (84) 97 98.1 06/04/24 12:00 Nasal Cannula* 2 28 Physical Exam Gen.: Patient lying in bed in no apparent distress. On supplemental oxygen. Head: Normocephalic, atraumatic. Eyes: EOMI/PERRLA. Ears: Normal hearing. Normal anatomy. Neck/trachea: Trachea midline, supple. Nose: Normal external anatomy. Mouth: Moist mucous membranes. Chest: Decreased air entry bilaterally. No wheezing or rhonchi. Cardiovascular: Positive S1, positive S2. Regular rate and rhythm. Abdomen: Positive bowel sounds in all 4 quadrants. Soft, non-tender, non-dist ended. : Deferred. Rectal: Deferred. Skin: Warm, dry. Intact. Extremities: 2+ radial pulses bilaterally. No lower extremity edema. Neuro: Awake, alert, oriented x3. No gross motor or sensory deficits. Cranial nerves II through XII intact. Gait not assessed. Labs/Diagnostic Data Labs Test 06/04/24 03:29 06/02/24 07:12 06/02/24 04:40 06/02/24 00:00 Range/Units White Blood Count 8.1 # 4.4-10.8 10^3/uL Red Blood Count 3.49 L 4.5-5.90 10^6/uL Hemoglobin 10.2 L 13.5-17.5 g/dL Hematocrit 30.2 #L 41.0-53.0 % Mean Corpuscular Volume 86.3 80.0-100.0 fL Mean Corpuscular Hemoglobin 29.1 28.0-32.0 pg Mean Corpuscular Hemoglobin Concent 33.7 32.0-36.0 g/dL Red Cell Distribution Width 14.5 H 11.8-14.3 % Platelet Count 339 140-450 10^3/uL Mean Platelet Volume 7.7 6.9-10.8 fL Neutrophils (%) (Auto) 37.0-80.0 % Lymphocytes (%) (Auto) 10.0-50.0 % Monocytes (%) (Auto) 0.0-12.0 % Basophils (%) (Auto) 0.0-2.0 % Neutrophils # (Auto) 1.6-8.6 10 ^3/uL Lymphocytes # (Auto) 0.4-5.4 10 ^3/uL Monocytes # (Auto) 0-1.3 10 ^3/uL Differential Total Cells Counted 100.0 100 Neutrophils % (Manual) 73 37.0-80.0 Band Neutrophils % (Manual) 7 Lymphocytes % (Manual) 20 10.0-50.0 Monocytes % (Manual) 0 0-12 Eosinophils % (Manual) 0 0-7 Basophils % (Manual) 0 0.0-2.0 Metamyelocytes % (manual) 0 Myelocytes % (Manual) 0 Promyelocytes % (Manual) 0 Blast Cells % (Manual) 0 Reactive Lymphocytes 0 Platelet Estimate Adequate Sodium Level 141 # 136-145 mmol/L Potassium Level 3.5 3.5-5.1 mmol/L Chloride Level 110 H 98-107 mmol/L Carbon Dioxide Level 20 20-31 mmol/L Anion Gap 11 5-15 Blood Urea Nitrogen 8 L 9-23 mg/dL Creatinine 0.65 L 0.700-1.30 mg/dL Glomerular Filtration Rate Calc 116 >90 mL/min BUN/Creatinine Ratio 12.3 10.0-20.0 Serum Glucose 136 H 74-106 mg/dL Calcium Level 8.3 L 8.7-10.4 mg/dL Magnesium Level 2.3 1.6-2.6 mg/dL Vancomycin Level Trough 7.1 5-10 ug/mL Eosinophils (%) (Auto) 8.7 H 0.0-7.0 % Eosinophils # (Auto) 0.5 0-0.8 10 ^3/uL Basophils # (Auto) 0 0-0.2 10 ^3/uL Nucleated Red Blood Cells 0.0 % Miscellaneous Referred Test (Refrg) Sent to [facility] Test 05/31/24 11:43 05/31/24 08:38 05/31/24 04:52 05/31/24 02:16 Range/Units Stool for White Cells Moderate POC Glucose 94 70-106 mg/dl Lactic Acid Level 2.0 0.4-2.0 mmol/L Troponin I High Sensitivity 703 *H </=54 ng/L Urine Color Yellow Yellow Urine Clarity Clear Clear Urine pH 6.0 5.0-9.0 Urine Specific [place] 1.021 1.001-1.035 Urine Protein 1+ H Negative Urine Ketones 2+ H Negative Urine Blood 1+ H Negative /uL Urine Nitrite Negative Negative Urine Bilirubin Negative Negative Urine Urobilinogen Normal Negative mg/dL Urine Leukocyte Esterase Negative Negative /uL Urine RBC 5 0 - 3 /hpf Urine Microscopic WBC 1 0-3 /HPF Urine Squamous Epithelial Cells Few <5 /hpf Urine Bacteria None seen None Seen /hpf Urine Hyaline Casts Few 0 - 2 /lpf Urine Glucose Normal Normal mg/dL Test 05/30/24 22:45 Range/Units Total Bilirubin 1.0 0.2-1.0 mg/dL Aspartate Amino Transferase (AST) 56 H 13-40 U/L Alanine Aminotransferase (ALT) 42 H 7-40 U/L Alkaline Phosphatase 513 H 46-116 U/L Total Protein 7.4 5.7-8.2 g/dL Albumin 4.0 3.2-4.8 g/dL Microbiology Date/Time Source Procedure Growth Status 06/04/24 01:30 Nose MRSA Screen - Final Complete 05/31/24 11:43 Stool Stool Culture - Final Complete 05/31/24 11:43 Stool Shiga Toxin I & II - Final Complete 05/31/24 02:16 Voided Urine Urine Culture - Final Complete 05/30/24 21:39 Blood Blood Culture - Final NO GROWTH AFTER 5 DAYS OF INCUBATION. Complete Assessment Impression: Dependence on supplemental oxygen Septic shock Clostridium difficile related colitis. Sgn-CI-npthdtonw myocardial infarction Lactic acidosis Hypokalemia Left bundle branch block Prolonged QTC Leukocytosis GERD Hyperlipidemia. History of metastatic melanoma. Hx of nicotine dependence Plan: Supplemental oxygen 2 LPM NC Titrate to keep O2 sats above 92%. Taper O2 as tolerated. Continue antibiotics for colitis On midodrine for blood pressure. Hemodynamically stable. IV fluids with NS at 125 ml/hr. Monitor renal function. Monitor electrolytes. Supplement as necessary. Potassium supplementation Magnesium supplementation Monitor ins and outs. Patient is stable from the pulmonary standpoint for downgrade to tele. DVT prophylaxis. Prognosis: Poor given patient's multiple co-morbidities. Condition: Critical Rest of plan per hospitalist and other consultants. A total of 35 minutes of critical care time was spent reviewing the patient record, examining the patient, making a diagnostic and therapeutic plan, discussing this plan with the medical personnel, following up on diagnostic studies and following the patient for clinical stability excluding any and all procedures. At least 50% of this time was spent in direct, [id number] conta ct. Thank you, CARTER Medina, for allowing me to participate in this patient's care. Further recommendations will depend on the patient's clinical course. Please do not hesitate to contact me if you have any questions or concerns. This medical document was created using an electronic medical record system with [employer] dictation system. Although these documentations are being carefully reviewed, there may still be some phonetic and typographical changes. The errors are purely typographical, due to imperfection on the software program, and do not reflect any compromise in the patient's medical care. Plan discussed with: Patient, Other (MARE Valera/CARTER Medina/) NELLIE VEGAS MD Jun 04, 2024 23:23
[2024-06-05] VITALS (8 sets, daily range): BP systolic 108–116; BP diastolic 66–70; PULSE 66–81; RESP 18–20; TEMP 97.6–98.3; O2SAT 94–99
[2024-06-05 07:09] LABS: Sodium 144 mmol/L (136-145)
[2024-06-05 07:10] LABS: Anion Gap 6 (5-15); Carbon Dioxide 24 mmol/L (20-31)
[2024-06-05 07:14] LABS: Chloride 114 mmol/L (98-107); Potassium 3.3 mmol/L (3.5-5.1)
[2024-06-05 07:15] LABS: BUN/Creatinine Ratio 11.6 (10.0-20.0); Magnesium 2.2 mg/dL (1.6-2.6)
[2024-06-05 07:19] LABS: Blood Urea Nitrogen 8 mg/dL (9-23); Glucose 128 mg/dL (74-106)
[2024-06-05] MEDS: MIDODRINE HCL 10 MG TAB PO SCH (09:29)
--- NOTE | 2024-06-05 13:01 | DVHPN2 ---
Progress Note - Dictate Date Seen: Jun 05, 2024 Medical Necessity Reason Pt with a Central, PICC or Fol: Yes Subjective Clinically feeling better today. Diarrhea improved. Blood pressure has normalized. vital signs Vital Sign Date Time Temp Pulse Resp B/P (MAP) Pulse Ox O2 Delivery O2 Flow Rate FiO2 06/05/24 12:37 97.9 66 19 109/68 (82) 99 97.9 06/05/24 07:50 Nasal Cannula* 2 28 Total Intake and Output 06/04/24 06/04/24 06/05/24 15:00 23:00 07:00 Intake Total 625 ml 1120 ml 1520 ml Output Total 900 ml 5 ml Balance 625 ml 220 ml 1515 ml medications Current Medications Medications Dose Ordered Sig/Amanda Route Start Time Stop Time Status Last Admin Dose Admin Nitroglycerin 0.4 mg Q5MINP PRN SL 05/31/24 04:30 Morphine Sulfate 2 mg Q30M PRN IV 05/31/24 04:30 Ondansetron HCl 4 mg Q6HP PRN IV 05/31/24 04:30 Atorvastatin Calcium 40 mg HS PO 05/31/24 22:00 06/04/24 22:00 40 MG Aspirin 81 mg DAILY PO 05/31/24 10:00 06/05/24 09:28 81 MG Famotidine 20 mg Q12HR IV 06/02/24 10:00 06/05/24 09:29 20 MG Hydrocortisone Sodium Succinate 50 mg Q12HR IV 06/02/24 15:00 06/05/24 09:30 50 MG Cholestyramine Resin 4 gm Q6HR PO 06/03/24 18:00 06/05/24 12:19 4 GM Vancomycin HCl 125 mg QID PO 06/03/24 22:00 06/05/24 06:01 125 MG Potassium Chloride/Sodium Chloride 1,000 ml @ 75 mls/hr [id number] IV 06/04/24 12:45 06/04/24 14:30 75 MLS/HR Trazodone HCl 50 mg HS PRN PO 06/04/24 13:50 Midodrine 5 mg DAILY PO 06/05/24 10:00 06/05/24 09:29 5 MG objective Alert awake oriented x3. Comfortable in bed without distress. HEENT neck supple no JVD. Heart regular rate and rhythm S1-S2. Lungs fair air movement without rales wheezes. Abdomen soft tympanic to palpation nontender positive bowel sounds. Extremities trace edema around the ankles. Positive pulses. laboratory and microbiology Laboratory Tests 06/05/24 06:19 06/04/24 03:29 Test 06/05/24 06:19 Range/Units Serum Glucose 128 H 74-106 mg/dL Assessment/Plan We will continue to treat for C diff colitis though he is repeat C diff in the hospital is negative. We will finish the course of oral vancomycin for 10 days total. Continue current fluids and replace potassium. Advance diet as he has tolerates. Further clinical management per clinical course. Discussed with the nurse. Problems(with codes): (1) Dehydration (2) Colitis Dietary Evaluation Review Comments: 1) Advance to cardiac diet when medically feasible 2) Encourage good PO intake 3) Continue to monitor electrolytes Expected Outcomes/Goals: 1) appetite and labs to improve 2) diet to advance 3) f/u in 3-5 days Plan discussed with: Other MADISON OTT MD Jun 05, 2024 13:01
[2024-06-05] MEDS: POTASSIUM CHLORIDE 40 MEQ, LIDOCAINE 1% (LOCAL ANESTH.) 4 ML in SODIUM CHL 0.9% 250 ML IV ONE (18:46)
--- NOTE | 2024-06-05 23:00 | DVHPN2 ---
Progress Note - Dictate Date Seen: Jun 05, 2024 Medical Necessity Reason Pt with a Central, PICC or Fol: Yes The following are medically ne: Ordaz Catheter Reason for ordaz catheter: Strict I&O Subjective Patient seen and examined at bedside. Remains on supplemental oxygen Overnight events reviewed. vital signs Vital Sign Date Time Temp Pulse Resp B/P (MAP) Pulse Ox O2 Delivery O2 Flow Rate FiO2 06/05/24 16:54 97.6 67 18 112/70 (84) 94 97.6 06/05/24 07:50 Nasal Cannula* 2 28 Total Intake and Output 06/04/24 06/04/24 06/05/24 15:00 23:00 07:00 Intake Total 625 ml 1120 ml 1520 ml Output Total 900 ml 5 ml Balance 625 ml 220 ml 1515 ml medications Current Medications Medications Dose Ordered Sig/Amanda Route Start Time Stop Time Status Last Admin Dose Admin Nitroglycerin 0.4 mg Q5MINP PRN SL 05/31/24 04:30 Morphine Sulfate 2 mg Q30M PRN IV 05/31/24 04:30 Ondansetron HCl 4 mg Q6HP PRN IV 05/31/24 04:30 Atorvastatin Calcium 40 mg HS PO 05/31/24 22:00 06/05/24 22:08 40 MG Aspirin 81 mg DAILY PO 05/31/24 10:00 06/05/24 09:28 81 MG Hydrocortisone Sodium Succinate 50 mg Q12HR IV 06/02/24 15:00 06/05/24 22:08 50 MG Cholestyramine Resin 4 gm Q6HR PO 06/03/24 18:00 06/05/24 18:46 4 GM Vancomycin HCl 125 mg QID PO 06/03/24 22:00 06/05/24 22:08 125 MG Potassium Chloride/Sodium Chloride 1,000 ml @ 75 mls/hr [id number] IV 06/04/24 12:45 06/05/24 13:52 75 MLS/HR Trazodone HCl 50 mg HS PRN PO 06/04/24 13:50 Midodrine 5 mg DAILY PO 06/05/24 10:00 06/05/24 09:29 5 MG Famotidine 20 mg DAILY PO 06/06/24 10:00 objective Gen.: Patient lying in bed in no apparent distress. On supplemental oxygen. Head: Normocephalic, atraumatic. Eyes: EOMI/PERRLA. Ears: Normal hearing. Normal anatomy. Neck/trachea: Trachea midline, supple. Nose: Normal external anatomy. Mouth: Moist mucous membranes. Chest: Decreased air entry bilaterally. No wheezing or rhonchi. Cardiovascular: Positive S1, positive S2. Regular rate and rhythm. Abdomen: Positive bowel sounds in all 4 quadrants. Soft, non-tender, non- distended. : Deferred. Rectal: Deferred. Skin: Warm, dry. Intact. Extremities: 2+ radial pulses bilaterally. No lower extremity edema. Neuro: Awake, alert, oriented x3. No gross motor or sensory deficits. Cranial nerves II through XII intact. Gait not assessed. laboratory and microbiology Laboratory Tests 06/05/24 06:19 06/04/24 03:29 Test 06/05/24 06:19 Range/Units Serum Glucose 128 H 74-106 mg/dL Assessment/Plan Impression: Dependence on supplemental oxygen Septic shock Clostridium difficile related colitis. [id number] myocardial infarction Lactic acidosis Hypokalemia Left bundle branch block Prolonged QTC Leukocytosis GERD Hyperlipidemia. History of metastatic melanoma. Hx of nicotine dependence Events: Remains on supplemental oxygen, 2 LPM NC Taper O2 as tolerated Continue antibiotics WBC within normal limits On midodrine/hydrocortisone for BP Taper steroids as tolerated Pepcid for GI prophylaxis Monitor renal function. Monitor electrolytes. Supplement as necessary. Potassium supplementation Labs and imaging reviewed. Rest of plan as noted below. Plan: Supplemental oxygen Titrate to keep O2 sats above 92%. Continue antibiotics Taper steroids as tolerated On midodrine/hydrocortisone for blood pressure. Continue statin Monitor renal function. Monitor electrolytes. Supplement as necessary. Potassium supplementation Monitor ins and outs. DVT prophylaxis. Prognosis: Guarded given patient's multiple co-morbidities. Rest of plan per hospitalist and other consultants. Thank you, CARTER Medina, for allowing me to participate in this patient's care. Further recommendations will depend on the patient's clinical course. Please do not hesitate to contact me if you have any questions or concerns. This medical document was created using an electronic medical record system with [employer] system. Although these documentations are being carefully reviewed, there may still be some phonetic and typographical changes. The errors are purely typographical, due to imperfection on the software program, and do not reflect any compromise in the patient's medical care. Dietary Evaluation Review Comments: 1) Advance to cardiac diet when medically feasible 2) Encourage good PO intake 3) Continue to monitor electrolytes Expected Outcomes/Goals: 1) appetite and labs to improve 2) diet to advance 3) f/u in 3-5 days Plan discussed with: Patient, Other (MARE Mujica) NELLIE VEGAS MD Jun 05, 2024 23:00
--- NOTE | 2024-06-05 23:45 | DVHPN2 ---
Consult Progress Note Date Seen: Jun 04, 2024 Subjective Patient reports: Other (azithromycin was stopped due to prolonged QTC , no longer pale or diaphoretic , he states feeling more comfortable and is off all pressures . clinically improving and transfered out of ICU ) Objective vital signs Vital Sign Date Time Temp Pulse Resp B/P (MAP) Pulse Ox O2 Delivery O2 Flow Rate FiO2 06/05/24 16:54 97.6 67 18 112/70 (84) 94 97.6 06/05/24 07:50 Nasal Cannula* 2 28 Total Intake and Output 06/04/24 06/04/24 06/05/24 15:00 23:00 07:00 Intake Total 625 ml 1120 ml 1520 ml Output Total 900 ml 5 ml Balance 625 ml 220 ml 1515 ml medications Current Medications Medications Dose Ordered Sig/Amanda Route Start Time Stop Time Status Last Admin Dose Admin Nitroglycerin 0.4 mg Q5MINP PRN SL 05/31/24 04:30 Morphine Sulfate 2 mg Q30M PRN IV 05/31/24 04:30 Ondansetron HCl 4 mg Q6HP PRN IV 05/31/24 04:30 Atorvastatin Calcium 40 mg HS PO 05/31/24 22:00 06/05/24 22:08 40 MG Aspirin 81 mg DAILY PO 05/31/24 10:00 06/05/24 09:28 81 MG Hydrocortisone Sodium Succinate 50 mg Q12HR IV 06/02/24 15:00 06/05/24 22:08 50 MG Cholestyramine Resin 4 gm Q6HR PO 06/03/24 18:00 06/05/24 18:46 4 GM Vancomycin HCl 125 mg QID PO 06/03/24 22:00 06/05/24 22:08 125 MG Potassium Chloride/Sodium Chloride 1,000 ml @ 75 mls/hr [id number] IV 06/04/24 12:45 06/05/24 13:52 75 MLS/HR Trazodone HCl 50 mg HS PRN PO 06/04/24 13:50 Midodrine 5 mg DAILY PO 06/05/24 10:00 06/05/24 09:29 5 MG Famotidine 20 mg DAILY PO 06/06/24 10:00 Physical Exam general appearance : Tired,Generalized weakness cardiovascular : Tachycardia,Sinus rhythm,No murmurs gastrointestinal : Soft abdomen,Presence of bowel sounds neurological : Normal neurological examination musculoskeletal : Lower extremity sensory and motor intact laboratory and microbiology Laboratory Tests 06/05/24 06:19 06/04/24 03:29 Test 06/05/24 06:19 Range/Units Serum Glucose 128 H 74-106 mg/dL Problem List/Assessment/Plan Problems(with codes): (1) Hammond catheter problem (2) Hypotension (3) Nausea vomiting and diarrhea (4) Hemorrhoids (5) Urinary retention (6) Colitis (7) Dehydration Problem List/Assessment/Plan Problem List : Septic shock Hypovolemic shock Acute colitis ? Due to C diff infection, immunotherapy or radiation therapy induced Acute diarrhea ? C diff infection NSTEMI type 2 likely due to shock Lactic acidosis Severe dehydration Hypokalemia Left bundle branch block Prolonged QTC Assessment: patient is a 48 year old male with a past medical history of malignant melanoma and malignancies on the thigh and diffuse colitis of prior infectious ideologies, esophagitis , on immuno therapy , adrenal insufficiency . taking hydrochloric 2x a day and is on Yurvy immunotherapy and radiation . presents with worsening diarrhea for last 3 weeks , watery and was recently diagnosed with C diff infection 6 months ago and was on vancomycin but continued to have weakness. Patient states had positive C diff test at outpatient facility but was unable to confirm this. temp of 100 at home and now currently on levofed and vasopressin to maintain blood pressures and started on oral vancomycin. Has surgical history of cholecystectomy and gastric bypass and is allergic to penicillins and ciprofloxacin . Patient was tachycardic to 101 and having a fever as high as 99.5 and requiring levofed to keep MAPS in the 60s . whitecount was 14.1, hemoglobin 111 , platelet count 462 , BUN of 8. On physical exam patient was malnourished , weak , diaphoretic with hyperactive bowel sounds and having diarrhea. Patient has been admitted for septic shock . other problems listed on patients problem list include: malignant melanoma , hypovolemic shock , possible c diff infection , acute colitis , acute diarrhea , lactic acidosis , severe dehydration, left branch block . prolonged QTC above [address] abdomen and pelvis shows patient with finding of moderate diffuse fluid filled distended loops of the colon , moderate colonic ball wall thickening involving the descending colon. finding concerning for diarrhea and colitis . Plan would be to follow up on stool culture , was notified by lab that stool is positive for camperabactor antigen so will start patient on azithromycin 500 milligrams daily, will require a prolonged course given he is immunocompromised . Continue hydrocortisone , recommend endocrinology consult to see if patients in need of stressosteroids , recommend consulting hematology and oncology to evaluate chemotherapy and or immunotherapy is resulting in patients diarrhea and colitis symptoms . follow up on blood and urine cultures givent hat patient is immunocompromised from recent chemotherapy would continue patient on broadened antibiotic therapy with vancomycin and cefepime , continue IV flagyl . NPO vancomycin for presumed c diff colitis until results have returned . defer management of Nstemy to primary team. 2/5: Patient is coming down off levofed and had 1 large bowel movement this morning but still watery , no fevers . whitecount is 9.8 and clinically patients abdomen is still distended therefore will continue patient on broad antibiotic treatments . continue vancomycin and cefepine, continue IV flagyl and vancomycin , azithromycin. recommend evaluation for hematology oncology to see if chemotherapy and immunotherapy is related to patient colitis and diarrhea symptoms 2/6: feeling better and had only 1 bowel movement and appearing more euvolemic , better hydration and good capillary refill but is still intermittently tachycardic but diarrhea is improving . Plan would be to continue azithromycin and cefepime . C diff testing was negative so can discontinue all forms of vancomycin and decrease pressures as patients BP is improving and defer to primary team for management of steroid use 2: oral vancomycin was restarted due to patient having 2 loose bowel movements but not having any abdominal pain and abdominal distention has resolved . Plan would be to continue cefepime and azithromycin . if patients diarrhea improves in the next 24-48 hours would highly recommend discontinuing oral vancomycin as patient soto not demonstrate a positive C diff test that would be consistent with a c diff diagnosis 2: doing better clinically and transferred out of the ICU Plan: - would recommend stopping Po Vancomycin as patient doesnt have an active C diff test -continue IV antibiotic with cefepime and azithromycin. Discontinued vancomycin and metronidazole given C diff is negative. -patient came positive for Campylobacter, negative for shiga toxin. Continue IV azithromycin 500 mg once daily, recommend continue follow-up daily EKG for prolonged QTC. -Rigorous IV fluid resuscitation. And maintain map gradient 65, continued to be on vasopressor. -CT abdominal pelvis:Findings are suspicious for diarrhea/ colitis. -recommend Hematology Oncology consultation given possible diarrhea likely due to immunotherapy and radiation, patient receives treatment Hematology Oncology Service at [facility] [place] -continue cardiology recommendation: Prolonged QTC, LBB, we will in continue azithromycin for now, continue to monitor QTC, recommend regular daily EKG. -recommend stress dose corticosteroids, as per patient he takes hydrocortisone 10 mg p.o. twice daily for adrenal insufficiency. -continue closely follow up. Plan discussed with: Other Dietary Evaluation Review Comments: 1) Advance to cardiac diet when medically feasible 2) Encourage good PO intake 3) Continue to monitor electrolytes Expected Outcomes/Goals: 1) appetite and labs to improve 2) diet to advance 3) f/u in 3-5 days DEBORAH MÉNDEZ MD Jun 05, 2024 23:45
--- NOTE | 2024-06-05 23:45 | DVHPN2 ---
Consult Progress Note Date Seen: Jun 05, 2024 Subjective Patient reports: Other (off azithromycin and not having any diarrhea , patient had 3 bowel movements over Thursday that are mostly formed , has a right buttock ulcer that is not causing pain and no draining ) Objective vital signs Vital Sign Date Time Temp Pulse Resp B/P (MAP) Pulse Ox O2 Delivery O2 Flow Rate FiO2 06/05/24 16:54 97.6 67 18 112/70 (84) 94 97.6 06/05/24 07:50 Nasal Cannula* 2 28 Total Intake and Output 06/04/24 06/04/24 06/05/24 15:00 23:00 07:00 Intake Total 625 ml 1120 ml 1520 ml Output Total 900 ml 5 ml Balance 625 ml 220 ml 1515 ml medications Current Medications Medications Dose Ordered Sig/Amanda Route Start Time Stop Time Status Last Admin Dose Admin Nitroglycerin 0.4 mg Q5MINP PRN SL 05/31/24 04:30 Morphine Sulfate 2 mg Q30M PRN IV 05/31/24 04:30 Ondansetron HCl 4 mg Q6HP PRN IV 05/31/24 04:30 Atorvastatin Calcium 40 mg HS PO 05/31/24 22:00 06/05/24 22:08 40 MG Aspirin 81 mg DAILY PO 05/31/24 10:00 06/05/24 09:28 81 MG Hydrocortisone Sodium Succinate 50 mg Q12HR IV 06/02/24 15:00 06/05/24 22:08 50 MG Cholestyramine Resin 4 gm Q6HR PO 06/03/24 18:00 06/05/24 18:46 4 GM Vancomycin HCl 125 mg QID PO 06/03/24 22:00 06/05/24 22:08 125 MG Potassium Chloride/Sodium Chloride 1,000 ml @ 75 mls/hr [id number] IV 06/04/24 12:45 06/05/24 13:52 75 MLS/HR Trazodone HCl 50 mg HS PRN PO 06/04/24 13:50 Midodrine 5 mg DAILY PO 06/05/24 10:00 06/05/24 09:29 5 MG Famotidine 20 mg DAILY PO 06/06/24 10:00 Physical Exam general appearance : Tired,Generalized weakness cardiovascular : Tachycardia,Sinus rhythm,No murmurs gastrointestinal : Soft abdomen,Presence of bowel sounds neurological : Normal neurological examination musculoskeletal : Lower extremity sensory and motor intact laboratory and microbiology Laboratory Tests 06/05/24 06:19 06/04/24 03:29 Test 06/05/24 06:19 Range/Units Serum Glucose 128 H 74-106 mg/dL Problem List/Assessment/Plan Problems(with codes): (1) Urinary retention (2) Hemorrhoids (3) Ordaz catheter problem (4) Hypotension (5) Nausea vomiting and diarrhea (6) Colitis Problem List/Assessment/Plan Problem List : Septic shock Hypovolemic shock Acute colitis ? Due to C diff infection, immunotherapy or radiation therapy induced Acute diarrhea ? C diff infection NSTEMI type 2 likely due to shock Lactic acidosis Severe dehydration Hypokalemia Left bundle branch block Prolonged QTC Assessment: patient is a 48 year old male with a past medical history of malignant melanoma and malignancies on the thigh and diffuse colitis of prior infectious ideologies, esophagitis , on immuno therapy , adrenal insufficiency . taking hydrochloric 2x a day and is on Yurvy immunotherapy and radiation . presents with worsening diarrhea for last 3 weeks , watery and was recently diagnosed with C diff infection 6 months ago and was on vancomycin but continued to have weakness. Patient states had positive C diff test at outpatient facility but was unable to confirm this. temp of 100 at home and now currently on levofed and vasopressin to maintain blood pressures and started on oral vancomycin. Has surgical history of cholecystectomy and gastric bypass and is allergic to penicillins and ciprofloxacin . Patient was tachycardic to 101 and having a fever as high as 99.5 and requiring levofed to keep MAPS in the 60s . whitecount was 14.1, hemoglobin 111 , platelet count 462 , BUN of 8. On physical exam patient was malnourished , weak , diaphoretic with hyperactive bowel sounds and having diarrhea. Patient has been admitted for septic shock . other problems listed on patients problem list include: malignant melanoma , hypovolemic shock , possible c diff infection , acute colitis , acute diarrhea , lactic acidosis , severe dehydration, left branch block . prolonged QTC above [address] abdomen and pelvis shows patient with finding of moderate diffuse fluid filled distended loops of the colon , moderate colonic ball wall thickening involving the descending colon. finding concerning for diarrhea and colitis . Plan would be to follow up on stool culture , was notified by lab that stool is positive for camperabactor antigen so will start patient on azithromycin 500 milligrams daily, will require a prolonged course given he is immunocompromised . Continue hydrocortisone , recommend endocrinology consult to see if patients in need of stressosteroids , recommend consulting hematology and oncology to evaluate chemotherapy and or immunotherapy is resulting in patients diarrhea and colitis symptoms . follow up on blood and urine cultures givent hat patient is immunocompromised from recent chemotherapy would continue patient on broadened antibiotic therapy with vancomycin and cefepime , continue IV flagyl . NPO vancomycin for presumed c diff colitis until results have returned . defer management of Nstemy to primary team. 2/: Patient is coming down off levofed and had 1 large bowel movement this morning but still watery , no fevers . whitecount is 9.8 and clinically patients abdomen is still distended therefore will continue patient on broad antibiotic treatments . continue vancomycin and cefepine, continue IV flagyl and vancomycin , azithromycin. recommend evaluation for hematology oncology to see if chemotherapy and immunotherapy is related to patient colitis and diarrhea symptoms 2/: feeling better and had only 1 bowel movement and appearing more euvolemic , better hydration and good capillary refill but is still intermittently tachycardic but diarrhea is improving . Plan would be to continue azithromycin and cefepime . C diff testing was negative so can discontinue all forms of vancomycin and decrease pressures as patients BP is improving and defer to primary team for management of steroid use 2: oral vancomycin was restarted due to patient having 2 loose bowel movements but not having any abdominal pain and abdominal distention has resolved . Plan would be to continue cefepime and azithromycin . if patients diarrhea improves in the next 24-48 hours would highly recommend discontinuing oral vancomycin as patient soto not demonstrate a positive C diff test that would be consistent with a c diff diagnosis 06/04: doing better clinically and transferred out of the ICU 06/05: diarrhea appears to be resolvign and ordaz appears to be draining clear urine , whitecount is 8.1 Plan: - would recommend stopping Po Vancomycin as patient doesnt have an active C diff test -continue IV antibiotic with cefepime and azithromycin. Discontinued vancomycin and metronidazole given C diff is negative. -patient came positive for Campylobacter, negative for shiga toxin. Continue IV azithromycin 500 mg once daily, recommend continue follow-up daily EKG for prolonged QTC. -Rigorous IV fluid resuscitation. And maintain map gradient 65, continued to be on vasopressor. -CT abdominal pelvis:Findings are suspicious for diarrhea/ colitis. -recommend Hematology Oncology consultation given possible diarrhea likely due to immunotherapy and radiation, patient receives treatment Hematology Oncology Service at [facility] [place] -continue cardiology recommendation: Prolonged QTC, LBB, we will in continue azithromycin for now, continue to monitor QTC, recommend regular daily EKG. -recommend stress dose corticosteroids, as per patient he takes hydrocortisone 10 mg p.o. twice daily for adrenal insufficiency. -continue closely follow up. Plan discussed with: Other Dietary Evaluation Review Comments: 1) Advance to cardiac diet when medically feasible 2) Encourage good PO intake 3) Continue to monitor electrolytes Expected Outcomes/Goals: 1) appetite and labs to improve 2) diet to advance 3) f/u in 3-5 days DEBORAH MÉNDEZ MD Jun 05, 2024 23:45
[2024-06-06] VITALS (7 sets, daily range): BP systolic 111–128; BP diastolic 64–78; PULSE 65–73; RESP 16–20; TEMP 97.5–98.7; O2SAT 94–98
[2024-06-06] MEDS: traZODone HCL 50 MG TAB PO PRN (00:24)
[2024-06-06 07:44] LABS: Sodium 141 mmol/L (136-145)
[2024-06-06 07:45] LABS: Anion Gap 9 (5-15); Carbon Dioxide 23 mmol/L (20-31)
[2024-06-06 07:50] LABS: Calcium 8.2 mg/dL (8.7-10.4); Chloride 109 mmol/L (98-107); Glucose 134 mg/dL (74-106); Potassium 3.4 mmol/L (3.5-5.1)
[2024-06-06 07:51] LABS: BUN/Creatinine Ratio 11.8 (10.0-20.0); Blood Urea Nitrogen 9 mg/dL (9-23)
[2024-06-06] MEDS: FAMOTIDINE 20 MG TAB PO SCH (09:47)
[2024-06-06] MEDS: POTASSIUM CHL 20MEQ/100ML 100 ML IV ONE (14:09)
--- NOTE | 2024-06-06 14:09 | DVHPN2 ---
Progress Note - Dictate Date Seen: Jun 06, 2024 Medical Necessity Reason Pt with a Central, PICC or Fol: Yes The following are medically ne: Ordaz Catheter Reason for ordaz catheter: Strict I&O Subjective Tolerating regular diet. No complaints. Stool is semi-formed and soft. vital signs Vital Sign Date Time Temp Pulse Resp B/P (MAP) Pulse Ox O2 Delivery O2 Flow Rate FiO2 06/06/24 13:00 98.0 69 17 115/76 (89) 94 98.0 06/06/24 08:00 Nasal Cannula* 2 28 Total Intake and Output 06/05/24 06/05/24 06/06/24 15:00 23:00 07:00 Intake Total 1974 ml 400 ml Output Total 400 ml 400 ml Balance 1574 ml 0 ml medications Current Medications Medications Dose Ordered Sig/Amanda Route Start Time Stop Time Status Last Admin Dose Admin Nitroglycerin 0.4 mg Q5MINP PRN SL 05/31/24 04:30 Morphine Sulfate 2 mg Q30M PRN IV 05/31/24 04:30 Ondansetron HCl 4 mg Q6HP PRN IV 05/31/24 04:30 Atorvastatin Calcium 40 mg HS PO 05/31/24 22:00 06/05/24 22:08 40 MG Aspirin 81 mg DAILY PO 05/31/24 10:00 06/06/24 09:47 81 MG Cholestyramine Resin 4 gm Q6HR PO 06/03/24 18:00 06/06/24 12:11 4 GM Trazodone HCl 50 mg HS PRN PO 06/04/24 13:50 06/06/24 00:24 50 MG Midodrine 5 mg DAILY PO 06/05/24 10:00 06/06/24 09:47 5 MG Famotidine 20 mg DAILY PO 06/06/24 10:00 06/06/24 09:47 20 MG Hydrocortisone 20 mg BID PO 06/06/24 22:00 UNV objective Alert awake oriented x3. Comfortable in bed without distress. HEENT neck supple no JVD. Heart regular rate and rhythm S1-S2. Lungs fair air movement without rales wheezes. Abdomen soft tympanic to palpation nontender positive bowel sounds. Extremities trace edema around the ankles. Positive pulses. laboratory and microbiology Laboratory Tests 06/06/24 07:18 06/04/24 03:29 Test 06/06/24 07:18 Range/Units Serum Glucose 134 H 74-106 mg/dL Assessment/Plan Discussed with the Infectious Disease doctor Flaco. Continue present antibiotics while in the hospital. Upon discharge recommending no further antibiotics. We will replace his potassium today. Stop the fluids. Physical therapy and out of bed ambulate. If he remains stable consider discharge home tomorrow. Discussed with the patient's nurse at bedside regarding care plan. Problems(with codes): (1) Hypotension (2) Nausea vomiting and diarrhea (3) Colitis (4) Dehydration Dietary Evaluation Review Comments: 1) Advance to cardiac diet when medically feasible 2) Encourage good PO intake 3) Continue to monitor electrolytes Expected Outcomes/Goals: 1) appetite and labs to improve 2) diet to advance 3) f/u in 3-5 days Plan discussed with: Patient MADISON OTT MD Jun 06, 2024 14:09
[2024-06-06] MEDS: POTASSIUM CHL 20 Meq TABLET PO ONE (16:41)
[2024-06-06] MEDS: HYDROCORTISONE 10 MG TAB PO SCH (18:10)
--- NOTE | 2024-06-06 19:49 | DVHPN2 ---
Progress Note - Dictate Date Seen: Jun 06, 2024 Medical Necessity Reason Pt with a Central, PICC or Fol: Yes The following are medically ne: Ordaz Catheter Reason for ordaz catheter: Strict I&O Subjective Patient seen and examined at bedside. Remains on supplemental oxygen Overnight events reviewed. vital signs Vital Sign Date Time Temp Pulse Resp B/P (MAP) Pulse Ox O2 Delivery O2 Flow Rate FiO2 06/06/24 17:00 98.2 71 18 117/73 (88) 97 98.2 06/06/24 08:00 Nasal Cannula* 2 28 Total Intake and Output 06/05/24 06/05/24 06/06/24 15:00 23:00 07:00 Intake Total 1974 ml 400 ml Output Total 400 ml 400 ml Balance 1574 ml 0 ml medications Current Medications Medications Dose Ordered Sig/Amadna Route Start Time Stop Time Status Last Admin Dose Admin Nitroglycerin 0.4 mg Q5MINP PRN SL 05/31/24 04:30 Morphine Sulfate 2 mg Q30M PRN IV 05/31/24 04:30 Ondansetron HCl 4 mg Q6HP PRN IV 05/31/24 04:30 Atorvastatin Calcium 40 mg HS PO 05/31/24 22:00 06/05/24 22:08 40 MG Aspirin 81 mg DAILY PO 05/31/24 10:00 06/06/24 09:47 81 MG Cholestyramine Resin 4 gm Q6HR PO 06/03/24 18:00 06/06/24 18:10 4 GM Trazodone HCl 50 mg HS PRN PO 06/04/24 13:50 06/06/24 00:24 50 MG Midodrine 5 mg DAILY PO 06/05/24 10:00 06/06/24 09:47 5 MG Famotidine 20 mg DAILY PO 06/06/24 10:00 06/06/24 09:47 20 MG Hydrocortisone 20 mg BIDWM PO 06/06/24 18:00 06/06/24 18:10 20 MG objective Gen.: Patient lying in bed in no apparent distress. On supplemental oxygen. Head: Normocephalic, atraumatic. Eyes: EOMI/PERRLA. Ears: Normal hearing. Normal anatomy. Neck/trachea: Trachea midline, supple. Nose: Normal external anatomy. Mouth: Moist mucous membranes. Chest: Decreased air entry bilaterally. No wheezing or rhonchi. Cardiovascular: Positive S1, positive S2. Regular rate and rhythm. Abdomen: Positive bowel sounds in all 4 quadrants. Soft, non-tender, non- distended. : Deferred. Rectal: Deferred. Skin: Warm, dry. Intact. Extremities: 2+ radial pulses bilaterally. No lower extremity edema. Neuro: Awake, alert, oriented x3. No gross motor or sensory deficits. Cranial nerves II through XII intact. Gait not assessed. laboratory and microbiology Laboratory Tests 06/06/24 07:18 06/04/24 03:29 Test 06/06/24 07:18 Range/Units Serum Glucose 134 H 74-106 mg/dL Assessment/Plan Impression: Dependence on supplemental oxygen Septic shock Clostridium difficile related colitis. [id number] myocardial infarction Lactic acidosis Hypokalemia Left bundle branch block Prolonged QTC Leukocytosis GERD Hyperlipidemia. History of metastatic melanoma. Hx of nicotine dependence Events: Remains on supplemental oxygen, 2 LPM NC Taper O2 as tolerated No new complaints. Incentive spirometry Continue antibiotics On midodrine/hydrocortisone for BP Taper steroids as tolerated Pepcid for GI prophylaxis Monitor renal function. Monitor electrolytes. Supplement as necessary. Potassium supplementation Labs and imaging reviewed. Rest of plan as noted below. Plan: Supplemental oxygen Titrate to keep O2 sats above 92%. Continue antibiotics Taper steroids as tolerated On midodrine/hydrocortisone for blood pressure. Continue statin Monitor renal function. Monitor electrolytes. Supplement as necessary. Potassium supplementation Monitor ins and outs. DVT prophylaxis. Prognosis: Guarded given patient's multiple co-morbidities. Rest of plan per hospitalist and other consultants. Thank you, CARTER Medina, for allowing me to participate in this patient's care. Further recommendations will depend on the patient's clinical course. Please do not hesitate to contact me if you have any questions or concerns. This medical document was created using an electronic medical record system with [employer] dictation system. Although these documentations are being carefully reviewed, there may still be some phonetic and typographical changes. The errors are purely typographical, due to imperfection on the software program, and do not reflect any compromise in the patient's medical care. Dietary Evaluation Review Comments: 1) Advance to cardiac diet when medically feasible 2) Encourage good PO intake 3) Continue to monitor electrolytes Expected Outcomes/Goals: 1) appetite and labs to improve 2) diet to advance 3) f/u in 3-5 days Plan discussed with: Patient, Other (MARE Mtz) NELLIE VEGAS MD Jun 06, 2024 19:49
--- NOTE | 2024-06-07 00:48 | DVHPN2 ---
Consult Progress Note Date Seen: Jun 06, 2024 Subjective Patient reports: Other (cefepine was discontinued and patient appears to tolerate well , alert and oriented , not diaphoretic , bowel movements are greenish black and slightly large in volume ) Objective vital signs Vital Sign Date Time Temp Pulse Resp B/P (MAP) Pulse Ox O2 Delivery O2 Flow Rate FiO2 06/06/24 20:00 Nasal Cannula* 2 28 06/06/24 17:00 98.2 71 18 117/73 (88) 97 98.2 Total Intake and Output 06/06/24 06/06/24 06/07/24 15:00 23:00 07:00 Intake Total 700 ml Balance 700 ml medications Current Medications Medications Dose Ordered Sig/Amanda Route Start Time Stop Time Status Last Admin Dose Admin Nitroglycerin 0.4 mg Q5MINP PRN SL 05/31/24 04:30 Morphine Sulfate 2 mg Q30M PRN IV 05/31/24 04:30 Ondansetron HCl 4 mg Q6HP PRN IV 05/31/24 04:30 Atorvastatin Calcium 40 mg HS PO 05/31/24 22:00 06/06/24 21:41 40 MG Aspirin 81 mg DAILY PO 05/31/24 10:00 06/06/24 09:47 81 MG Cholestyramine Resin 4 gm Q6HR PO 06/03/24 18:00 06/06/24 23:26 4 GM Trazodone HCl 50 mg HS PRN PO 06/04/24 13:50 06/06/24 00:24 50 MG Midodrine 5 mg DAILY PO 06/05/24 10:00 06/06/24 09:47 5 MG Famotidine 20 mg DAILY PO 06/06/24 10:00 06/06/24 09:47 20 MG Hydrocortisone 20 mg BIDWM PO 06/06/24 18:00 06/06/24 18:10 20 MG Physical Exam general appearance : Tired,Generalized weakness cardiovascular : Tachycardia,Sinus rhythm,No murmurs gastrointestinal : Soft abdomen,Presence of bowel sounds neurological : Normal neurological examination musculoskeletal : Lower extremity sensory and motor intact laboratory and microbiology Laboratory Tests 06/06/24 07:18 06/04/24 03:29 Test 06/06/24 07:18 Range/Units Serum Glucose 134 H 74-106 mg/dL Problem List/Assessment/Plan Problems(with codes): (1) Acute coronary syndrome (2) Dehydration (3) Colitis (4) Urinary retention (5) Hemorrhoids (6) Ordaz catheter problem (7) Hypotension Problem List/Assessment/Plan Problem List : Septic shock Hypovolemic shock Acute colitis ? Due to C diff infection, immunotherapy or radiation therapy induced Acute diarrhea ? C diff infection NSTEMI type 2 likely due to shock Lactic acidosis Severe dehydration Hypokalemia Left bundle branch block Prolonged QTC Assessment: patient is a 48 year old male with a past medical history of malignant melanoma and malignancies on the thigh and diffuse colitis of prior infectious ideologies, esophagitis , on immuno therapy , adrenal insufficiency . taking hydrochloric 2x a day and is on Yurvy immunotherapy and radiation . presents with worsening diarrhea for last 3 weeks , watery and was recently diagnosed with C diff infection 6 months ago and was on vancomycin but continued to have weakness. Patient states had positive C diff test at outpatient facility but was unable to confirm this. temp of 100 at home and now currently on levofed and vasopressin to maintain blood pressures and started on oral vancomycin. Has surgical history of cholecystectomy and gastric bypass and is allergic to penicillins and ciprofloxacin . Patient was tachycardic to 101 and having a fever as high as 99.5 and requiring levofed to keep MAPS in the 60s . whitecount was 14.1, hemoglobin 111 , platelet count 462 , BUN of 8. On physical exam patient was malnourished , weak , diaphoretic with hyperactive bowel sounds and having diarrhea. Patient has been admitted for septic shock . other problems listed on patients problem list include: malignant melanoma , hypovolemic shock , possible c diff infection , acute colitis , acute diarrhea , lactic acidosis , severe dehydration, left branch block . prolonged QTC above [address] abdomen and pelvis shows patient with finding of moderate diffuse fluid filled distended loops of the colon , moderate colonic ball wall thickening involving the descending colon. finding concerning for diarrhea and colitis . Plan would be to follow up on stool culture , was notified by lab that stool is positive for camperabactor antigen so will start patient on azithromycin 500 milligrams daily, will require a prolonged course given he is immunocompromised . Continue hydrocortisone , recommend endocrinology consult to see if patients in need of stressosteroids , recommend consulting hematology and oncology to evaluate chemotherapy and or immunotherapy is resulting in patients diarrhea and colitis symptoms . follow up on blood and urine cultures givent hat patient is immunocompromised from recent chemotherapy would continue patient on broadened antibiotic therapy with vancomycin and cefepime , continue IV flagyl . NPO vancomycin for presumed c diff colitis until results have returned . defer management of Nstemy to primary team. 2: Patient is coming down off levofed and had 1 large bowel movement this morning but still watery , no fevers . whitecount is 9.8 and clinically patients abdomen is still distended therefore will continue patient on broad antibiotic treatments . continue vancomycin and cefepine, continue IV flagyl and vancomycin , azithromycin. recommend evaluation for hematology oncology to see if chemotherapy and immunotherapy is related to patient colitis and diarrhea symptoms 2: feeling better and had only 1 bowel movement and appearing more euvolemic , better hydration and good capillary refill but is still intermittently tachycardic but diarrhea is improving . Plan would be to continue azithromycin and cefepime . C diff testing was negative so can discontinue all forms of vancomycin and decrease pressures as patients BP is improving and defer to primary team for management of steroid use 06/03: oral vancomycin was restarted due to patient having 2 loose bowel movements but not having any abdominal pain and abdominal distention has resolved . Plan would be to continue cefepime and azithromycin . if patients diarrhea improves in the next 24-48 hours would highly recommend discontinuing oral vancomycin as patient soto not demonstrate a positive C diff test that would be consistent with a c diff diagnosis 06/04: doing better clinically and transferred out of the ICU 06/05: diarrhea appears to be resolvign and ordaz appears to be draining clear urine , whitecount is 8.1 06/06: patients bowel movements are slightly higher since stopping azithromycin however not having diarrhea , whitecount is normal , cefapime has been stopped yesterday Plan: - would recommend stopping Oral Vancomycin as patient doesnt have an active C diff - will monitor patient off all antibiotics , if diarrhea recurs would restart azithromycin at least orally and hope QTC does not prolong , can hold off for now - no plans to discharge patients on any antibiotics at this time -patient came positive for Campylobacter, negative for shiga toxin. -Rigorous IV fluid resuscitation. And maintain map gradient 65, continued to be on vasopressor. -recommend Hematology Oncology consultation given possible diarrhea likely due to immunotherapy and radiation, patient receives treatment Hematology Oncology Service at [facility] -continue cardiology recommendation: Prolonged QTC, LBB, we will in continue azithromycin for now, continue to monitor QTC, recommend regular daily EKG. -recommend stress dose corticosteroids, as per patient he takes hydrocortisone 10 mg p.o. twice daily for adrenal insufficiency. -continue closely follow up. Plan discussed with: Patient, Other Dietary Evaluation Review Comments: 1) Advance to cardiac diet when medically feasible 2) Encourage good PO intake 3) Continue to monitor electrolytes Expected Outcomes/Goals: 1) appetite and labs to improve 2) diet to advance 3) f/u in 3-5 days DEBORAH MÉNDEZ MD Jun 07, 2024 00:48
[2024-06-07 01:00] VITALS: BP_SYST 109; BP_SYST 124; BP_DIAS 72; BP_DIAS 79; PULSE 69; PULSE 78; RESP 16; RESP 18; TEMP 98; TEMP 98.5; O2SAT 94; O2SAT 95
[2024-06-07 05:00] VITALS: BP 122/74; PULSE 75; RESP 18; TEMP 98; O2SAT 96
[2024-06-07 08:00] VITALS: BP 110/71; PULSE 60; RESP 16; TEMP 98.5; O2SAT 95
[2024-06-07 08:35] LABS: Anion Gap 6 (5-15); Carbon Dioxide 26 mmol/L (20-31); Sodium 141 mmol/L (136-145)
[2024-06-07 08:41] LABS: Blood Urea Nitrogen 9 mg/dL (9-23)
[2024-06-07 08:56] LABS: Calcium 8.4 mg/dL (8.7-10.4); Chloride 109 mmol/L (98-107); Glucose 106 mg/dL (74-106); Potassium 3.3 mmol/L (3.5-5.1)
[2024-06-07 12:56] VITALS: BP 111/72; PULSE 71; RESP 14; TEMP 98.1; O2SAT 96
[2024-06-07] MEDS ORDERED: MID10T PO (16:22)
[2024-06-07] MEDS ORDERED: CHL4PW PO (16:22)
--- NOTE | 2024-06-07 16:24 | DVHDS2 ---
Discharge Summary Date of Admission May 31, 2024 at 04:29 Date of Discharge: Jun 07, 2024 Labs/Diagnostic Data: Laboratory Results Test 06/07/24 06:38 06/06/24 00:00 06/05/24 06:19 06/04/24 03:29 Sodium Level 141 mmol/L (136-145) Potassium Level 3.3 mmol/L (3.5-5.1) Chloride Level 109 mmol/L (98-107) Carbon Dioxide Level 26 mmol/L (20-31) Anion Gap 6 (5-15) Blood Urea Nitrogen 9 mg/dL (9-23) Creatinine 0.60 mg/dL (0.700-1.30) Glomerular Filtration Rate Calc 118 mL/min (>90) BUN/Creatinine Ratio 15.0 (10.0-20.0) Serum Glucose 106 mg/dL (74-106) Calcium Level 8.4 mg/dL (8.7-10.4) Stool Occult Blood Negative (Negative) Stool Occult Blood Sample #3 (Negative) Magnesium Level 2.2 mg/dL (1.6-2.6) White Blood Count 8.1 10^3/uL (4.4-10.8) Red Blood Count 3.49 10^6/uL (4.5-5.90) Hemoglobin 10.2 g/dL (13.5-17.5) Hematocrit 30.2 % (41.0-53.0) Mean Corpuscular Volume 86.3 fL (80.0-100.0) Mean Corpuscular Hemoglobin 29.1 pg (28.0-32.0) Mean Corpuscular Hemoglobin Concent 33.7 g/dL (32.0-36.0) Red Cell Distribution Width 14.5 % (11.8-14.3) Platelet Count 339 10^3/uL (140-450) Mean Platelet Volume 7.7 fL (6.9-10.8) Neutrophils (%) (Auto) % (37.0-80.0) Lymphocytes (%) (Auto) % (10.0-50.0) Monocytes (%) (Auto) % (0.0-12.0) Basophils (%) (Auto) % (0.0-2.0) Neutrophils # (Auto) 10 ^3/uL (1.6-8.6) Lymphocytes # (Auto) 10 ^3/uL (0.4-5.4) Monocytes # (Auto) 10 ^3/uL (0-1.3) Differential Total Cells Counted 100.0 (100) Neutrophils % (Manual) 73 (37.0-80.0) Band Neutrophils % (Manual) 7 Lymphocytes % (Manual) 20 (10.0-50.0) Monocytes % (Manual) 0 (0-12) Eosinophils % (Manual) 0 (0-7) Basophils % (Manual) 0 (0.0-2.0) Metamyelocytes % (manual) 0 Myelocytes % (Manual) 0 Promyelocytes % (Manual) 0 Blast Cells % (Manual) 0 Reactive Lymphocytes 0 Platelet Estimate Adequate Test 06/02/24 07:12 06/02/24 04:40 06/02/24 00:00 05/31/24 11:43 Vancomycin Level Trough 7.1 ug/mL (5-10) Eosinophils (%) (Auto) 8.7 % (0.0-7.0) Eosinophils # (Auto) 0.5 10 ^3/uL (0-0.8) Basophils # (Auto) 0 10 ^3/uL (0-0.2) Nucleated Red Blood Cells 0.0 % Miscellaneous Referred Test (Refrg) Sent to [facility] Stool for White Cells Moderate Test 05/31/24 08:38 05/31/24 04:52 05/31/24 02:16 05/30/24 22:45 POC Glucose 94 mg/dl (70-106) Lactic Acid Level 2.0 mmol/L (0.4-2.0) Troponin I High Sensitivity 703 ng/L (</=54) Urine Color Yellow (Yellow) Urine Clarity Clear (Clear) Urine pH 6.0 (5.0-9.0) Urine Specific [place] 1.021 (1.001-1.035) Urine Protein 1+ (Negative) Urine Ketones 2+ (Negative) Urine Blood 1+ /uL (Negative) Urine Nitrite Negative (Negative) Urine Bilirubin Negative (Negative) Urine Urobilinogen Normal mg/dL (Negative) Urine Leukocyte Esterase Negative /uL (Negative) Urine RBC 5 /hpf (0 - 3) Urine Microscopic WBC 1 /HPF (0-3) Urine Squamous Epithelial Cells Few /hpf (<5) Urine Bacteria None seen /hpf (None Seen) Urine Hyaline Casts Few /lpf (0 - 2) Urine Glucose Normal mg/dL (Normal) Total Bilirubin 1.0 mg/dL (0.2-1.0) Aspartate Amino Transferase (AST) 56 U/L (13-40) Alanine Aminotransferase (ALT) 42 U/L (7-40) Alkaline Phosphatase 513 U/L (46-116) Total Protein 7.4 g/dL (5.7-8.2) Albumin 4.0 g/dL (3.2-4.8) Other Laboratory Tests 06/07/24 06:38 06/04/24 03:29 Brief Hx & Hospital Course: Mr. Rolando Lu is a 48 year old male who presents with a chief complaint of chills and generalized weakness. Patient endorses having chills intermittently for the past 2x weeks, with additional onset of weakness all day, yesterday. Patient reports he started vancomycin, yesterday following recent C. Diff diagnosis. Patient CT abdomen and pelvis resulted Findings are suspicious for diarrhea/ colitis. Patient WBC 14.1, H&H 11/34.2, Platelets 462, Na 133, K 3.5, BUN 9/1.09, Lactic 3.5, 1.9, AST 56, ALT 42, ALP 513, Troponin 461, 563. Patient admitted for further evaluation. He is admitted and noted to be in hypotensive shock. Therefore he is admitted to the ICU started on pressors. Patient received aggressive IV hydration. Started on empiric IV antibiotics. His final blood and urine cultures came back negative for any bacterial infection or growth. Patient has a known hypotension on chronic midodrine and hydrocortisone. Therefore these were continued while in the hospital. Patient empirically treated with vancomycin p.o. for possible C diff colitis. Patient has also received broad-spectrum antibiotics initially however once cultures are back these were discontinued. With hydration his blood pressure has normalized. Patient diarrhea has significantly improved with oral Questran. Patient is counseled and educated regarding his chronic diarrhea and advised to continue the medications as prescribed and have a close follow up with his primary care physician. While in the hospital patient otherwise clinically stable. Blood pressure is normal. Getting out of bed ambulating. Given patient's condition is improved back to normal baseline status series felt he could be safely discharged home. I have talked with the patient on multiple occasions during this hospitalization regarding his hospital diagnosis, treatment he received, and today regarding discharge medications and discharge instructions and follow-up plan of care. He has verbalized understanding of these and agree with the discharge care plan as mentioned. Operations or Procedures EXAM: Two-dimensional and M-mode echocardiogram with Doppler and color Doppler. Blood Pressure: 109/66 mmHg INDICATION NSTEMI RISK FACTORS Height: 74, Weight: 193 DIMENSIONS LVDd 5.7 (3.8-5.7cm) LA (2D) 4.2 (1.9-4.0cm) Aortic Root 3.7 (2.0- 3.7cm) LVDs 5.0 (2.5-4.0cm) LA (MM) (1.9-4.0cm) Aortic Cusp Exc 2.0 (1.5- 2.0cm) EF (%) 25.0 (55-70%) Rt. Atrium 4.5 (1.9-4.0cm) Asc. Aorta cm IVSd 1.0 (0.7-1.1cm) RV (D) (1.8-2.4cm) PWd 0.8 (0.7-1.1cm) Mitral Valve Mitral Mitral Stenosis E wave 0.80m/s MV Mean GR. mmHg A wave 1.00m/s MV Peak GR. 110mmHg E/A ratio 0.8 2D MVA cm2 DECEL Time 142ms PRESS 1/2 Time 56ms IVRT ms Dop MVA 3.92cm2 Aortic Valve Aortic Valve Aortic Stenosis V1 0.97m/s AO Mean GR. 4mmHg V2 1.31m/s AO Peak GR. 7mmHg LVOT Diameter 2.2 (1.8-2.4cm) Doppler DIMITRI 2.81cm2 Pulmonic Valve V2 0.82m/s Tricuspid Valve TR Velocity 2.30m/s RVSP 32mmHg Other Information Technically limited study due to body habitus and patient laying flat on his back. Conclusion lvef 25-30% by visual estimate abnormal septal motion c/w LBBB dilated LV normal RV function left atrium mild enlarged no severe valve abnormalities noted SIGNED BY: ALEENA ROACH MD SIGNED DATE/TIME: 05/31/24 7100 Condition at Discharge: Stable Final Diagnosis/Problems List Diarrhea, colitis, chronic hypotension on midodrine Discharge Disposition: Home Discharge Instruct/Medications Diet: Consistent carbohydrate, Cardiac 2g Na,low cholest Activity: No Restrictions, As Tolerated Follow Up/Referral: Primary care physician after two weeks for blood pressure check and diarrhea follow up evaluation Medications: Had prescribed and as per discharge med reconciliation list. Changed Medications: Midodrine HCl (Midodrine HCl) 10 Mg Tab 10 MG PO BID for 30 Days, #60 TAB (Changed from: TID@0600,1200,1800; 90) Continued Medications: Acetaminophen (Tylenol Extra Strength) 500 Mg Tab 1000 MG PO Q6HP PRN, #30 TAB prn fever or pain Cholestyramine (Questran Powder) 4 Gm Pw 4 GM PO BID, #14 POW (This prescription has been renewed) Diphenoxylate W/ Atropine (Lomotil) 2.5 Mg Tab 2 TAB PO TID PRN for FOR DIARRHEA, #30 TAB Famotidine (Pepcid Tablet) 20 Mg Tb 1 TAB PO HS, #60 TAB 5 Refills Levothyroxine Sodium (Levothyroxine Sodium) 50 Mcg Tab 50 MCG PO QAM for 30 Days, MCG Sumatriptan Succinate (Sumatriptan Succinate) 100 Mg Tab 100 MG PO PRN, MG Discontinued Medications: Cephalexin ( Keflex 500) 500 Mg Cap 1 CAP PO QID PRN, #40 CAP Cholecalciferol (Kp Vitamin D) 1,000 Unit Cap 5000 UNIT PO DAILY, CAP Hydrocortisone Acetate (Anusol-Hc) 25 Mg Sup 1 SUPP MT BID, #14 SUPP Loperamide HCl (Loperamide HCl) 2 Mg Tab 2 MG PO Q2HPRN PRN, #40 TAB Megestrol Acetate (Appetite) (Megestrol Acetate) 625 Mg/5 Ml Pilar 625 MG PO DAILY PRN for 30 Days, #30 EA Metronidazole (Flagyl) 500 Mg Tab 1 TAB PO TID for 10 Days, #30 TAB Pantoprazole Sodium Sesquihydr (Protonix) 40 Mg Tab 40 MG PO DAILY, #30 TAB Potassium Chloride (Potassium Chloride ER) 20 Meq Tab 20 MEQ PO DAILY, #3 Prochlorperazine Maleate (Compazine) 10 Mg Tb 0.5 TAB PO TID, #30 TAB 3 Refills Simethicone (Simethicone) 80 Mg Chw 2-4 TAB PO Q6HP PRN, #30 TAB.CHEW prn gas Simvastatin (Simvastatin) 5 Mg Tab 5 MG PO HS, TAB Sulfamethoxazole W/Trimethopri (Bactrim Ds Tablet) 1 Tab Tb 1 TAB PO BID for 7 Days, #14 TAB Tamsulosin Hcl (Flomax) 0.4 Mg Cap 1 CAP PO DAILY, #30 CAP 11 Refills Discharge Statement: "Patient was advised to return to the ER or call 911 if any headaches, dizziness, shortness of breath, chest pain, abdominal pain, bleeding, fevers, or worsening of medical condition. Patient was counseled about treatment plan, medications, possible side effects, patientverbalized understanding. All questions were answered to the best of my ability. This discharge took greater then 30 minutes in planning, reviewing documentation, counseling the patient, and discussing with other team members." ASSESSMENT ASSESSMENT Assessment Diarrhea, colitis, chronic hypotension on midodrine MADISON OTT MD Jun 07, 2024 16:24
[2024-06-07 16:58] VITALS: BP 101/68; PULSE 69; RESP 18; TEMP 97.8; O2SAT 99
[2024-06-07] MEDS: POTASSIUM EFFERVESENT TAB 25 MEQ PO ONE (17:04)
[2024-06-07 18:52] VITALS: BP 101/68; PULSE 69; RESP 18; TEMP 97.8; O2SAT 99
--- NOTE | 2024-06-07 21:03 | DVHPN2 ---
Progress Note - Dictate Date Seen: Jun 07, 2024 Medical Necessity Reason Pt with a Central, PICC or Fol: No The following are medically ne: Ordaz Catheter Reason for ordaz catheter: Strict I&O Subjective Patient seen and examined at bedside. Remains on supplemental oxygen Overnight events reviewed. vital signs Vital Sign Date Time Temp Pulse Resp B/P (MAP) Pulse Ox O2 Delivery O2 Flow Rate FiO2 06/07/24 18:52 97.8 69 18 99 06/07/24 16:58 101/68 (79) 06/07/24 08:00 Nasal Cannula* 2 28 Total Intake and Output 06/06/24 06/06/24 06/07/24 15:00 23:00 07:00 Intake Total 700 ml 800 ml Output Total 1050 ml Balance 700 ml -250 ml objective Gen.: Patient lying in bed in no apparent distress. On supplemental oxygen. Head: Normocephalic, atraumatic. Eyes: EOMI/PERRLA. Ears: Normal hearing. Normal anatomy. Neck/trachea: Trachea midline, supple. Nose: Normal external anatomy. Mouth: Moist mucous membranes. Chest: Decreased air entry bilaterally. No wheezing or rhonchi. Cardiovascular: Positive S1, positive S2. Regular rate and rhythm. Abdomen: Positive bowel sounds in all 4 quadrants. Soft, non-tender, non- distended. : Deferred. Rectal: Deferred. Skin: Warm, dry. Intact. Extremities: 2+ radial pulses bilaterally. No lower extremity edema. Neuro: Awake, alert, oriented x3. No gross motor or sensory deficits. Cranial nerves II through XII intact. Gait not assessed. laboratory and microbiology Laboratory Tests 06/07/24 06:38 06/04/24 03:29 Test 06/07/24 06:38 Range/Units Serum Glucose 106 74-106 mg/dL Assessment/Plan Impression: Dependence on supplemental oxygen Septic shock Clostridium difficile related colitis. [id number] myocardial infarction Lactic acidosis Hypokalemia Left bundle branch block Prolonged QTC Leukocytosis GERD Hyperlipidemia. History of metastatic melanoma. Hx of nicotine dependence Events: Remains on supplemental oxygen, 2 LPM NC Taper O2 as tolerated No new complaints. Incentive spirometry Continue antibiotics On midodrine/hydrocortisone for BP Taper steroids as tolerated Pepcid for GI prophylaxis Monitor renal function. Monitor electrolytes. Supplement as necessary. Potassium supplementation Patient is stable for discharge from the pulmonary standpoint. Disposition: Home with home health Labs and imaging reviewed. Rest of plan as noted below. Plan: Supplemental oxygen Titrate to keep O2 sats above 92%. Continue antibiotics Taper steroids as tolerated On midodrine/hydrocortisone for blood pressure. Monitor renal function. Monitor electrolytes. Supplement as necessary. Potassium supplementation Monitor ins and outs. DVT prophylaxis. Prognosis: Guarded given patient's multiple co-morbidities. Rest of plan per hospitalist and other consultants. Thank you, [employer] Adam, for allowing me to participate in this patient's care. Further recommendations will depend on the patient's clinical course. Please do not hesitate to contact me if you have any questions or concerns. This medical document was created using an electronic medical record system with [employer] dictation system. Although these documentations are being carefully reviewed, there may still be some phonetic and typographical changes. The errors are purely typographical, due to imperfection on the software program, and do not reflect any compromise in the patient's medical care. Dietary Evaluation Review Comments: 1) Advance to cardiac diet when medically feasible 2) Encourage good PO intake 3) Continue to monitor electrolytes Expected Outcomes/Goals: 1) appetite and labs to improve 2) diet to advance 3) f/u in 3-5 days Plan discussed with: Patient, Other (MARE Gtz) NELLIE VEGAS MD Jun 07, 2024 21:03
--- NOTE | 2024-06-08 12:44 | ECG ---
[facility] Test Date: 2024-06-03 Test Time: 14:17:46 Pat Name: MELANIA MAGUIRE Department: ER Room: 0219 B Gender: M Matcher: FELICE : 1975 Requested By: RAMSEY MACE Order Number: [id number] Reading MD: Measurements Intervals [place] Rate: 74 P: 71 MS: 154 QRS: 36 QRSD: 165 T: 34 QT: 512 QTc: 569 Interpretive Statements Incomplete analysis due to missing data in precordial lead(s) Sinus rhythm Ventricular premature complex Left bundle branch block Missing lead(s): V2,V4 Please click the below link to view image of tracing.
--- NOTE | 2024-06-08 23:13 | DVHPN2 ---
Consult Progress Note Date Seen: Jun 07, 2024 Subjective Patient reports: Other (not having any diarrhea , able to move his upper extremities and lower extremities without any pain ) Objective vital signs Vital Sign Date Time Temp Pulse Resp B/P (MAP) Pulse Ox O2 Delivery O2 Flow Rate FiO2 06/07/24 18:52 97.8 69 18 99 06/07/24 16:58 101/68 (79) 06/07/24 08:00 Nasal Cannula* 2 28 Total Intake and Output 06/07/24 06/07/24 06/08/24 15:00 23:00 07:00 Intake Total 650 ml Output Total 600 ml Balance 50 ml medications Physical Exam general appearance : Tired,Generalized weakness cardiovascular : Tachycardia,Sinus rhythm,No murmurs gastrointestinal : Soft abdomen,Presence of bowel sounds neurological : Normal neurological examination musculoskeletal : Lower extremity sensory and motor intact laboratory and microbiology Laboratory Tests 06/07/24 06:38 06/04/24 03:29 Test 06/07/24 06:38 Range/Units Serum Glucose 106 74-106 mg/dL Problem List/Assessment/Plan Problems(with codes): (1) Nausea vomiting and diarrhea (2) Hypotension (3) Ordaz catheter problem (4) Hemorrhoids (5) Urinary retention (6) Colitis (7) Dehydration Problem List/Assessment/Plan Problem List : Septic shock Hypovolemic shock Acute colitis ? Due to C diff infection, immunotherapy or radiation therapy induced Acute diarrhea ? C diff infection NSTEMI type 2 likely due to shock Lactic acidosis Severe dehydration Hypokalemia Left bundle branch block Prolonged QTC Assessment: patient is a 48 year old male with a past medical history of malignant melanoma and malignancies on the thigh and diffuse colitis of prior infectious ideologies, esophagitis , on immuno therapy , adrenal insufficiency . taking hydrochloric 2x a day and is on Yurvy immunotherapy and radiation . presents with worsening diarrhea for last 3 weeks , watery and was recently diagnosed with C diff infection 6 months ago and was on vancomycin but continued to have weakness. Patient states had positive C diff test at outpatient facility but was unable to confirm this. temp of 100 at home and now currently on levofed and vasopressin to maintain blood pressures and started on oral vancomycin. Has surgical history of cholecystectomy and gastric bypass and is allergic to penicillins and ciprofloxacin . Patient was tachycardic to 101 and having a fever as high as 99.5 and requiring levofed to keep MAPS in the 60s . whitecount was 14.1, hemoglobin 111 , platelet count 462 , BUN of 8. On physical exam patient was malnourished , weak , diaphoretic with hyperactive bowel sounds and having diarrhea. Patient has been admitted for septic shock . other problems listed on patients problem list include: malignant melanoma , hypovolemic shock , possible c diff infection , acute colitis , acute diarrhea , lactic acidosis , severe dehydration, left branch block . prolonged QTC above [address] abdomen and pelvis shows patient with finding of moderate diffuse fluid filled distended loops of the colon , moderate colonic ball wall thickening involving the descending colon. finding concerning for diarrhea and colitis . Plan would be to follow up on stool culture , was notified by lab that stool is positive for camperabactor antigen so will start patient on azithromycin 500 milligrams daily, will require a prolonged course given he is immunocompromised . Continue hydrocortisone , recommend endocrinology consult to see if patients in need of stressosteroids , recommend consulting hematology and oncology to evaluate chemotherapy and or immunotherapy is resulting in patients diarrhea and colitis symptoms . follow up on blood and urine cultures givent hat patient is immunocompromised from recent chemotherapy would continue patient on broadened antibiotic therapy with vancomycin and cefepime , continue IV flagyl . NPO vancomycin for presumed c diff colitis until results have returned . defer management of Nstemy to primary team. 2/5: Patient is coming down off levofed and had 1 large bowel movement this morning but still watery , no fevers . whitecount is 9.8 and clinically patients abdomen is still distended therefore will continue patient on broad antibiotic treatments . continue vancomycin and cefepine, continue IV flagyl and vancomycin , azithromycin. recommend evaluation for hematology oncology to see if chemotherapy and immunotherapy is related to patient colitis and diarrhea symptoms 2/6: feeling better and had only 1 bowel movement and appearing more euvolemic , better hydration and good capillary refill but is still intermittently tachycardic but diarrhea is improving . Plan would be to continue azithromycin and cefepime . C diff testing was negative so can discontinue all forms of vancomycin and decrease pressures as patients BP is improving and defer to primary team for management of steroid use 2/7: oral vancomycin was restarted due to patient having 2 loose bowel movements but not having any abdominal pain and abdominal distention has resolved . Plan would be to continue cefepime and azithromycin . if patients diarrhea improves in the next 24-48 hours would highly recommend discontinuing oral vancomycin as patient soto not demonstrate a positive C diff test that would be consistent with a c diff diagnosis 06/04: doing better clinically and transferred out of the ICU 06/05: diarrhea appears to be resolvign and ordaz appears to be draining clear urine , whitecount is 8.1 06/06: patients bowel movements are slightly higher since stopping azithromycin however not having diarrhea , whitecount is normal , cefapime has been stopped yesterday 06/07: whitecount is normal , ahving solid bowel movements Plan: - would recommend stopping Oral Vancomycin as patient doesn't have an active C diff - will monitor patient off all antibiotics , if diarrhea recurs would restart azithromycin at least orally and hope QTC does not prolong , can hold off for now - no plans to discharge patients on any antibiotics at this time -patient came positive for Campylobacter, negative for shiga toxin. -Rigorous IV fluid resuscitation. And maintain map gradient 65, continued to be on vasopressor. -continue cardiology recommendation: Prolonged QTC, LBB, we will in continue azithromycin for now, continue to monitor QTC, recommend regular daily EKG. Plan discussed with: Other Dietary Evaluation Review Comments: 1) Advance to cardiac diet when medically feasible 2) Encourage good PO intake 3) Continue to monitor electrolytes Expected Outcomes/Goals: 1) appetite and labs to improve 2) diet to advance 3) f/u in 3-5 days DEBORAH MÉNDEZ MD Jun 08, 2024 23:13
== END 2024-06-07 19:58 | disposition home health service (06) | DRG 871 ==
LOC: EDBD 20:42 → ER 20:42 → OVERFLOW 05-31 04:29 → ICU WEST 06-03 19:06 → TELE-CENTR 06-04 12:45 → CENTRAL 06-06 01:57
PROVIDERS: ADMIT Nurse Practitioner Family; ATTEND Nurse Practitioner Family
PROC: 02HV33Z Insertion of Infusion Device into Superior Vena Cava, Percutaneous Approach (ICD-10-PCS; principal; 2024-05-31)
DX: A41.9 Sepsis, unspecified organism (principal); I21.A1 Myocardial infarction type 2; R57.1 Hypovolemic shock; R65.21 Severe sepsis with septic shock; A04.72 Enterocolitis due to Clostridium difficile, not specified as recurrent; E87.20 Acidosis, unspecified; A04.5 Campylobacter enteritis; E27.40 Unspecified adrenocortical insufficiency; E86.0 Dehydration; E86.1 Hypovolemia; E87.6 Hypokalemia; I44.7 Left bundle-branch block, unspecified; K21.9 Gastro-esophageal reflux disease without esophagitis; E03.9 Hypothyroidism, unspecified; E78.5 Hyperlipidemia, unspecified; G89.4 Chronic pain syndrome; I95.89 Other hypotension; I10 Essential (primary) hypertension; Z87.11 Personal history of peptic ulcer disease; Z99.81 Dependence on supplemental oxygen; Z85.820 Personal history of malignant melanoma of skin; Z87.891 Personal history of nicotine dependence; Z98.84 Bariatric surgery status; Z88.0 Allergy status to penicillin; Z82.5 Family history of asthma and other chronic lower respiratory diseases; Z82.49 Family history of ischemic heart disease and other diseases of the circulatory system; Z80.0 Family history of malignant neoplasm of digestive organs; Z90.49 Acquired absence of other specified parts of digestive tract
CPT/HCPCS: 36415; 71045; 74018; 74176; 80048; 80053; 80202; 81001; 82270; 82565; 82962; 83605; 83735; 84132; 84484; 85007; 85025; 85027; 85048; 87040; 87045; 87081; 87086; 87427; 87493; 93005; 93306; 96360; 97163; 99291; G0378; J0692; J1885; J2003; J2405; J2470; J3480; J3490